=== PATIENT | female | born 1995 | race Caucasian/White ===

== ENCOUNTER 2020-05-21 11:29 | Outpatient (REF) | payer SELFPAY | END 2020-05-21 11:30 | disposition home or self-care (01) | LOC: HO.LNC 11:29 | PROVIDERS: Visit Provider Pathology Anatomic Pathology & Clinical Pathology | DX: Z13.89 Encounter for screening for other disorder (principal) ==

== ENCOUNTER 2020-06-02 07:56 | Outpatient (REF) | payer OTHER, SELFPAY | END 2020-06-02 07:57 | disposition home or self-care (01) | LOC: HO.MDS 07:56 | PROVIDERS: PCP Internal Medicine; Visit Provider Internal Medicine | DX: D50.9 Iron deficiency anemia, unspecified (principal) | CPT/HCPCS: 96365; 96366; J1200; J1750; Q0163 ==

== ENCOUNTER 2020-07-03 12:26 | Outpatient (REF) | payer OTHER, SELFPAY ==
[2020-07-03 12:54] LABS: COVID-19 Test Negative (Negative)
== END 2020-07-03 12:27 | disposition home or self-care (01) ==
LOC: HO.EMPCOV 12:26
PROVIDERS: Visit Provider Internal Medicine
DX: Z20.828 Contact with and (suspected) exposure to other viral communicable diseases (principal)
CPT/HCPCS: 87635; C9803

== ENCOUNTER 2020-07-10 11:41 | Outpatient (REF) | payer OTHER, SELFPAY ==
[2020-07-10 12:01] LABS: COVID-19 Test Negative (Negative)
== END 2020-07-10 11:42 | disposition home or self-care (01) ==
LOC: HO.EMPCOV 11:41
PROVIDERS: Visit Provider Internal Medicine
DX: Z20.828 Contact with and (suspected) exposure to other viral communicable diseases (principal)
CPT/HCPCS: 87635; C9803

== ENCOUNTER → 2020-07-15 10:43 | Outpatient (BNVA) | payer OTHER, SELFPAY | PROVIDERS: Visit Provider Physician Assistant Medical | DX: Z13.89 Encounter for screening for other disorder (principal) | CPT/HCPCS: 99202 ==

== ENCOUNTER → 2020-07-17 12:56 | Outpatient (BNVA) | payer OTHER, SELFPAY | PROVIDERS: Visit Provider Physician Assistant Medical | DX: Z76.89 Persons encountering health services in other specified circumstances (principal) | CPT/HCPCS: 99213 ==

== ENCOUNTER → 2020-07-21 14:03 | Outpatient (BNVA) | payer OTHER, SELFPAY | PROVIDERS: Visit Provider Physician Assistant | DX: M54.5 Low back pain (principal) | CPT/HCPCS: 72110; 99214 ==

== ENCOUNTER → 2020-07-28 13:31 | Outpatient (BNVA) | payer OTHER, SELFPAY | PROVIDERS: PCP Internal Medicine; Visit Provider Physician Assistant Medical | DX: Z13.89 Encounter for screening for other disorder (principal) | CPT/HCPCS: 99213 ==

== ENCOUNTER 2020-07-28 14:46 | Outpatient (RCR) | payer OTHER, SELFPAY ==
--- NOTE | 2020-07-28 16:18 | MHC.PT.EP ---
[facility] [place] Office [place] Office [place] Office [address] Seb Burdick [address] [phone] F: [phone] F: [phone] F: [phone] F: [phone] Physical Therapy Plan of Care Date of Evaluation: 07/28/20 Date of Surgery: NA Diagnosis: LUMBAR AND THORACIC STRAIN Assessment: Pt IS 24 YO F REFERRED TO PT FROM AFTER AN INCIDENT AT WORK ON 07/14/20. 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 FELT PAIN IN MID>LB ABOUT 1 HR LATER. PRESENTS TO PT WITH TIGHT LUMBAR PARASPINALS WITH LIMITED TRUNK ROM. Pt IS HYPERLORDOTIC AND IS TTP LUMBAR PARASPINALS, SHOULD BENEFIT FROM PT TO ADDRESS THESE ISSUES Frequency and Duration: The patient will be seen 3X/WK X 4 WKS Short Term Goals: 1. I HEP 2. INCREASED AWARENESS BACK CARE AND POSTURE 3. Pt TO DEMONSTRATE 2-3 TASKS WITH PROPER BODY MECH Roller Pneumatic Goals: 1. RTW 2. IMPROVED MOD OSWESTRY 3. IMPROVED TRUNK ROM 25% T/O 4. DECREASED BACK PAIN AT LEAST 50% WITH ADLS Treatment Plan: Modalities to reduce pain, spasms and effusion. Manual therapy to restore motion and function. Therapeutic exercise to improve strength and flexibility. Neuromuscular re-education for posture and balance. Therapeutic activities to return to functional activities of daily living. Electronically signed by: MATT ROACH PT Please sign and return to therapist. Thank you for your referral.
--- NOTE | 2020-08-18 14:28 | MHC.PT.DC ---
[facility] [place] Office [place] Office [place] Office [address] Seb Burdick [address] [phone] F: [phone] F: [phone] F: [phone] F: [phone] Physical Therapy Discharge Report Diagnosis: LUMBAR AND THORACIC STRAIN Date of Surgery: NA Date of Evaluation: 07/28/20 Date of Discharge: 08/18/20 Treatments to Date: 1 Cancellations to Date: 0 No Shows to Date: 6 Discharge Status: Visit Non-compliance Discharge Summary: Pt SEEN FOR INIT EVAL ONLY THEN NO SHOWED REMAINING SHEDULED APPTS. AT INIT EVAL PER NOTE: Pt IS 24 YO F REFERRED TO PT FROM AFTER AN INCIDENT AT WORK ON 07/14/20. 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 FELT PAIN IN MID>LB ABOUT 1 HR LATER. PRESENTS TO PT WITH TIGHT LUMBAR PARASPINALS WITH LIMITED TRUNK ROM. Pt IS HYPERLORDOTIC AND IS TTP LUMBAR PARASPINALS, SHOULD BENEFIT FROM PT TO ADDRESS THESE ISSUES Electronically signed by: MATT ROACH PT Please sign and return to therapist. Thank you for your referral.
== END 2020-08-18 14:33 | disposition other institution (70) ==
LOC: HO.PT 14:46
PROVIDERS: PCP Internal Medicine; Visit Provider Physician Assistant
DX: S29.012D Strain of muscle and tendon of back wall of thorax, subsequent encounter (principal); S39.012D Strain of muscle, fascia and tendon of lower back, subsequent encounter
CPT/HCPCS: 97110; 97161

== ENCOUNTER 2021-10-28 12:21 | Outpatient (REF) | payer OTHER, SELFPAY ==
[2021-10-28 13:49] LABS: MANUAL DIFF FLAG NO
[2021-10-28 13:53] LABS: Basophils Percent Auto 0.5 % (0-2); Eosinophils Absolute Auto 0.2 X10*3/uL (0.0-0.4); Hematocrit 43.9 % (37.0-47.0); Hemoglobin 13.7 g/dl (12.0-16.0); Imm Gran Abs Auto 0.03 X10*3/uL (0.00-0.03); Imm Gran Pct Auto 0.4 % (0.0-0.4); Lymphocytes Absolute Auto 1.7 X10*3/uL (1.2-4.9); Lymphocytes Percent Auto 21.8 % (20-40); Mean Corpuscular HGB Conc 31.2 g/dl (31.0-35.0); Mean Corpuscular Hemoglobin 25.8 pg (27.0-33.0); Mean Corpuscular Volume 82.5 fL (80.0-98.0); Mean Platelet Volume 10.9 fL (9.4-12.3); Monocytes Absolute Auto 0.6 X10*3/uL (0.1-1.2); Monocytes Percent Auto 7.5 % (2-11); Neutrophils Absolute Auto 5.4 x10*3/uL (2.0-8.3); Neutrophils Percent Auto 67.8 % (45-73); Platelet Count 342 X10*3/uL (160-400); Red Blood Count 5.32 X10*6/uL (4.20-5.50); Red Cell Distribution Width 14.7 % (11.0-16.0)
[2021-10-28 14:13] LABS: Alanine Aminotransferase 11 U/L (0-31); Albumin Level 4.1 g/dL (3.5-5.0); Alkaline Phosphatase 65 U/L (39-117); Anion Gap 11 (12-20); Aspartate Amino Transferase 16 U/L (5-31); Bilirubin Total 0.2 mg/dL (0.0-1.0); Blood Urea Nitrogen 9 mg/dL (9-16); Calcium 9.3 mg/dL (8.4-10.2); Carbon Dioxide 24 mmol/L (22-29); Chloride 108 mmol/L (96-108); Estimated Glomerular Filt Rate > 60; Glucose Random 97 mg/dL (60-115); Potassium 4.3 mmol/L (3.3-5.1); Sodium 139 mmol/L (135-145); Total Protein 6.6 g/dL (6.5-8.0)
[2021-10-28 14:28] LABS: Ferritin 40 ng/mL (10-122); TSH reflex Free T4 0.84 uIU/mL (0.32-4.0)
[2021-10-28 14:33] LABS: Vitamin B12 188 pg/mL (200-900)
[2021-11-01 14:17] LABS: Vitamin D 25-OH, D2 <4 ng/mL; Vitamin D 25-OH, D3 25 ng/mL; Vitamin D 25-OH, Total 25 ng/mL (30-100)
== END 2021-10-28 12:22 | disposition home or self-care (01) ==
LOC: HO.HMGCLDS 12:21
PROVIDERS: PCP Internal Medicine; Visit Provider Internal Medicine
DX: E61.1 Iron deficiency (principal); R53.83 Other fatigue; E53.8 Deficiency of other specified B group vitamins
CPT/HCPCS: 36415; 80053; 82306; 82607; 82728; 84443; 85025

== ENCOUNTER 2021-11-08 22:21 | Emergency (ER) | payer OTHER, SELFPAY ==
--- NOTE | ~2021-11-08 | US_ITS ---
EXAMINATION: US pelvic ovarian doppler, US pelvic limited CLINICAL INFORMATION: Bilateral pelvic pain. COMPARISON: Abdominal ultrasound 04/26/2019. Pelvic ultrasound 09/07/2018. CT abdomen pelvis 06/05/2018. TECHNIQUE: Transabdominal pelvic ultrasound. FINDINGS: Uterus: The uterus measures 11.7 cm x 4.1 cm x 5.6 cm is present in an anteverted, retroflexed configuration. The endometrial echo complex measures 2 mm in maximum width. No uterine parenchymal lesions identified. The right ovary measures 2.0 cm x 1.1 cm x 1.4 cm for an estimated volume of 1.6 mm. The left ovary measures 2.5 cm x 1.7 cm x 2.0 cm for an estimated volume of 4.5 mm. The ovaries are normal in appearance. Transabdominal spectral interrogation demonstrates grossly normal low resistive vascular waveforms within the left and right ovaries. Of note, the right ovary is suboptimally visualized secondary to a difficult sonographic window to visualize the right adnexal region. No free intraperitoneal fluid is identified. US/US pelvic ovarian doppler IMPRESSION: Normal transabdominal pelvic ultrasound. Normal transabdominal sonographic appearance of the uterus and ovaries.
--- NOTE | ~2021-11-08 | US_ITS ---
EXAMINATION: US pelvic ovarian doppler, US pelvic limited CLINICAL INFORMATION: Bilateral pelvic pain. COMPARISON: Abdominal ultrasound 04/26/2019. Pelvic ultrasound 09/07/2018. CT abdomen pelvis 06/05/2018. TECHNIQUE: Transabdominal pelvic ultrasound. FINDINGS: Uterus: The uterus measures 11.7 cm x 4.1 cm x 5.6 cm is present in an anteverted, retroflexed configuration. The endometrial echo complex measures 2 mm in maximum width. No uterine parenchymal lesions identified. The right ovary measures 2.0 cm x 1.1 cm x 1.4 cm for an estimated volume of 1.6 mm. The left ovary measures 2.5 cm x 1.7 cm x 2.0 cm for an estimated volume of 4.5 mm. The ovaries are normal in appearance. Transabdominal spectral interrogation demonstrates grossly normal low resistive vascular waveforms within the left and right ovaries. Of note, the right ovary is suboptimally visualized secondary to a difficult sonographic window to visualize the right adnexal region. No free intraperitoneal fluid is identified. US/US pelvic limited IMPRESSION: Normal transabdominal pelvic ultrasound. Normal transabdominal sonographic appearance of the uterus and ovaries.
[2021-11-08 23:33] VITALS: BP 136/72; PULSE 99; RESP 18; TEMP 36.9; O2SAT 98; BMI 32.9
--- NOTE | 2021-11-09 00:37 | ED_ITS ---
HPI - Female Genitourinary General Chief complaint: Urogenital-Female Stated complaint: Vaginal pain Time Seen by Provider: 11/09/21 00:10 Source: patient Mode of arrival: ambulatory Limitations: no limitations History of Present Illness HPI Narrative: This is a 26-year-old female presenting to the emergency department with swelling to the labia and vaginal discharge since , 3 days ago. Patient tells me that she has been having a clear / white thin vaginal discharge, she tells me she has been having a lot of discharge and has been using a pad. She also reports burning to the labia with urination She also reports intermittent itching.. Patient tells me that she recently finished a prescription of amoxicillin for strep throat and this started shortly after. Patient tells me she has been with the same partner for a while and she has low suspicion for STDs/ STIs. She reports that her vagina hurts and she is having a hard time describing this pain. She points at her mons pubis and tells me it hurts there. She denies urinary frequency, urgency, chest pain, shortness of breath, fevers, chills, vaginal bleeding, constipation, diarrhea , flank pain. MD elicited complaint: vaginal discharge Onset (ago): day(s) (3) Location of symptoms: external genitalia Severity: moderate Quality of pain: burning Consistency: constant Vaginal discharge: white and creamy Vaginal bleeding: moderate Urinary symptoms: Dysuria Exacerbating factors: none Relieving factors: none Associated symptoms: denies other symptoms Treatment prior to arrival: none Sexual activity: Yes Patient : No Related Data Home Medications Medication Instructions Recorded Confirmed albuterol sulfate 90 mcg/actuation 1 puff PO Q4H PRN 05/13/20 10/28/21 aerosol inhaler Previous Rx's Medication Instructions Recorded amoxicillin 875 mg tablet 875 mg PO Q12H #14 tab 10/30/21 cholecalciferol (vitamin D3) 1,250 1,250 mcg PO QWEEK 90 Days #13 cap 11/03/21 mcg (50,000 unit) capsule cefuroxime axetil 250 mg tablet 250 mg PO BID 7 Days #14 tab 11/09/21 doxycycline hyclate 100 mg capsule 100 mg PO BID 7 Days #14 cap 11/09/21 fluconazole 150 mg tablet 150 mg PO DAILY #1 tab 11/09/21 Allergies Allergy/AdvReac Type Severity Reaction Status Date / Time No Known Allergies Allergy Verified 11/08/21 23:33 [No Known Allergies*] Review of Systems Review of Systems: Constitutional : No Weight loss, No Fever, No Chills, No Fatigue, No Malaise ENT/Mouth : No sore throat, No Rhinorrhea Eyes: No Eye Pain, No Swelling, No Redness Cardiovascular : No Chest Pain, No SOB, No Dyspnea on Exertion, No Orthopnea, No Edema, No Palpitations Respiratory : No Cough, No Sputum, No Wheezing Gastrointestinal : No Nausea, No Vomiting, No Diarrhea, No Constipation, No abdominal Pain, No Hematochezia, No Melena Genitourinary : No Dysuria, No Urinary Frequency, No Hematuria, + vaginal discharge Musculoskeletal : No joint pain, No Myalgias, No Joint Swelling Skin : No Skin Lesions, No rash Neuro : No Weakness, No Numbness, No Dizziness, No Headache Psych : No Anxiety/Panic, No Depression All other systems reviewed and are negative Yes all other systems are reviewed and are negative [facility] Past Medical History Attestation statement: The following information was validated with the patient. Source: old records reviewed and nursing notes reviewed Medical History B12 deficiency Chronic headaches Fatigue Iron deficiency Swelling of lower extremity Surgical History No pertinent past surgical history Family History Family History Father No problems noted. Mother No problems noted. Sister No problems noted. Social History Social History Housing: Apartment Patient Tobacco Use Status: Never used Tobacco Advance Directives: No Patient : No Current occupational status: employed Cognitive needs: No Hearing needs: No Vision needs: No Physical Exam Vital Signs: Vital Signs: Last Vital Signs Temp 98.5 F 11/08/21 23:33 Pulse 99 11/08/21 23:33 Resp 18 11/08/21 23:33 BP 136/72 11/08/21 23:33 Pulse Ox 98 11/08/21 23:33 BMI result Body Mass Index 32.9 vital signs stable Appearance: Alert.? Oriented X3.? No acute distress.? Head: Normocephalic, atraumatic, no step-offs or deformities Eyes: Pupils equal, round and reactive to light.? ENT: Pharynx normal.? Neck: Normal inspection.? Neck supple.? CVS: Normal heart rate and rhythm.? Pulses normal.? Respiratory: No respiratory distress.? Breath sounds normal.? Abdomen: Soft and nontender.? Skin: Skin warm and dry.? Normal skin color.? Normal skin turgor.? Sensitive exam: swelling to bilateral labia, with white cheese like discharge, some thin discharis also noted. No lesions or lumps noted to the external genitalia. Extremities: No lower extremity edema.? No calf ttp. 5/5 strength to bilateral upper and lower extremities Back: No midline tenderness, no C-spine tenderness, full range of motion, no CVA tenderness bilaterally Neuro: Oriented X 3.? No motor deficit.? No sensory deficit. CN 2-12 intact Course Reevaluation(s) Reevaluation #1: Urine positive for UTI.Normal transabdominal pelvic ultrasound w/ Doppler. Normal transabdominal sonographic appearance of the uterus and ovaries. Based off patient history and physical exam I do not suspect torsion No Trichomonas. Positive for yeast. Patient agrees to prophylactic treatment for STDs. She will be discharged home on doxycycline to cover for chlamydia. She will be given ceftriaxone here to cover for gonorrhea. Advised her to have full panel STD testing. I will give her 1st dose of Diflucan here. And I will give her an additional dose for home. Time: 02:26 Reevaluation #2: comfortable with discharge home with PCP and OBGYN follow-up Time: 03:20 MDM - Female Genitourinary MDM Narrative Medical decision making narrative: 1230 26-year-old female presents with vaginal discharge x3 days. Physical exam significant for swelling to bilateral labia, with white cheese like discharge, some thin discharis also noted. No lesions or lumps noted to the external genitalia. plan at this time is for patient to self swab, pelvic ultrasound to rule out intra pelvic etiologies. Unlikely torsion based off story. Medical Records Attestation: I reviewed the patient's medical records. Lab Data Attestation: I reviewed the patient's lab results. Labs: Lab Results 11/08/21 11/08/21 Range/Units 23:50 23:50 Urine Color YELLOW Urine Appearance CLOUDY Urine pH 6.0 (5.0-8.0) Ur Specific [place] >= 1.030 H (1.005-1.025) Urine Protein 1+ H (NEG-TRACE) MG/DL Urine Glucose (UA) NEG (NEG) MG/DL Urine Ketones 5 (NEG) MG/DL Urine Blood 1+ H (NEG) Urine Nitrite NEG (NEG) Ur Leukocyte Esterase 2+ H (NEG) Urine RBC 10-14 H (0) /HPF Urine WBC 76-150 H (0-4) /HPF Ur Squamous Epith Cells 2+ /LPF Urine Bacteria 3+ /LPF Urine Mucus 3+ /LPF Urine Test NEGATIVE (NEGATIVE) Critical Care Time Critical Care Time Critical Care Time: No Discharge Plan Discharge Clinical Impression: Vaginal yeast infection, Vaginal discharge, Urinary tract infection Patient Disposition: Home, Self-Care Instructions: Yeast Infection (ED), Vaginal Discharge (ED) Additional Instructions: Take your medications as prescribed. If you were prescribed antibiotics today, it is important that you take your medication to their entirety, do not skip any doses, do not finish them early. Follow-up with your primary care provider this week. Follow-up with OBGYN this week. Return to the emergency department with new or worsening symptoms. Such as fevers, chills, chest pain, shortness of breath, nausea, vomiting, dizziness, headache, vision changes, lethargy In case of emergency call 911 Take doxycycline as prescribed. You were given fluconazole here in the emergency department repeat the dose if needed in 2 days. Prescriptions: New doxycycline hyclate 100 mg capsule 100 mg PO BID 7 Days Qty: 14 0RF fluconazole 150 mg tablet 150 mg PO DAILY Qty: 1 0RF cefuroxime axetil 250 mg tablet 250 mg PO BID 7 Days Qty: 14 0RF No Action amoxicillin 875 mg tablet 875 mg PO Q12H Qty: 14 0RF cholecalciferol (vitamin D3) 1,250 mcg (50,000 unit) capsule 1,250 mcg PO QWEEK 90 Days Qty: 13 0RF albuterol sulfate 90 mcg/actuation HFA aerosol inhaler 1 puff PO Q4H PRN (Reason: Shortness Of Breath) 0RF Referrals: Rober Osorio MD [Primary Care Provider] - 2 days Godwin Baez MD [Physician] - 2 days Stand Alone Forms: Work/School Release Interventions: ED Discharge Assessment Last Done: 11/09/21 02:50 Discharge Date/Time: 11/09/21 02:53
[2021-11-09 00:46] LABS: Appearance Urine CLOUDY; Color Urine YELLOW; Glucose Urine UA NEG (NEG); Leukocyte Esterase Urine 2+ (NEG); Nitrite Urine NEG (NEG); Specific Gravity - Urine >= 1.030 (1.005-1.025); UACC Culture Trigger YES; Urine Blood 1+ (NEG); Urine Ketones 5 MG/DL (NEG); Urine Protein 1+ MG/DL (NEG-TRACE)
[2021-11-09 00:49] LABS: UPreg QC Valid YES; Urine Pregnancy NEGATIVE (NEGATIVE)
[2021-11-09 01:19] LABS: Bacteria Urine 3+ /LPF; Mucus Urine 3+ /LPF; Squamous Epithelial Cell Urine 2+ /LPF
[2021-11-09] MEDS: cefTRIAXone sodium 500 MG, Lidocaine HCl 1 % MPF 1 ML IM (02:26)
[2021-11-09] MEDS: Fluconazole 150 MG TABLET PO (02:26)
[2021-11-09 03:22] LABS: CT PCR NOT DETECTED (Not Detect.); NG PCR NOT DETECTED (Not Detect.)
[2021-11-09 10:17] LABS: BV Int Neg Control Negative (Negative); BV Int Pos Control Positive (Positive)
== END 2021-11-09 02:53 | disposition home or self-care (01) ==
PROVIDERS: Physician Assistant; Emergency Provider Emergency Medicine; PCP Internal Medicine
DX: B37.3 Candidiasis of vulva and vagina (principal); N39.0 Urinary tract infection, site not specified
CPT/HCPCS: 76857; 81001; 81025; 87086; 87147; 87480; 87491; 87510; 87591; 87660; 93975; 96372; 99283; 99284; J0696

== ENCOUNTER 2022-08-26 11:04 | Emergency (ER) | payer OTHER, SELFPAY ==
[2022-08-26 11:13] VITALS: BP 136/67; PULSE 74; RESP 18; TEMP 36.6; O2SAT 98; BMI 31.8
--- NOTE | 2022-08-26 11:14 | ED_ITS ---
HPI - Medical Clearance General Chief complaint: Body Fluid Exposure Stated complaint: stuck with needle at work Time Seen by Provider: 08/26/22 11:31 Related Information Home Medications Medication Instructions Recorded Confirmed albuterol sulfate 90 mcg/actuation 1 puff PO Q4H PRN Shortness Of 05/13/20 08/24/22 aerosol inhaler Breath acetaminophen 500 mg tablet 1,000 mg PO Q6H PRN 08/24/22 08/24/22 (Tylenol Extra Strength) Previous Rx's Medication Instructions Recorded amitriptyline 10 mg tablet 10 mg PO BEDTIME 30 days #30 tabs 08/24/22 naproxen 500 mg tablet 500 mg PO ONCE 30 days #10 tabs 08/24/22 sumatriptan succinate 50 mg tablet 50 mg PO ONCE PRN migraine 08/24/22 headache 30 days #10 tabs Allergies Allergy/AdvReac Type Severity Reaction Status Date / Time No Known Allergies Allergy Verified 08/24/22 13:34 [No Known Allergies*] PMFSH Past Medical History Medical History B12 deficiency Chronic headaches Fatigue Iron deficiency Swelling of lower extremity Surgical History No pertinent past surgical history Family History Family History Father No problems noted. Mother No problems noted. Sister No problems noted. Social History Social History Housing: Apartment Patient Tobacco Use Status: Never used Tobacco Advance Directives: No Advance Directives Information Provided: No Current occupational status: employed Cognitive needs: No Hearing needs: No Vision needs: No Physical Exam Vital Signs: Vital Signs: Last Vital Signs Temp 98 F 08/26/22 11:13 Pulse 74 08/26/22 11:13 Resp 18 08/26/22 11:13 BP 136/67 08/26/22 11:13 Pulse Ox 98 08/26/22 11:13 O2 Del Method 08/26/22 11:13 BMI result Body Mass Index 31.8 Course Course Course Narrative: RME 11:15am 27-year-old female presenting to the ER with complaints of a needlestick injury to her right thumb that occurred prior to arrival while she was at [facility] obtaining blood 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 She reports she irrigated the wound immediately. She reports she is up-to-date on tetanus. She denies any other symptoms complaints concerns injuries at this time. Plan: Post exposure labs ordered at this time. Patient will be sent back to the waiting room to be evaluated in [facility]. Medical Decision Making Lab Data 08/26/22 11:21 Labs: Lab Results 08/26/22 08/26/22 08/26/22 Range/Units 11:21 11:21 11:21 WBC 7.3 (4.8-10.8) X10*3/uL RBC 5.23 (4.20-5.50) X10*6/uL Hgb 13.3 (12.0-16.0) g/dl Hct 42.4 (37.0-47.0) % MCV 81.1 (80.0-98.0) fL MCH 25.4 L (27.0-33.0) pg MCHC 31.4 (31.0-35.0) g/dl RDW 14.2 (11.0-16.0) % Plt Count 357 (160-400) X10*3/uL MPV 9.7 (9.4-12.3) fL Immature Gran % (Auto) 0.8 H (0.0-0.4) % Neut % (Auto) 57.4 (45-73) % Lymph % (Auto) 28.7 (20-40) % [place] % (Auto) 11.1 H (2-11) % Eos % (Auto) 0.8 (0-4) % Baso % (Auto) 1.2 (0-2) % Lymph # (Auto) 2.1 (1.2-4.9) X10*3/uL [place] # (Auto) 0.8 (0.1-1.2) X10*3/uL Eos # (Auto) 0.1 (0.0-0.4) X10*3/uL Baso # (Auto) 0.1 (0.0-0.2) X10*3/uL Abs Immat Gran (auto) 0.06 H (0.00-0.03) X10*3/uL Absolute Neuts (auto) 4.2 (2.0-8.3) x10*3/uL Absolute Nucleated RBC 0.000 (0.0-0.012) X10*3/uL Nucleated RBC % (auto) 0.0 (0.0-0.2) /100WBC Sodium 141 (135-145) mmol/L Potassium 4.7 (3.3-5.1) mmol/L Chloride 109 H (96-108) mmol/L Carbon Dioxide 23 (22-29) mmol/L Anion Gap 14 (12-20) BUN 10 (9-16) mg/dL Creatinine 0.81 (0.5-1.4) mg/dL Estim Creat Clear Calc 106.4 Estimated GFR > 60 Random Glucose 83 (60-115) mg/dL Calcium 9.2 (8.4-10.2) mg/dL Total Bilirubin 0.4 (0.0-1.0) mg/dL Direct Bilirubin < 0.2 (0.0-0.5) mg/dL AST 18 (5-31) U/L ALT 13 (0-31) U/L Alkaline Phosphatase 70 (39-117) U/L Total Protein 6.7 (6.5-8.0) g/dL Albumin 4.0 (3.5-5.0) g/dL Lipase 15 (8-78) U/L Hep Bs Antigen Negative (Negative) Hep Bs Antibody REACTIVE (Nonreactive) Hep B Core Total Ab Nonreactive (Nonreactive) Hepatitis C Ab (EIA) Nonreactive (Nonreactive) HIV 1&2 Ab/P24 Ag 4thGn Nonreactive (Nonreactive) Discharge Plan Discharge Clinical Impression: Exposure to blood or body fluid, Accidental hypodermic needlestick injury Patient Disposition: Home, Self-Care Instructions: Needle Stick Injuries (ED) Additional Instructions: Your levels were drawn today for hepatitis and HIV. You will be contacted for positive results Please try to find out more information about the patient which you were stuck If you do choose to change her mind and start taking the PEP you need started within 72 hours PEP Must Be Started Within 72 Hours of Possible Exposure to HIV Talk right away (within 72 hours) to your health care provider, an emergency room doctor, or an urgent care provider about PEP if you think you?ve recently been exposed to HIV: * during sex (for example, if the condom broke), * through sharing needles, syringes, or other equipment to inject drugs (for example, cookers), or * if you?ve been sexually assaulted. The sooner you start PEP, the better. Every hour counts. If you?re prescribed PEP, you?ll need to take it daily for 28 days. PEP is for Emergency Situations * PEP is given after a possible exposure to HIV. * PEP is not a substitute for regular use of other?HIV prevention https://www.cdc.gov/hiv/basics/prevention.html . * PEP is not the right choice for people who may be exposed to HIV frequently. * If you are at ongoing risk for HIV, such as through repeated exposures to HIV, talk to your health care provider about?PrEP https://ww w.cdc.gov/hiv/basics/prep.html ?(pre-exposure prophylaxis). Prescriptions: No Action albuterol sulfate 90 mcg/actuation HFA aerosol inhaler 1 puff PO Q4H PRN (Reason: Shortness Of Breath) acetaminophen [Tylenol Extra Strength] 500 mg tablet 1,000 mg PO Q6H PRN amitriptyline 10 mg tablet 10 mg PO BEDTIME 30 Days Qty: 30 0RF sumatriptan succinate 50 mg tablet 50 mg PO ONCE PRN (Reason: migraine headache) 30 Days Qty: 10 0RF Rx Instructions: do not exceed 4 doses per 24 hrs naproxen 500 mg tablet 500 mg PO ONCE 30 Days Qty: 10 0RF Referrals: [facility] [Outside] Interventions: ED Discharge Assessment Last Done: 08/26/22 12:16 Discharge Date/Time: 08/26/22 12:18
[2022-08-26 11:28] LABS: MANUAL DIFF FLAG NO
[2022-08-26 11:36] LABS: Basophils Absolute Auto 0.1 X10*3/uL (0.0-0.2); Basophils Percent Auto 1.2 % (0-2); Eosinophils Absolute Auto 0.1 X10*3/uL (0.0-0.4); Eosinophils Percent Auto 0.8 % (0-4); Hematocrit 42.4 % (37.0-47.0); Hemoglobin 13.3 g/dl (12.0-16.0); Imm Gran Abs Auto 0.06 X10*3/uL (0.00-0.03); Imm Gran Pct Auto 0.8 % (0.0-0.4); Lymphocytes Absolute Auto 2.1 X10*3/uL (1.2-4.9); Lymphocytes Percent Auto 28.7 % (20-40); Mean Corpuscular HGB Conc 31.4 g/dl (31.0-35.0); Mean Corpuscular Hemoglobin 25.4 pg (27.0-33.0); Mean Corpuscular Volume 81.1 fL (80.0-98.0); Mean Platelet Volume 9.7 fL (9.4-12.3); Monocytes Absolute Auto 0.8 X10*3/uL (0.1-1.2); Monocytes Percent Auto 11.1 % (2-11); Neutrophils Absolute Auto 4.2 x10*3/uL (2.0-8.3); Neutrophils Percent Auto 57.4 % (45-73); Platelet Count 357 X10*3/uL (160-400); Red Blood Count 5.23 X10*6/uL (4.20-5.50); Red Cell Distribution Width 14.2 % (11.0-16.0); White Blood Count 7.3 X10*3/uL (4.8-10.8)
--- OUTSIDE RECORDS SUMMARY | 2022-08-26 11:48 | XMS_ITS | Continuity of Care Document ---
:1996 Author Organization [facility] ic Address [address] [place] [address]- Care Team Providers Name Role Phone Devon YOO, Asma Primary Care Physician [place] [facility] [place] 05/05/22 - 06/18/[address] [address] Attending Physician: Not on Staff, Attending MD Allergies, Adverse Reactions, Alerts No Known Allergies Immunizations Given and Recorded Vaccine Date Status Refusal Reason influenza virus vaccine, inactivated 05/06/21 Given influenza virus vaccine, inactivated1 06/16/16 Given tetanus/diphtheria/pertussis, acel(Tdap) 10/20/16 Given 1Early/Late Reason: Med Not Available Medications Acetaminophen 0 Refills, Maintenance, 03/25/22 12:31:00 EDT, Partial fill upon patient request if the prescriptionis for a schedule II opioid drug. Start Date: 03/25/22 Status: OrderedPrenatal Multivitamins with Folic Acid 1 mg oral tablet 1 tablet, By Mouth, Daily, # 90 tablet, 2 Refills, Maintenance, 01/29/22 15:33:00 EDT, Tablet, [id number], Partial fill upon patient request if the prescription is for a schedule II opioid drug., 1 tablet By Mouth Daily, 160, cm, 01/20/22 14:2... Start Date: 01/29/22 Status: OrderedReglan 5 mg oral tablet See Instructions, 1 tablet By Mouth as needed up to 3 times daily, # 30 tablet, 1 Refills, Maintenance, 03/25/22 13:01:00 EDT, [id number], Partial fill upon patient request if the prescription is for a schedule II opioid drug., 160, cm, 03/25/... Start Date: 03/25/22 Status: Ordered Problem List Condition Confirmation Course Effective Dates Status Health Stat us Informant H/O Abnormal Pap Confirmed 11/14/17 Active smear of cervix1 H/O IV Iron Confirmed 2019 Active Infusion2 COVID-19 vaccine Confirmed 02/26/22 Active series completed3 H/O Migraines Confirmed Active Obese class I Confirmed Active [id number]3completed with booster. Social History Social History Type Response Smoking Status Never smoker entered on: 11/11/14 Sex Female Patient Care team information Care Team PersonnelName: Devon YOO, Caraa Position: [facility] Physician (General Medicine) Member Role: PCP Address: Address: [address] [place] [address]- Name: Ramon Hess RN Position: [facility] OB RN Member Role: Primary Care Nurse Care Team Related PersonsName: MIHIR PLASCENCIA Address: home [address] [place] [address] Name: KORIN MORENO Address: home [address] [place] [address]
--- OUTSIDE RECORDS SUMMARY | 2022-08-26 11:48 | XMS_ITS | Continuity of Care Document ---
:1996 Author Organization [facility] ic Address [address] [place] [address]- Care Team Providers Name Role Phone Devon YOO, Asma Primary Care Physician Encounter [facility] [place] Date(s): 04/30/22 - 06/05/[address] [address] Attending Physician: Darrell Richards DO Admitting Physician: Darrell Richards DO Referring Physician: Maggie Glover CNM Allergies, Adverse Reactions, Alerts No Known Allergies [...] 1 Refills, Maintenance, 03/25/22 13:01:00 EDT, [id number], Partial fill upon patient request if the prescription is for a schedule II opioid drug., 160, cm, ... Start Date: 03/25/22 Status: Ordered Problem List Condition Confirmation Course Effective Dates Status Health Stat us Informant H/O Abnormal Pap Confirmed 11/14/17 Active smear of cervix1 H/O IV Iron Confirmed 2019 Active Infusion2 COVID-19 vaccine Confirmed 02/26/22 Active series completed3 H/O Migraines Confirmed Active Obese class I Confirmed Active [id number]3completed with booster. Social History Social History Type Response Smoking Status Never smoker entered on: 11/11/14 Sex Female Patient Care team information Care Team PersonnelName: Devon YOO, Rober Position: [facility] Physician (General Medicine) Member Role: PCP Address: Address: [address] Name: Ramon Hess RN Position: [facility] OB RN Member Role: Primary Care Nurse Care Team Related PersonsName: MIHIR PLASCENCIA Address: home [address] [place] [id number] Name: KORIN MORENO Address: home [address] [place] [address]
--- OUTSIDE RECORDS SUMMARY | 2022-08-26 11:48 | XMS_ITS | Continuity of Care Document ---
:1996 Author Organization [facility] ic Address [address] [place] [address]- Care Team Providers Name Role Phone Devon YOO, Asma Primary Care Physician [place] [facility] [place]23[place] - 12/23/[address] [address] Allergies, Adverse Reactions, Alerts No Known Allergies Immunizations Given and Recorded Vaccine Date Status Refusal Reason influenza virus vaccine, inactivated 05/06/21 Given influenza virus vaccine, inactivated1 06/16/16 Given tetanus/diphtheria/pertussis, acel(Tdap) 10/20/16 Given 1Early/Late Reason: Med Not Available Medications Maricel 30 mg oral tablet 1 tablet = 30 mg, By Mouth, Once, # 1 tablet, 5 Refills, Soft Stop, 07/16/20 11:30:00 EST, [facility] #[id number], Partial fill upon patient request if the prescription is for a schedule II opioiddrug., 160, cm, 07/16/20 11:03:00 EST, Height, 81... Start Date: 07/16/20 Status: OrderedPrenatal Multivitamins with Folic Acid 1 mg oral tablet 1 tablet, By Mouth, Daily, # 90 tablet, 3 Refills, Maintenance, 11/26/21 8:43:00 EDT, Tablet, [facility] #[id number], Partial fill upon patient request if the prescription is for a schedule II opioid drug., 1 tablet By Mouth Daily, 160, cm, 11/26/21 8:08:... Start Date: 11/26/21 Status: Ordered Problem List Condition Effective Dates Status Health Status Informant Breast lump on right side at 2 o'clock Active position(Confirmed) Migraine headache(Confirmed) Active Obese class I(Confirmed) Active Screen for STD (sexually transmitted Active disease)(Confirmed) Social History Social History Type Response Smoking Status Never smoker entered on: 11/11/14 Sex Female
--- OUTSIDE RECORDS SUMMARY | 2022-08-26 11:48 | XMS_ITS | Continuity of Care Document ---
:1996 Author Organization [facility] ic Address [address] [place] [address]- Care Team Providers Name Role Phone Devon YOO, Asma Primary Care Physician Encounter [facility] [place] [place] Date(s): 03/11/22 - 04/10/[address] [address] Allergies, Adverse Reactions, Alerts No [...] 160, cm, ... Start Date: 03/25/22 Status: OrderedUnisom 25 mg oral tablet 1 tablet = 25 mg, By Mouth, Daily at bedtime, for 30 days, 15 to 30 minutes before bed, # 30 tablet,1 Refills, Acute 04/18/22 13:02:00 EDT, 02/17/22 13:02:00 EDT, Tablet, [id number], Partial fill upon patient request if the prescription is fo... Start Date: 02/17/22 Stop Date: 04/18/22 Status: OrderedVitamin B6 25 mg oral tablet 1 tablet = 25 mg, By Mouth, 3 times a day, for 30 days, # 90 tablet, 1 Refills, Acute 04/18/22 13:02:00 EDT, 02/17/22 13:02:00 EDT, [id number], Partial fill upon patient request if the prescription is for a schedule II opioid drug., 160, cm, 0... Start Date: 02/17/22 Stop Date: 04/18/22 Status: Ordered Problem List Condition Confirmation Course Effective Dates Status Health Stat us Informant H/O Abnormal Pap Confirmed 11/14/17 Active smear of cervix1 H/O Anemia Confirmed Active H/O Positive GBS Confirmed 12/22/16 Active test2 H/O Exposure to Confirmed 2020 Active STD3 H/O IV Iron Confirmed 2019 Active Infusion4 COVID-19 vaccine Confirmed 02/26/22 Active series completed5 H/O Migraines Confirmed Active Obese class I Confirmed Active /[id number]5completed with booster. Social History Social History Type Response Smoking Status Never smoker entered on: 11/11/14 Sex Female Patient Care team information PersonnelName: Devon YOO, Asma Address: Address: [facility] [place], [place] [address]
--- OUTSIDE RECORDS SUMMARY | 2022-08-26 11:48 | XMS_ITS | Continuity of Care Document ---
:1996 Author Organization [facility] ic Address [address] [place] [address]- Care Team Providers Name Role Phone Raimundo YOO, Grady Cope Primary Care Physician [place] [facility] [place] - 07/02/[address] [address]- [facility] Attending Physician: Zia Schaffer Admitting Physician: Zia Schaffer Referring Physician: Zia Schaffer Allergies, Adverse Reactions, Alerts Substance Reaction Severity Status NKA Active Immunizations Given and Recorded Vaccine Date Status Refusal Reason tetanus/diphtheria/pertussis, acel(Tdap) 10/20/16 Given influenza virus vaccine, inactivated1 06/16/16 Given 1Early/Late Reason: Med Not Available Medications Apri 0.15 mg-0.03 mg oral tablet 1 tablet, By Mouth, Daily, # 84 tablet, 3 Refills, Maintenance, 11/14/18 12:18:27 EDT, Tablet, 1 tablet By Mouth Daily Start Date: 11/14/18 Status: Orderedibuprofen 800 mg oral tablet 800 mg, 1, tablet, By Mouth, 3 times a day, PRN, # 90 tablet, Refills 0, Tot. Refills 0, Maintenance, for pain, 06/22/19 17:02:30 EST, Route to Pharmacy Electronically, [facility] #[id number], 160, cm, 06/22/19 16:40:40 EST, Height, 81, kg, 03/02... Start Date: 06/22/19 Status: OrderedLiletta 52 mg intrauteral device 1 each = 52 mg, Vaginally, Once, # 1 each, 0 Refills, Soft Stop, 12/22/16 12:25:01 Start Date: 12/22/16 Status: OrderedZofran ODT 4 mg oral tablet, disintegrating 1 tablet = 4 mg, By Mouth, 3 times a day, PRN Nausea, # 15 tablet, 0 Refills, Maintenance, 07/26/18 0:11:29 EST Start Date: 07/26/18 Stop Date: 07/31/18 Status: Ordered Problem List Condition Effective Dates Status Health Status Informant Breast lump on right side at 2 o'clock Active position(Confirmed) Migraine headache(Confirmed) Active Screen for STD (sexually transmitted Active disease)(Confirmed) Social History Social History Type Response Smoking Status Never smoker entered on: 11/11/14 Sex
--- OUTSIDE RECORDS SUMMARY | 2022-08-26 11:48 | XMS_ITS | Continuity of Care Document ---
:1996 Author Organization [facility] ic Address [address] [place] [address]- Care Team Providers Name Role Phone Devon YOO, Asma Primary Care Physician [place] [facility] [place](s): 05/13/22 - 06/20/[address] [address] Attending Physician: Maggie Glover CNM Admitting Physician: Maggie Glover CNM Allergies, Adverse Reactions, [...] Confirmed Active Obese class I Confirmed Active 32181XxkcdhhBr[facility]am [facility]3completed with booster. Social History Social History Type Response Smoking Status Never smoker entered on: 11/11/14 Sex Female Patient Care team information Care Team PersonnelName: Devon YOO, Caraa Position: [facility] Physician (General Medicine) Member Role: PCP Address: Address: [address] [place] [address]- Name: Ramon Hess RN Position: [facility] OB RN Member Role: Primary Care Nurse Care Team Related PersonsName: MIHIR PLASCENCIA Address: home [address] [place] [address] Name: KORIN MORENO Address: home [address] [place] [address]
--- OUTSIDE RECORDS SUMMARY | 2022-08-26 11:48 | XMS_ITS | Continuity of Care Document ---
:1996 Author Organization [facility] ic Address [address] [place] [address]- Care Team Providers Name Role Phone Devon YOO, Asma Primary Care Physician Encounter [facility] [place] Date(s): 01/12/22 - 02/11/[address] [address]- Allergies, Adverse Reactions, Alerts No Known Allergies Immunizations Given and Recorded Vaccine Date Status Refusal Reason influenza virus vaccine, inactivated 05/06/21 Given influenza virus vaccine, inactivated1 06/16/16 Given tetanus/diphtheria/pertussis, acel(Tdap) 10/20/16 Given 1Early/Late Reason: Med Not Available Medications Multivitamins with Folic Acid 1 mg oral tablet 1 tablet, By Mouth, Daily, # 90 tablet, 2 Refills, Maintenance, 01/29/22 15:33:00 EDT, Tablet, [id number], Partial fill upon patient request if the prescription is for a schedule II opioid drug., 1 tablet By Mouth Daily, 160, cm, 01/20/22 14:2... Start Date: 01/29/22 Status: OrderedPrenatal Multivitamins with Folic Acid 1 mg oral tablet 1 tablet, By Mouth, Daily, # 90 tablet, 3 Refills, Maintenance, 11/26/21 8:43:00 EDT, Tablet, [id number], Partial fill upon [...]
--- OUTSIDE RECORDS SUMMARY | 2022-08-26 11:49 | XMS_ITS | Continuity of Care Document ---
:1996 Author Organization [facility] ic Address [address] [place] [address]- Care Team Providers Name Role Phone Devon YOO, Rober Primary Care Physician Encounter [facility] [place] Date(s): 10/22/20 - 11/21/[address] [address]- Attending Physician: Zia Schaffer Admitting Physician: Zia Schaffer Referring Physician: AdmtrZia Allergies, Adverse Reactions, Alerts Substance Reaction Severity Status NKA Active Immunizations Given and Recorded Vaccine Date Status Refusal Reason tetanus/diphtheria/pertussis, acel(Tdap) 10/20/16 Given influenza virus vaccine, inactivated1 06/16/16 Given 1Early/Late Reason: Med Not Available Medications Maricel 30 mg oral tablet 1 tablet = 30 mg, By Mouth, Once, # 1 tablet, 5 Refills, Soft Stop, 07/16/20 11:30:00 EST, [facility] #[id number], Partial fill upon patient request if the prescription is for a schedule II opioiddrug., 160, cm, 07/16/20 11:03:00 EST, Height, 81... Start Date: 07/16/20 Status: Ordered Problem List Condition Effective Dates Status Health Status Informant Breast lump on right side at 2 o'clock Active position(Confirmed) Migraine headache(Confirmed) Active Screen for STD (sexually transmitted Active disease)(Confirmed) Social History Social History Type Response Smoking Status Never smoker entered on: 11/11/14 Sex Female
--- OUTSIDE RECORDS SUMMARY | 2022-08-26 11:49 | XMS_ITS | Continuity of Care Document ---
:1996 Author Organization [facility] Address Unavailable , Care Team Providers Name Role Phone Devon YOO, Rober Primary Care Physician En[place] [facility] [place] Date(s): 09/21/21 - 10/21/21 [facility] Allergies, Adverse Reactions, Alerts No Known Allergies Immunizations Given and Recorded Vaccine Date Status Refusal Reason influenza virus vaccine, inactivated 05/06/21 Given influenza virus vaccine, inactivated1 06/16/16 Given tetanus/diphtheria/pertussis, acel(Tdap) 10/20/16 Given 1Early/Late Reason: Med Not Available Medications Maricel 30 mg oral tablet 1 tablet = 30 mg, By Mouth, Once, # 1 tablet, 5 Refills, Soft Stop, 07/16/20 11:30:00 EST, [facility] #[id number], Partial fill upon patient request if the [...]
--- OUTSIDE RECORDS SUMMARY | 2022-08-26 11:49 | XMS_ITS | Continuity of Care Document ---
:1996 Author Organization [facility] ic Address [address] [place] [address]- Care Team Providers Name Role Phone Devon YOO, Asma Primary Care Physician [place] [facility] [place]13[place] - 06/12/[address] [address] Allergies, Adverse Reactions, Alerts No Known Allergies [...] Confirmed Active Obese class I Confirmed Active 00188[facility]3completed with booster. Social History Social History Type Response Smoking Status Never smoker entered on: 11/11/14 Sex Female Patient Care team information Care Team PersonnelName: Devon YOO, Asma Position: [facility] Physician (General Medicine) Member Role: PCP Address: Address: [address] [place] [address]- Name: Ramon Hess RN Position: [facility] OB RN Member Role: Primary Care Nurse Care Team Related PersonsName: MIHIR PLASCENCIA Address: home [address] [place] [address] Name: KORIN MORENO Address: [address] [address]
--- OUTSIDE RECORDS SUMMARY | 2022-08-26 11:49 | XMS_ITS | Continuity of Care Document ---
:1996 Author Organization [facility] ic Address [address] [place] [address]- Care Team Providers Name Role Phone Devon YOO, Asma Primary Care Physician Encounter [facility] [place] Date(s): 02/12/22 - 03/14/[address] [address] Allergies, Adverse Reactions, Alerts No Known [...] cm, 01/20/22 14:2... Start Date: 01/29/22 Status: OrderedUnisom 25 mg oral tablet 1 [...] Acute 04/18/22 13:02:00 EDT, 02/17/22 13:02:00 EDT, [facility]/pharmacy #[id number], Partial fill upon patient request if the prescription is for a schedule II opioid drug., 160, cm, 0... Start Date: 02/17/22 Stop Date: 04/18/22 Status: Ordered Problem List Condition Effective Dates Status Health Status Informant H/O Abnormal Pap smear of 11/14/17 Active cervix(Confirmed)1 H/O Anemia(Confirmed) Active H/O Positive GBS test(Confirmed)2 12/22/16 Active H/O Exposure to STD(Confirmed)3 2020 Active H/O IV Iron Infusion(Confirmed)4 2019 Active COVID-19 vaccine series 02/26/22 Active completed(Confirmed)5 H/O Migraines(Confirmed) Active Vag/[address]5completed with booster. Social History Social History Type Response Smoking Status Never smoker entered on: 11/11/14 Sex Female Care Team PersonnelName: Devon YOO, Asma Address: [address] [place] [address]
--- OUTSIDE RECORDS SUMMARY | 2022-08-26 11:49 | XMS_ITS | Continuity of Care Document ---
:1996 Author Organization [facility] ic Address [address] [place] [address]- Care Team Providers Name Role Phone Devon YOO, Asmbailey Primary Care Physician [place] [facility] [place] 12/12/19 - 01/11/[address] [address]- [facility] Attending Physician: Zia Schaffer Admitting Physician: Zia Schaffer Referring Physician: Zia Schaffer Allergies, Adverse Reactions, Alerts Substance Reaction Severity Status NKA Active Immunizations Given and Recorded Vaccine Date Status Refusal Reason tetanus/diphtheria/pertussis, acel(Tdap) 10/20/16 Given influenza virus vaccine, inactivated1 06/16/16 Given 1Early/Late Reason: Med Not Available Medications Xulane 150 mcg-35 mcg/24 hr transdermal film, extended release 1 film, Topically, Every week, Maintenance, # 12 patch, 3 Refills, Soft Stop, 12/12/19 18:09:00 EDT,[facility] #[id number], 1 film Topically Every week,Instr:Maintenance, 160, cm, 12/12/19 17:49:00 EDT, Height, 81, kg, 03/02/19 3:26:00 EDT, Dry... Start Date: 12/12/19 Status: Ordered Problem List Condition Effective Dates Status Health Status Informant Breast lump on right side at 2 o'clock Active position(Confirmed) Migraine headache(Confirmed) Active Screen for STD (sexually transmitted Active disease)(Confirmed) Social History Social History Type Response Smoking Status Never smoker entered on: 11/11/14 Sex Female
--- OUTSIDE RECORDS SUMMARY | 2022-08-26 11:49 | XMS_ITS | Continuity of Care Document ---
:1996 Author Organization [facility] ic Address [address] [place] [address]- Care Team Providers Name Role Phone Devon YOO, Asma Primary Care Physician En[place] [facility] [place] Date(s): 07/18/20 - 08/17/[address] [address] Allergies, Adverse Reactions, Alerts Substance Reaction Severity Status NKA Active Immunizations Given and Recorded Vaccine Date Status Refusal Reason tetanus/diphtheria/pertussis, acel(Tdap) 10/20/16 Given influenza virus vaccine, inactivated1 06/16/16 Given 1Early/Late Reason: Med Not Available Medications Maricel 30 mg oral tablet 1 tablet = 30 mg, By Mouth, Once, # 1 tablet, 5 Refills, Soft Stop, 07/16/20 11:30:00 EST, [facility] #[id number], Partial fill upon patient request if the [...]
--- OUTSIDE RECORDS SUMMARY | 2022-08-26 11:49 | XMS_ITS | Continuity of Care Document ---
:1996 Author Organization [facility] ic Address [address] [place] [address]- Care Team Providers Name Role Phone Devon YOO, Asma Primary Care Physician En[place] [facility] [place] Date(s): 11/06/21 - 12/06/[address] [address]- Allergies, Adverse Reactions, Alerts No Known Allergies Immunizations Given and Recorded Vaccine Date Status Refusal Reason influenza virus vaccine, inactivated 05/06/21 Given influenza virus vaccine, inactivated1 06/16/16 Given tetanus/diphtheria/pertussis, acel(Tdap) 10/20/16 Given 1Early/Late Reason: Med Not Available Medications Maricel 30 mg oral tablet 1 tablet = 30 mg, By Mouth, Once, # 1 tablet, 5 Refills, Soft Stop, 07/16/20 11:30:00 EST, [facility] #[id number], Partial fill upon patient request if the prescription is for a schedule II opioiddrug., 160, cm, 07/16/20 11:03:00 EST, Height, 81... Start Date: 07/16/20 Status: OrderedPrenatal Multivitamins with Folic Acid 1 mg oral tablet 1 tablet, By Mouth, Daily, # 90 tablet, 3 Refills, Maintenance, 11/26/21 8:43:00 EDT, Tablet, [facility]/pharmacy #[id number], Partial fill upon patient request if the [...]
--- OUTSIDE RECORDS SUMMARY | 2022-08-26 11:49 | XMS_ITS | Continuity of Care Document ---
:1996 Author Organization [facility] ic Address [address] [place] [address]- Care Team Providers Name Role Phone Devon YOO, Caraa Primary Care Physician [place] [facility] [place](s): 09/18/19 - 12/16/[address] [address]- [facility] Attending Physician: Maggie Glover CNM Admitting Physician: Maggie Glover CNM Referring Physician: Devon YOO, Rober Allergies, Adverse Reactions, Alerts Substance Reaction Severity Status NKA Active Immunizations Given and Recorded Vaccine Date Status Refusal Reason tetanus/diphtheria/pertussis, acel(Tdap) 10/20/16 Given influenza virus vaccine, inactivated1 06/16/16 Given 1Early/Late Reason: Med Not Available Medications Xulane 150 mcg-35 mcg/24 hr transdermal film, extended release 1 film, Topically, Every week, Maintenance, # 12 patch, 3 Refills, Soft Stop, 12/12/19 18:09:00 EDT,[facility] #[id number], 1 film Topically Every week,Instr:Maintenance, 160, cm, [...]
--- OUTSIDE RECORDS SUMMARY | 2022-08-26 11:49 | XMS_ITS | Continuity of Care Document ---
:1996 Author Organization [facility] ic Address [address] [place] [address]- Care Team Providers Name Role Phone Devon YOO, Asma Primary Care Physician [place] [facility] [place] 05/07/21 - 06/06/[address] [address] Allergies, Adverse Reactions, Alerts Substance Reaction Severity [...] 5 Refills, Soft Stop, 07/16/20 11:30:00 EST, [facility] #[id number], Partial fill upon patient request if the [...]
--- OUTSIDE RECORDS SUMMARY | 2022-08-26 11:49 | XMS_ITS | Continuity of Care Document ---
:1996 Author Organization [facility] ic Address [address] [place] [address]- Care Team Providers Name Role Phone Devon YOO, Asma Primary Care Physician [place] [facility] [place] - 05/21/[address] [address] Attending Physician: Not on Staff, Attending [...] Confirmed Active Obese class I Confirmed Active [id number] with booster. Social History Social History Type Response Smoking Status Never smoker entered on: 11/11/14 Sex Female Patient Care team information Care Team PersonnelName: Devon YOO, Caraa Position: [facility] Physician (General Medicine) Member Role: PCP Address: Address: [address] [place] [address]- Name: Ramon Hess RN Position: [facility] OB RN Member Role: Primary Care Nurse Care Team Related PersonsName: MIHIR PLASCENCIA Address: home [address] [place] [address] Name: KORIN MORENO Address: home [address] [place] [address]
--- OUTSIDE RECORDS SUMMARY | 2022-08-26 11:49 | XMS_ITS | Continuity of Care Document ---
:1996 Author Organization [facility] ic Address [address] [place] [address]- Care Team Providers Name Role Phone Devon YOO, Rober Primary Care Physician Encounter [facility] [place] Date(s): 05/06/21 - 06/05/[address] [address]- Attending Physician: Zia Schaffer Admitting Physician: Zia [...] 5 Refills, Soft Stop, 07/16/20 11:30:00 EST, [facility] #[id number], Partial fill upon patient request if the [...]
--- OUTSIDE RECORDS SUMMARY | 2022-08-26 11:49 | XMS_ITS | Continuity of Care Document ---
:1996 Author Organization [facility] ic Address [address] [place] [address]- Care Team Providers Name Role Phone Devon YOO, Asmbailey Primary Care Physician Encounter [facility] [place] Date(s): 07/24/20 - 11/21/[address] [address] Attending Physician: Maggie Glover CNM Admitting Physician: Maggie Glover CNM Allergies, Adverse Reactions, Alerts Substance Reaction Severity Status NKA Active Immunizations Given and Recorded Vaccine Date Status Refusal Reason tetanus/diphtheria/pertussis, acel(Tdap) 10/20/16 Given influenza virus vaccine, inactivated1 06/16/16 Given 1Early/Late Reason: Med Not Available Medications Maricel 30 mg oral tablet 1 tablet = 30 mg, By Mouth, Once, # 1 tablet, 5 Refills, Soft Stop, 07/16/20 11:30:00 EST, [facility] #[id number], Partial fill upon patient request if the [...]
--- OUTSIDE RECORDS SUMMARY | 2022-08-26 11:49 | XMS_ITS | Continuity of Care Document ---
:1996 Author Organization [facility] ic Address [address] [place] [address]- Care Team Providers Name Role Phone Devon YOO, Asma Primary Care Physician Encounter [facility] [place] Date(s): 02/26/22 - 03/28/[address] [address] Allergies, Adverse Reactions, Alerts No Known [...] 04/18/22 13:02:00 EDT, 02/17/22 13:02:00 EDT, Tablet, [facility]/pharmacy #[id number], Partial fill upon patient request if [...] to STD(Confirmed)3 2020 Active H/O IV Iron Infusion(Confirmed)2019 Active COVID-19 vaccine series 02/26/22 Active completed(Confirmed)5 H/O Migraines(Confirmed) Active Obese class I(Confirmed) Active Vag/[id number]5completed with booster. Social History Social History Type Response Smoking Status Never smoker entered on: 11/11/14 Sex Female Care Team PersonnelName: Devon YOO, Asma Address: [address] [place] [address]
--- OUTSIDE RECORDS SUMMARY | 2022-08-26 11:49 | XMS_ITS | Continuity of Care Document ---
:1996 Author Organization [facility] Address [address] [place] [address]- Care Team Providers Name Role Phone Raimundo YOO, Grady Cope Primary Care Physician [place] [facility] [place] 06/23/19 - 06/23/[address] [address]- [facility] Attending Physician: Brooke Brandt DO Allergies, Adverse Reactions, Alerts Substance Reaction Severity [...] 06/22/19 17:02:30 EST, Route to Pharmacy Electronically, [facility] #[id number], 160, cm, 06/22/19 16:40:40 EST, Height, 81, [...]
--- OUTSIDE RECORDS SUMMARY | 2022-08-26 11:49 | XMS_ITS | Continuity of Care Document ---
:1996 Author Organization [facility] ic Address [address] [place] [address]- Care Team Providers Name Role Phone Devon YOO, Asma Primary Care Physician Encounter [facility] [place] Date(s): 04/01/22 - 07/30/[address] [address] Attending Physician: Maggie Glover CNM Admitting Physician: [...] Confirmed Active Obese class I Confirmed Active 69655[facility]3completed with booster. Social History Social History Type Response Smoking Status Never smoker entered on: 11/11/14 Sex Female Patient Care team information Care Team PersonnelName: Devon YOO, Caraa Position: [facility] Physician (General Medicine) Member Role: PCP Address: Address: [address] [place] [address]- Name: Ramon Hess RN Position: [facility] OB RN Member Role: Primary Care Nurse Care Team Related PersonsName: MIHIR PLASCENCIA Address: home [address] [place] [address] Name: KORIN MORENO Address: home [address] [place] [address]
--- OUTSIDE RECORDS SUMMARY | 2022-08-26 11:49 | XMS_ITS | Continuity of Care Document ---
:1996 Author Organization [facility] ic Address [address] [place] [address]- Care Team Providers Name Role Phone Devon YOO, Asma Primary Care Physician Encounter [facility] [place] Date(s): 07/15/20 - 08/14/[address] [address] Allergies, Adverse Reactions, Alerts Substance Reaction Severity Status NKA Active Immunizations Given and Recorded Vaccine Date Status Refusal Reason tetanus/diphtheria/pertussis, acel(Tdap) 10/20/16 Given influenza virus vaccine, inactivated1 06/16/16 Given 1Early/Late Reason: Med Not Available Medications Maricel 30 mg oral tablet 1 tablet = 30 mg, By Mouth, Once, # 1 tablet, 5 Refills, Soft Stop, 07/16/20 11:30:00 EST, [facility] #[id number], Partial fill upon patient request if the [...]
--- OUTSIDE RECORDS SUMMARY | 2022-08-26 11:49 | XMS_ITS | Continuity of Care Document ---
:1996 Author Organization [facility] ic Address [address] [place] [address]- Care Team Providers Name Role Phone Devon YOO, Asma Primary Care Physician Encounter [facility] [place] Date(s): 02/17/22 - 03/19/[address] [address]- Allergies, Adverse Reactions, Alerts No Known Allergies [...] Acute 04/18/22 13:02:00 EDT, 02/17/22 13:02:00 EDT, [facility]/pharmacy #[id number], Partial fill upon patient request if the [...] series 02/26/22 Active completed(Confirmed)5 H/O Migraines(Confirmed) Active Vag/Pec9Dgcxmekdnji7Vwxnq[address] [place], [place] [address]completed with booster. Social History Social History Type Response Smoking Status Never smoker entered on: 11/11/14 Sex Female Care Team PersonnelName: Devon YOO, Asma Address: [address] [place] [address]
--- OUTSIDE RECORDS SUMMARY | 2022-08-26 11:49 | XMS_ITS | Continuity of Care Document ---
:1996 Author Organization [facility] ic Address [address] [place] [address]- Care Team Providers Name Role Phone Devon YOO, Asma Primary Care Physician Encounter [facility] [place] Date(s): 04/02/22 - 06/02/[address] [address] Attending Physician: Not on Staff, Attending MD [...] Confirmed Active Obese class I Confirmed Active 82133[facility]3completed with booster. Social History Social History Type Response Smoking Status Never smoker entered on: 11/11/14 Sex Female Patient Care team information Care Team PersonnelName: Devon YOO, Caraa Position: [facility] Physician (General Medicine) Member Role: PCP Address: Address: [address] [place] [address]- Name: Ramon Hess RN Position: [facility] OB RN Member Role: Primary Care Nurse Care Team Related PersonsName: MIHIR PLASCENCIA Address: home [address] [place] [address] Name: KORIN MORENO Address: home [address] [place] [address]
--- OUTSIDE RECORDS SUMMARY | 2022-08-26 11:49 | XMS_ITS | Continuity of Care Document ---
:1996 Author Organization [facility] ic Address [address] [place] [address]- Care Team Providers Name Role Phone Devon YOO, Asma Primary Care Physician Encounter [facility] [place] Date(s): 03/25/22 - 07/02/[address] [address] Attending Physician: Maggie Glover CNM Admitting [...] Confirmed Active Obese class I Confirmed Active 87266[facility]dftcte[facility]3completed with booster. Social History Social History Type Response Smoking Status Never smoker entered on: 11/11/14 Sex Female Patient Care team information Care Team PersonnelName: Devon YOO, Caraa Position: [facility] Physician (General Medicine) Member Role: PCP Address: Address: [address] [place] [address]- Name: Ramon Hess RN Position: [facility] OB RN Member Role: Primary Care Nurse Care Team Related PersonsName: MIHIR PLASCENCIA Address: home [address] [place] [address] Name: KORIN MORENO Address: home [address] [place] [address]
--- OUTSIDE RECORDS SUMMARY | 2022-08-26 11:49 | XMS_ITS | Continuity of Care Document ---
:1996 Author Organization [facility] Address [address] [place] [address]- Care Team Providers Name Role Phone Devon YOO, Asma Primary Care Physician [place] [facility] [place](s): 02/03/22 - 02/03/[address] [address] Discharge Disposition: A-D/C Home Attending Physician: Renetta Cadet MD Admitting Physician: Renetta Cadet MD Referring Physician: Renetta Cadet MD Allergies, Adverse Reactions, Alerts No Known [...] Screen for STD (sexually transmitted Active disease)(Confirmed) Vital Signs Most recent to oldest [Reference Range]: 1 Height 160 cm (02/03/22 3:40 PM) Weight 83.6 kg (02/03/22 1:59 PM) Oxygen Saturation [94-100 %] 100 % (02/03/22 1:59 PM) Pulse Rate [55-90 bpm] 76 bpm (02/03/22 1:59 PM) Blood Pressure [90-138/55-84 mm Hg] 129/68 mm Hg (02/03/22 1:59 PM) Respiratory Rate [16-30 br/min] 18 br/min (02/03/22 1:59 PM) Temperature [96.8-100.4 DegF] 98.1 DegF (02/03/22 1:59 PM) Blood pressure sites Arm, right (02/03/22 1:59 PM) Temperature Route Oral (02/03/22 1:59 PM) Weight Obtained Via Standing scale (02/03/22 1:59 PM) Social History Social History Type Response Smoking Status Never smoker entered on: 11/11/14 Sex Female
--- OUTSIDE RECORDS SUMMARY | 2022-08-26 11:49 | XMS_ITS | Continuity of Care Document ---
:1996 Author Organization [facility] ic Address [address] [place] [address]- Care Team Providers Name Role Phone Devon YOO, Asma Primary Care Physician Encounter [facility] [place] Date(s): 04/16/22 - 08/14/[address] [address] Attending Physician: Maggie Glover CNM [...] 2 Refills, Maintenance, 01/29/22 15:33:00 EDT, Tablet, [facility]/pharmacy #[id number], Partial fill upon patient request if the [...] Confirmed Active Obese class I Confirmed Active 23993[facility]pcF[facility]3completed with booster. Social History Social History Type Response Smoking Status Never smoker entered on: 11/11/14 Sex Female Patient Care team information Care Team PersonnelName: Devon YOO, Caraa Position: [facility] Physician (General Medicine) Member Role: PCP Address: Address: [address] [place] [address]- Name: Ramon Hess RN Position: [facility] OB RN Member Role: Primary Care Nurse Care Team Related PersonsName: MIHIR PLASCENCIA Address: home [address] [place] [address] Name: KORIN MORENO Address: [address] [address]
--- OUTSIDE RECORDS SUMMARY | 2022-08-26 11:49 | XMS_ITS | Continuity of Care Document ---
:1996 Author Organization [facility] ic Address [address] [place] [address]- Care Team Providers Name Role Phone Devon YOO, Asma Primary Care Physician [place] [facility] [place] Date(s): 03/25/22 - 06/05/[address] [address] Attending Physician: Maggie Glover [...] Confirmed Active Obese class I Confirmed Active 33645[facility]xukSaints [facility]3completed with booster. Social History Social History Type Response Smoking Status Never smoker entered on: 11/11/14 Sex Female Patient Care team information Care Team PersonnelName: Devon YOO, Caraa Position: [facility] Physician (General Medicine) Member Role: PCP Address: Address: [address] [place] [address]- Name: Ramon Hess RN Position: [facility] OB RN Member Role: Primary Care Nurse Care Team Related PersonsName: MIHIR PLASCENCIA Address: home [address] [place] [address] Name: KORIN MORENO Address: home [address] [place] [address]
--- OUTSIDE RECORDS SUMMARY | 2022-08-26 11:49 | XMS_ITS | Continuity of Care Document ---
:1996 Author Organization [facility] Address [address] [place] [address]- Care Team Providers Name Role Phone Devon YOO, Asma Primary Care Physician Encounter [facility] Date(s): 02/12/22 - 02/12/[address] [address] Discharge Disposition: A-D/C Walkout Attending Physician: Garett Canales MD Admitting Physician: Garett Canales MD Referring Physician: Garett Canales MD Allergies, Adverse Reactions, Alerts No Known [...] Most recent to oldest [Reference Range]: 1 Weight 83.3 kg (02/12/22 5:59 PM) Oxygen Saturation [94-100 %] 100 % (02/12/22 5:59 PM) Pulse Rate [55-90 bpm] 74 bpm (02/12/22 5:59 PM) Blood Pressure [90-138/55-84 mm Hg] 126/65 mm Hg (02/12/22 5:59 PM) Respiratory Rate [16-30 br/min] 17 br/min (02/12/22 5:59 PM) Temperature [96.8-100.4 DegF] 98.1 DegF (02/12/22 5:59 PM) Blood pressure sites Arm, right (02/12/22 5:59 PM) Temperature Route Oral (02/12/22 5:59 PM) Weight Obtained Via Standing scale (02/12/22 5:59 PM) Social History Social History Type Response Smoking Status Never smoker entered on: 11/11/14 Sex Female
--- OUTSIDE RECORDS SUMMARY | 2022-08-26 11:49 | XMS_ITS | Continuity of Care Document ---
:1996 Author Organization [facility] Address Unavailable , Care Team Providers Name Role Phone Devon YOO, Asma Primary Care Physician Encounter [facility] Date(s): 11/12/21 - 12/12/21 [facility] Allergies, Adverse Reactions, Alerts No Known Allergies Immunizations Given and Recorded Vaccine Date Status Refusal Reason influenza virus vaccine, inactivated 05/06/21 Given influenza virus vaccine, inactivated1 06/16/16 Given tetanus/diphtheria/pertussis, acel(Tdap) 10/20/16 Given 1Early/Late Reason: Med Not Available Medications Maricel 30 mg oral tablet 1 tablet = 30 mg, By Mouth, Once, # 1 tablet, 5 Refills, Soft Stop, 07/16/20 11:30:00 EST, [facility] #[id number], Partial fill upon patient request if the prescription is for a schedule II opioiddrug., 160, cm, 07/16/20 11:03:00 EST, Height, 81... Start Date: 07/16/20 Status: OrderedPrenatal Multivitamins with Folic Acid 1 mg oral tablet 1 tablet, By Mouth, Daily, # 90 tablet, 3 Refills, Maintenance, 11/26/21 8:43:00 EDT, Tablet, [facility][id number], Partial fill upon patient request if the [...]
--- OUTSIDE RECORDS SUMMARY | 2022-08-26 11:49 | XMS_ITS | Continuity of Care Document ---
:1996 Author Organization [facility] ic Address [address] [place] [address]- Care Team Providers Name Role Phone Devon YOO, Asma Primary Care Physician Encounter [facility] Date(s): 07/15/22 - 08/14/[address] [address]- Allergies, Adverse Reactions, Alerts No Known Allergies [...] Confirmed Active Obese class I Confirmed Active 33802[facility]3completed with booster. Social History Social History Type Response Smoking Status Never smoker entered on: 11/11/14 Sex Female Patient Care team information Care Team PersonnelName: Devon YOO, Caraa Position: [facility] Physician (General Medicine) Member Role: PCP Address: Address: [address] [place] [address]- Name: Ramon Hess RN Position: [facility] OB RN Member Role: Primary Care Nurse Care Team Related PersonsName: MIHIR PLASCENCIA Address: home [address] [place] [address] Name: KORIN MORENO Address: home [address] [place] [address]
--- OUTSIDE RECORDS SUMMARY | 2022-08-26 11:49 | XMS_ITS | Continuity of Care Document ---
:1996 Author Organization [facility] ic Address [address] [place] [address]- Care Team Providers Name Role Phone Devon YOO, Asma Primary Care Physician Encounter [facility] [place] Date(s): 07/15/20 - 08/14/[address] [address] Allergies, Adverse Reactions, Alerts Substance Reaction Severity Status NKA Active Immunizations Given and Recorded Vaccine Date Status Refusal Reason tetanus/diphtheria/pertussis, acel(Tdap) 10/20/16 Given influenza virus vaccine, inactivated1 06/16/16 Given 1Early/Late Reason: Med Not Available Medications Maricel 30 mg oral tablet 1 tablet = 30 mg, By Mouth, Once, # 1 tablet, 5 Refills, Soft Stop, 07/16/20 11:30:00 EST, [facility] #[id number], Partial fill upon patient request if the [...]
--- OUTSIDE RECORDS SUMMARY | 2022-08-26 11:49 | XMS_ITS | Continuity of Care Document ---
:1996 Author Organization [facility] Address Unavailable , Care Team Providers Name Role Phone Devon YOO, Asma Primary Care Physician Encounter [facility] Date(s): 01/21/22 - 02/20/22 [facility] Allergies, Adverse Reactions, Alerts No Known Allergies Immunizations Given and Recorded Vaccine Date Status Refusal Reason influenza virus vaccine, inactivated 05/06/21 Given influenza virus vaccine, inactivated1 06/16/16 Given tetanus/diphtheria/pertussis, acel(Tdap) 10/20/16 Given 1Early/Late Reason: Med Not Available Medications Multivitamins with Folic Acid 1 mg oral tablet 1 tablet, By Mouth, Daily, # 90 tablet, 2 Refills, Maintenance, 01/29/22 15:33:00 EDT, Tablet, [facility]/pharmacy #[id number], Partial fill upon patient request if [...] cm, 11/26/21 8:08:... Start Date: 11/26/21 Status: OrderedUnisom 25 mg oral tablet 1 tablet = 25 mg, By Mouth, Daily at bedtime, for 30 days, 15 to 30 minutes before bed, # 30 tablet,1 Refills, Acute 04/18/22 13:02:00 EDT, 08/10/22 13:02:00 EDT, Tablet, [facility]/pharmacy #[id number], Partial fill upon patient request if the prescription is fo... Start Date: 02/17/22 Stop Date: 04/18/22 Status: OrderedVitamin B6 25 mg oral tablet 1 tablet = 25 mg, By Mouth, 3 times a day, for 30 days, # 90 tablet, 1 Refills, Acute 04/18/22 13:02:00 EDT, 02/17/22 13:02:00 EDT, [facility]/pharmacy #[id number], Partial fill upon patient request if [...]
--- OUTSIDE RECORDS SUMMARY | 2022-08-26 11:50 | XMS_ITS | Continuity of Care Document ---
:1996 Author Organization [facility] ic Address [address] [place] [address]- Care Team Providers Name Role Phone Devon YOO, Asma Primary Care Physician [place] [facility] [place](s): 11/26/21 - 12/26/[address] [address]- Attending Physician: Zia Schaffer Admitting Physician: Zia Schaffer Referring Physician: AdmtrZia Allergies, Adverse Reactions, Alerts No Known Allergies Immunizations Given and Recorded Vaccine Date Status Refusal Reason influenza virus vaccine, inactivated 05/06/21 Given influenza virus vaccine, inactivated1 06/16/16 Given tetanus/diphtheria/pertussis, acel(Tdap) 10/20/16 Given 1Early/Late Reason: Med Not Available Medications Mariecl 30 mg oral tablet 1 tablet = 30 mg, By Mouth, Once, # 1 tablet, 5 Refills, Soft Stop, 07/16/20 11:30:00 EST, [facility] #[id number], Partial fill upon patient request if the prescription is for a schedule II opioiddrug., 160, cm, 07/16/20 11:03:00 EST, Height, 81... Start Date: 07/16/20 Status: OrderedPrenatal Multivitamins with Folic Acid 1 mg oral tablet 1 tablet, By Mouth, Daily, # 90 tablet, 3 Refills, Maintenance, 11/26/21 8:43:00 EDT, Tablet, [id number], Partial fill upon patient request if the [...]
[2022-08-26 11:55] LABS: Alanine Aminotransferase 13 U/L (0-31); Alkaline Phosphatase 70 U/L (39-117); Anion Gap 14 (12-20); Aspartate Amino Transferase 18 U/L (5-31); Bilirubin Direct < 0.2 mg/dL (0.0-0.5); Bilirubin Total 0.4 mg/dL (0.0-1.0); Blood Urea Nitrogen 10 mg/dL (9-16); Calcium 9.2 mg/dL (8.4-10.2); Carbon Dioxide 23 mmol/L (22-29); Chloride 109 mmol/L (96-108); Creatinine Clr Calc Pharmacy 106.4; Estimated Glomerular Filt Rate > 60; Glucose Random 83 mg/dL (60-115); Lipase 15 U/L (8-78); Potassium 4.7 mmol/L (3.3-5.1); Sodium 141 mmol/L (135-145); Total Protein 6.7 g/dL (6.5-8.0)
--- NOTE | 2022-08-26 12:00 | ED_ITS ---
HPI - Medical Clearance General Chief complaint: Body Fluid Exposure <NUVIA Hillman - Last Filed: 08/26/22 12:10> Stated complaint: stuck with needle at work <NUVIA Hillman - Last Filed: 08/26/22 12:10> Time Seen by Provider: 08/26/22 11:31 <NUVIA Hillman - Last Filed: 08/26/22 12:10> Source: patient <NUVIA Hillman - Last Filed: 08/26/22 12:10> Mode of arrival: ambulatory <NUVIA Hillman - Last Filed: 08/26/22 12:10> History of Present Illness HPI Narrative: 27-year-old female with a past medical history B12 deficiency, chronic headaches, iron deficiency anemia, presenting to ED s/p accidental needlestick to right thumb 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 Admits she stuck patient and then patient moved and she accidentally stuck herself. Admits did draw blood, expressed blood from area and washed area immediately after incident. Patient reports she is up-to-date on her vaccinations. Unknown medical history of patient she was working on. Denies injury to other area. <NUVIA Hillman - Last Filed: 08/26/22 12:10> MD complaint: medical clearance requested <NUVIA Hillman - Last Filed: 08/26/22 12:10> Onset (ago): minute(s) <NUVIA Hillman - Last Filed: 08/26/22 12:10> Related Information Home medications: Home Medications Medication Instructions Recorded Confirmed albuterol sulfate 90 mcg/actuation 1 puff PO Q4H PRN Shortness Of 05/13/20 08/24/22 aerosol inhaler Breath acetaminophen 500 mg tablet 1,000 mg PO Q6H PRN 08/24/22 08/24/22 (Tylenol Extra Strength) Previous Rx's Medication Instructions Recorded amitriptyline 10 mg tablet 10 mg PO BEDTIME 30 days #30 tabs 08/24/22 naproxen 500 mg tablet 500 mg PO ONCE 30 days #10 tabs 08/24/22 sumatriptan succinate 50 mg tablet 50 mg PO ONCE PRN migraine 08/24/22 headache 30 days #10 tabs <NUVIA Hillman - Last Filed: 08/26/22 12:10> Allergies/Adverse reactions: Allergies Allergy/AdvReac Type Severity Reaction Status Date / Time No Known Allergies Allergy Verified 08/24/22 13:34 [No Known Allergies*] <NUVIA Hillman - Last Filed: 08/26/22 12:10> Review of Systems Review of Systems: Constitutional: No Fever, No Chills ENT/Mouth: No Ear Pain, No Nasal Congestion, No sore throat, No Rhinorrhea, No Swallowing Difficulty Cardiovascular: No Chest Pain, No SOB Respiratory: No Cough, No Sputum Gastrointestinal: No Nausea, No Vomiting, No Abdominal pain Musculoskeletal: No joint pain, No Myalgias, No Joint Swelling Skin: +Skin Lesions, No rash Neuro: No Weakness, No Numbness, No Paresthesias <NUVIA Hillman Last Filed: 08/26/22 12:10> Yes all other systems are reviewed and are negative <NUVIA Hillman Last Filed: 08/26/22 12:10> Constitutional: Constitutional: Reports as per HPI <NUVIA Hillman Last Filed: 08/26/22 12:10> [facility] Past Medical History Attestation statement: The following information was validated with the patient. <NUVIA Hillman Last Filed: 08/26/22 12:10> Medical History: Medical History B12 deficiency Chronic headaches Fatigue Iron deficiency Swelling of lower extremity <NUVIA Hillman Last Filed: 08/26/22 12:10> Surgical History: Surgical History No pertinent past surgical history <NUVIA Hillman Last Filed: 08/26/22 12:10> Family History Family History: Family History Father No problems noted. Mother No problems noted. Sister No problems noted. <NUVIA Hillman Last Filed: 08/26/22 12:10> Social History Social History: Social History Housing: Apartment Patient Tobacco Use Status: Never used Tobacco Advance Directives: No Advance Directives Information Provided: No Current occupational status: employed Cognitive needs: No Hearing needs: No Vision needs: No <NUVIA Hillman - Last Filed: 08/26/22 12:10> Physical Exam Vital Signs: Vital Signs: Last Vital Signs Temp 98 F 08/26/22 11:13 Pulse 74 08/26/22 11:13 Resp 18 08/26/22 11:13 BP 136/67 08/26/22 11:13 Pulse Ox 98 08/26/22 11:13 O2 Del Method 08/26/22 11:13 BMI result Body Mass Index 31.8 <NUVIA Hillman - Last Filed: 08/26/22 12:10> Vital Signs: Last Vital Signs Temp 98 F 08/26/22 11:13 Pulse 74 08/26/22 11:13 Resp 18 08/26/22 11:13 BP 136/67 08/26/22 11:13 Pulse Ox 98 08/26/22 11:13 O2 Del Method 08/26/22 11:13 BMI result Body Mass Index 31.8 <Dave Liang MD - Last Filed: 09/02/22 16:23> Const: General: cooperative, healthy appearing and no acute distress <NUVIA Hillman - Last Filed: 08/26/22 12:10> Orientation/consciousness: patient oriented x3 <NUVIA Hillman - Last Filed: 08/26/22 12:10> Limitations: no limitations <NUVIA Hillman - Last Filed: 08/26/22 12:10> HEENT: Head: Yes normal to inspection and Yes atraumatic <NUVIA Hillman - Last Filed: 08/26/22 12:10> Ears: hearing grossly normal bilaterally <NUVIA Hillman - Last Filed: 08/26/22 12:10> General nose exam: Normal external nose present <NUVIA Hillman - Last Filed: 08/26/22 12:10> Face and sinus: Yes normal facial exam <NUVIA Hillman - Last Filed: 08/26/22 12:10> Eyes: General: appearance normal, both eyes and all related structures <NUVIA Hillman - Last Filed: 08/26/22 12:10> EOM: EOMs intact bilaterally <NUVIA Hillman - Last Filed: 08/26/22 12:10> Neck: Neck: Yes normal visual inspection and Yes no meningeal signs <NUVIA Hillman - Last Filed: 08/26/22 12:10> Resp: Effort & Inspection: normal respiratory effort and no respiratory distress <NUVIA Hillman - Last Filed: 08/26/22 12:10> Cardio: Rate: regular rate <NUVIA Hillman - Last Filed: 08/26/22 12:10> Skin: Other: + small needlestick to right thumb. No active bleeding. No expressible blood. No cellulitis/erythema or pus <NUVIA Hillman - Last Filed: 08/26/22 12:10> Rashes: no rashes <NUVIA Hillman - Last Filed: 08/26/22 12:10> Neuro: General: patient oriented x3, tone normal and no meningeal signs <NUVIA Hillman - Last Filed: 08/26/22 12:10> Gait exam (Neuro): Normal gait present <NUVIA Hillman - Last Filed: 08/26/22 12:10> Extrem: General: Yes normal to inspection <NUVIA Hillman - Last Filed: 08/26/22 12:10> Course Course Course Narrative: -labs unremarkable. HIV/hepatitis panel pending Results discussed with patient including worrisome signs and symptoms and strict return precautions, and when to return to the emergency department. They verbalized understanding and feel safe for discharge at this time. 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 On exam vital signs stable, NAD, nontoxic appearing, physical exam as above. Patient is up-to-date on vaccinations. Discussed with patient initiating PEP, discussed indications and potential side effects, patient would like to refrain starting medication at this time, all questions were answered. Plan: Post exposure labs, Work connection follow-up Please refer to course for remaining clinical decision making, interpretation of labs/imaging results, and discussions with consultants and/or family members. <NUVIA Hillman - Last Filed: 08/26/22 12:10> Differential Diagnosis Differential Diagnoses: The differential diagnosis associated with the presentation includes <NUVIA Hillman - Last Filed: 08/26/22 12:10> as above <NUVIA Hillman - Last Filed: 08/26/22 12:10> Lab Data MDM Lab Attestation statement: I reviewed the patient's lab results. <NUVIA Hillman - Last Filed: 08/26/22 12:10> Result Diagrams: 08/26/22 11:21 08/26/22 11:21 <NUVIA Hillman - Last Filed: 08/26/22 12:10> Labs: Lab Results 08/26/22 08/26/22 08/26/22 Range/Units 11:21 11:21 11:21 WBC 7.3 (4.8-10.8) X10*3/uL RBC 5.23 (4.20-5.50) X10*6/uL Hgb 13.3 (12.0-16.0) g/dl Hct 42.4 (37.0-47.0) % MCV 81.1 (80.0-98.0) fL MCH 25.4 L (27.0-33.0) pg MCHC 31.4 (31.0-35.0) g/dl RDW 14.2 (11.0-16.0) % Plt Count 357 (160-400) X10*3/uL MPV 9.7 (9.4-12.3) fL Immature Gran % (Auto) 0.8 H (0.0-0.4) % Neut % (Auto) 57.4 (45-73) % Lymph % (Auto) 28.7 (20-40) % [place] % (Auto) 11.1 H (2-11) % Eos % (Auto) 0.8 (0-4) % Baso % (Auto) 1.2 (0-2) % Lymph # (Auto) 2.1 (1.2-4.9) X10*3/uL [place] # (Auto) 0.8 (0.1-1.2) X10*3/uL Eos # (Auto) 0.1 (0.0-0.4) X10*3/uL Baso # (Auto) 0.1 (0.0-0.2) X10*3/uL Abs Immat Gran (auto) 0.06 H (0.00-0.03) X10*3/uL Absolute Neuts (auto) 4.2 (2.0-8.3) x10*3/uL Absolute Nucleated RBC 0.000 (0.0-0.012) X10*3/uL Nucleated RBC % (auto) 0.0 (0.0-0.2) /100WBC Sodium 141 (135-145) mmol/L Potassium 4.7 (3.3-5.1) mmol/L Chloride 109 H (96-108) mmol/L Carbon Dioxide 23 (22-29) mmol/L Anion Gap 14 (12-20) BUN 10 (9-16) mg/dL Creatinine 0.81 (0.5-1.4) mg/dL Estim Creat Clear Calc 106.4 Estimated GFR > 60 Random Glucose 83 (60-115) mg/dL Calcium 9.2 (8.4-10.2) mg/dL Total Bilirubin 0.4 (0.0-1.0) mg/dL Direct Bilirubin < 0.2 (0.0-0.5) mg/dL AST 18 (5-31) U/L ALT 13 (0-31) U/L Alkaline Phosphatase 70 (39-117) U/L Total Protein 6.7 (6.5-8.0) g/dL Albumin 4.0 (3.5-5.0) g/dL Lipase 15 (8-78) U/L Hep Bs Antigen Negative (Negative) Hep Bs Antibody REACTIVE (Nonreactive) Hep B Core Total Ab Nonreactive (Nonreactive) Hepatitis C Ab (EIA) Nonreactive (Nonreactive) HIV 1&2 Ab/P24 Ag 4thGn Nonreactive (Nonreactive) <NUVIA Hillman - Last Filed: 08/26/22 12:10> Lab Results 08/26/22 08/26/22 08/26/22 Range/Units 11:21 11:21 11:21 WBC 7.3 (4.8-10.8) X10*3/uL RBC 5.23 (4.20-5.50) X10*6/uL Hgb 13.3 (12.0-16.0) g/dl Hct 42.4 (37.0-47.0) % MCV 81.1 (80.0-98.0) fL MCH 25.4 L (27.0-33.0) pg MCHC 31.4 (31.0-35.0) g/dl RDW 14.2 (11.0-16.0) % Plt Count 357 (160-400) X10*3/uL MPV 9.7 (9.4-12.3) fL Immature Gran % (Auto) 0.8 H (0.0-0.4) % Neut % (Auto) 57.4 (45-73) % Lymph % (Auto) 28.7 (20-40) % [place] % (Auto) 11.1 H (2-11) % Eos % (Auto) 0.8 (0-4) % Baso % (Auto) 1.2 (0-2) % Lymph # (Auto) 2.1 (1.2-4.9) X10*3/uL [place] # (Auto) 0.8 (0.1-1.2) X10*3/uL Eos # (Auto) 0.1 (0.0-0.4) X10*3/uL Baso # (Auto) 0.1 (0.0-0.2) X10*3/uL Abs Immat Gran (auto) 0.06 H (0.00-0.03) X10*3/uL Absolute Neuts (auto) 4.2 (2.0-8.3) x10*3/uL Absolute Nucleated RBC 0.000 (0.0-0.012) X10*3/uL Nucleated RBC % (auto) 0.0 (0.0-0.2) /100WBC Sodium 141 (135-145) mmol/L Potassium 4.7 (3.3-5.1) mmol/L Chloride 109 H (96-108) mmol/L Carbon Dioxide 23 (22-29) mmol/L Anion Gap 14 (12-20) BUN 10 (9-16) mg/dL Creatinine 0.81 (0.5-1.4) mg/dL Estim Creat Clear Calc 106.4 Estimated GFR > 60 Random Glucose 83 (60-115) mg/dL Calcium 9.2 (8.4-10.2) mg/dL Total Bilirubin 0.4 (0.0-1.0) mg/dL Direct Bilirubin < 0.2 (0.0-0.5) mg/dL AST 18 (5-31) U/L ALT 13 (0-31) U/L Alkaline Phosphatase 70 (39-117) U/L Total Protein 6.7 (6.5-8.0) g/dL Albumin 4.0 (3.5-5.0) g/dL Lipase 15 (8-78) U/L Hep Bs Antigen Negative (Negative) Hep Bs Antibody REACTIVE (Nonreactive) Hep B Core Total Ab Nonreactive (Nonreactive) Hepatitis C Ab (EIA) Nonreactive (Nonreactive) HIV 1&2 Ab/P24 Ag 4thGn Nonreactive (Nonreactive) <Dave Liang MD - Last Filed: 09/02/22 16:23> Prescription Management I considered prescription management with: Antiviral <NUVIA Hillman - Last Filed: 08/26/22 12:10> Attestation Attending Attestation: I reviewed DOCKING PILOT/PA/Resident note, assessment and plan. I agree with the documentation, assessment and plan unless otherwise stated. <Dave Liang MD - Last Filed: 09/02/22 16:23> Discharge Plan Discharge Clinical Impression: Exposure to blood or body fluid, Accidental hypodermic needlestick injury <NUVIA Hillman - Last Filed: 08/26/22 12:10> Patient Disposition: Home, Self-Care <NUVIA Hillman - Last Filed: 08/26/22 12:10> Instructions: Needle Stick Injuries (ED) <NUVIA Hillman - Last Filed: 08/26/22 12:10> Additional Instructions: Your levels were drawn today for hepatitis and HIV. You will be contacted for positive results Please try to find out more information about the patient which you were stuck If you do choose to change her mind and start taking the PEP you need started within 72 hours PEP Must Be Started Within 72 Hours of Possible Exposure to HIV Talk right away (within 72 hours) to your health care provider, an emergency room doctor, or an urgent care provider about PEP if you think you?ve recently been exposed to HIV: * during sex (for example, if the condom broke), * through sharing needles, syringes, or other equipment to inject drugs (for example, cookers), or * if you?ve been sexually assaulted. The sooner you start PEP, the better. Every hour counts. If you?re prescribed PEP, you?ll need to take it daily for 28 days. PEP is for Emergency Situations * PEP is given after a possible exposure to HIV. * PEP is not a substitute for regular use of other?HIV prevention https://www.cdc.gov/hiv/basics/prevention.html . * PEP is not the right choice for people who may be exposed to HIV frequently. * If you are at ongoing risk for HIV, such as through repeated exposures to HIV, talk to your health care provider about?PrEP https:/ /www.cdc.gov/hiv/basics/prep.html ?(pre-exposure prophylaxis). <NUVIA Hillman - Last Filed: 08/26/22 12:10> Prescriptions: No Action albuterol sulfate 90 mcg/actuation HFA aerosol inhaler 1 puff PO Q4H PRN (Reason: Shortness Of Breath) acetaminophen [Tylenol Extra Strength] 500 mg tablet 1,000 mg PO Q6H PRN amitriptyline 10 mg tablet 10 mg PO BEDTIME 30 Days Qty: 30 0RF sumatriptan succinate 50 mg tablet 50 mg PO ONCE PRN (Reason: migraine headache) 30 Days Qty: 10 0RF Rx Instructions: do not exceed 4 doses per 24 hrs naproxen 500 mg tablet 500 mg PO ONCE 30 Days Qty: 10 0RF <NUVIA Hillman - Last Filed: 08/26/22 12:10> Referrals: [facility] [Outside] <NUVIA Hillman Last Filed: 08/26/22 12:10> Interventions: ED Discharge Assessment Last Done: 08/26/22 12:16 <NUVIA Hillman Last Filed: 08/26/22 12:10> Discharge Date/Time: 08/26/22 12:18 <NUVIA Hillman - Last Filed: 08/26/22 12:10>
[2022-08-27 08:57] LABS: HBc Num1 0.11 S/CO (0.00-0.79); HBsAGNum1 0.26 S/CO (0.00-0.99); HIV AB/AG Nonreactive (Nonreactive); HIV Num 1 0.08 S/CO (0.00-0.99); Hepatitis B Core Antibody Nonreactive (Nonreactive); Hepatitis B Surface Antigen Negative (Negative); ~HepC Num1 0.08 S/CO (0.00-0.79); ~Hepatitis B Surface Antibody REACTIVE (Nonreactive); ~Hepatitis C Antibody Nonreactive (Nonreactive)
== END 2022-08-26 12:18 | disposition home or self-care (01) ==
PROVIDERS: Physician Assistant; Physician Assistant Medical; Emergency Provider Emergency Medicine; PCP Internal Medicine
DX: Z20.828 Contact with and (suspected) exposure to other viral communicable diseases (principal); Z77.21 Contact with and (suspected) exposure to potentially hazardous body fluids; Z79.899 Other long term (current) drug therapy
CPT/HCPCS: 36415; 80048; 80076; 83690; 85025; 86704; 86706; 86803; 87340; 87389; 99282; 99283

== ENCOUNTER 2022-12-24 13:10 | Outpatient (REF) | payer OTHER, SELFPAY ==
[2022-12-24 14:05] LABS: MANUAL DIFF FLAG NO
[2022-12-24 14:09] LABS: Basophils Absolute Auto 0.1 X10*3/uL (0.0-0.2); Basophils Percent Auto 0.5 % (0-2); Eosinophils Absolute Auto 0.1 X10*3/uL (0.0-0.4); Eosinophils Percent Auto 1.3 % (0-4); Hematocrit 43.3 % (37.0-47.0); Hemoglobin 13.7 g/dl (12.0-16.0); Imm Gran Abs Auto 0.04 X10*3/uL (0.00-0.03); Imm Gran Pct Auto 0.4 % (0.0-0.4); Lymphocytes Absolute Auto 1.5 X10*3/uL (1.2-4.9); Lymphocytes Percent Auto 13.9 % (20-40); Mean Corpuscular HGB Conc 31.6 g/dl (31.0-35.0); Mean Corpuscular Hemoglobin 26.2 pg (27.0-33.0); Mean Corpuscular Volume 82.8 fL (80.0-98.0); Mean Platelet Volume 10.5 fL (9.4-12.3); Monocytes Absolute Auto 0.8 X10*3/uL (0.1-1.2); Monocytes Percent Auto 7.4 % (2-11); Neutrophils Absolute Auto 8.1 x10*3/uL (2.0-8.3); Neutrophils Percent Auto 76.5 % (45-73); Platelet Count 415 X10*3/uL (160-400); Red Blood Count 5.23 X10*6/uL (4.20-5.50); Red Cell Distribution Width 14.4 % (11.0-16.0); White Blood Count 10.6 X10*3/uL (4.8-10.8)
[2022-12-24 19:04] LABS: Alanine Aminotransferase 10 U/L (0-31); Albumin Level 4.4 g/dL (3.5-5.0); Alkaline Phosphatase 59 U/L (39-117); Anion Gap 16 (12-20); Aspartate Amino Transferase 14 U/L (5-31); Bilirubin Total 0.4 mg/dL (0.0-1.0); Blood Urea Nitrogen 13 mg/dL (9-16); Calcium 9.8 mg/dL (8.4-10.2); Carbon Dioxide 22 mmol/L (22-29); Chloride 107 mmol/L (96-108); Estimated Glomerular Filt Rate > 60; Glucose Random 90 mg/dL (60-115); Sodium 141 mmol/L (135-145); Total Protein 7.5 g/dL (6.5-8.0)
[2022-12-24 19:12] LABS: Ferritin 34 ng/mL (10-122); TSH reflex Free T4 0.81 uIU/mL (0.32-4.0)
[2022-12-24 19:18] LABS: Vitamin B12 238 pg/mL (200-900)
[2022-12-30 12:52] LABS: Vitamin D 25-OH, D2 <4 ng/mL; Vitamin D 25-OH, D3 54 ng/mL; Vitamin D 25-OH, Total 54 ng/mL (30-100)
== END 2022-12-24 13:11 | disposition home or self-care (01) ==
LOC: HO.HMGCLDS 13:10
PROVIDERS: PCP Internal Medicine; Visit Provider Internal Medicine
DX: E53.8 Deficiency of other specified B group vitamins (principal); E55.9 Vitamin D deficiency, unspecified; R42 Dizziness and giddiness; E61.1 Iron deficiency
CPT/HCPCS: 36415; 80053; 82306; 82607; 82728; 84443; 85025

== ENCOUNTER 2023-02-28 09:37 | Outpatient (AMB) | payer OTHER, SELFPAY ==
--- NOTE | 2023-02-28 10:36 | MHC.OFFWIV ---
Intake Vital Signs 02/28/23 10:37 Weight 189 lb BP 122/78 Blood Pressure Location Rt brachial Position Sitting Pulse 121 H Pulse Source Pulse Oximeter Temp 97.9 F Temp Source Temporal Artery Scan Pulse Oximetry (%) 97 Oxygen Delivery Method Room Air Intake Visit Reasons: EP Cough/chest tightness due to (masked) Intake Note: Patient here for cough that has been present for about 2 weeks, cough is not getting any better, sob if over exerts herself she also mentioned that she is having chest tightness mainly on left side. she was prescribed amox on which she feels is not helping. Patient Tobacco Use Status: Never used Tobacco Allergies No Known Allergies [No Known Allergies*] Allergy (Verified 02/28/23 10:39) Do you need a note to return to daycare/school/sports/work: No HPI HPI Comments History of Present Illness Details 27-year-old female presents to the office for a sick visit. Patient is complaining of cough and wheezing for the past 2 weeks. She has been taking amoxicillin and the inhalers with minimal relief. [facility] Medical History B12 deficiency Chronic headaches Fatigue Iron deficiency Swelling of lower extremity Surgical History No pertinent past surgical history Family History Father No problems noted. Mother No problems noted. Sister No problems noted. Social History Housing: Apartment Patient Tobacco Use Status: Never used Tobacco e-Cigarette/Vaping Use: Never Used Current occupational status: employed Cognitive needs: No Hearing needs: No Vision needs: No Physical Exam Vital Signs: Last Vital Signs Temp 97.9 F 02/28/23 10:37 Pulse 121 H 02/28/23 10:37 BP 122/78 02/28/23 10:37 Pulse Ox 97 02/28/23 10:37 Oxygen Delivery Method Room Air 02/28/23 10:37 Const General: cooperative and healthy appearing Nutritional Appearance: well nourished Orientation/consciousness: patient oriented x3 Limitations: no limitations HEENT Head: Yes normal to inspection Eyes General: appearance normal, both eyes and all related structures Neck Neck: Yes normal visual inspection Chest Chest palpation & inspection: normal palpation of entire chest wall Resp Effort & Inspection: normal respiratory effort Neuro General: patient oriented x3 Office Procedures Nebulizer Treatment Nebulizer Treatment 08709-[id number]/[id number] RX initial, or Nebulizer Subsequent Treatment Office Meds albuterol sulfate Performing Provider: Riccardo Morales MD Administered by: Luann Uribe RN on 02/28/23 11:15 Dose Route Admin Location Lot Number Expiration Date NDC Recordings Librarian 2.5 mg inhalation 10 [id number] 08/09/23 2727-2560-59 [place] [facility] Comments: Instructed pt on proper use of nebulizer device. Assessment & Plan Assessment & Plan (1) Bronchitis: Code(s): J40 - Bronchitis, not specified as acute or chronic Plan: X-ray was reviewed by me personally. Azithromycin, prednisone was called in. Patient was encouraged to continue on the inhalers. Orders: Orders XR chest 2V Today J40 - Bronchitis, not specified as acute or chronic AMB Nebulizer Treatment Today J40 - Bronchitis, not specified as acute or chronic Coding Level of Care Code Est Pt Level 4 (80749) Diagnoses Bronchitis J40 CPT Codes Nebulizer Treatment - Nebulizer Treatment, initial or subsequent: 27605-[id number]/[id number] RX initial, or Nebulizer Subsequent Treatment ([id number])
[2023-02-28 10:37] VITALS: BP 122/78; PULSE 121; TEMP 36.6; O2SAT 97
== END 2023-02-28 12:46 | disposition home or self-care (01) ==
PROVIDERS: PCP Internal Medicine; Visit Provider Internal Medicine
DX: J40 Bronchitis, not specified as acute or chronic (principal)
CPT/HCPCS: 94640; 99214; J7613

== ENCOUNTER 2023-02-28 11:24 | Outpatient (REF) | payer OTHER, SELFPAY ==
--- NOTE | ~2023-02-28 | XR_ITS ---
EXAMINATION: XR CHEST CLINICAL INFORMATION: Bronchitis. COMPARISON: 09/28/2019 chest radiographs. TECHNIQUE: 2 views of the chest were obtained. FINDINGS: No significant abnormality is noted involving the heart, lungs, mediastinum, bony thorax or soft tissues. XR/XR chest 2V IMPRESSION: No acute cardiopulmonary process.
== END 2023-02-28 11:25 | disposition home or self-care (01) ==
LOC: HO.HMGCLDS 11:24
PROVIDERS: PCP Internal Medicine; Visit Provider Internal Medicine
DX: J40 Bronchitis, not specified as acute or chronic (principal)
CPT/HCPCS: 71046

== ENCOUNTER 2023-04-27 15:31 | Outpatient (AMB) | payer OTHER, SELFPAY ==
--- NOTE | 2023-04-27 15:33 | MHC.PC.OV ---
Vital Signs 04/27/23 15:34 Height 5 ft 3 in Weight 189 lb 6 oz BMI 33.5 BP 126/84 Blood Pressure Location Lt brachial Position Sitting Pulse 72 Pulse Source Pulse Oximeter Pulse Oximetry (%) 100 Oxygen Delivery Method Room Air Intake Visit Reasons: Sand Fleas Allergies No Known Allergies [No Known Allergies*] Allergy (Verified 04/27/23 15:33) Medication List - Last Reconciled 04/27/23 by Rober Osorio MD acetaminophen (Tylenol Extra Strength) 1,000 mg PO Q6H PRN albuterol sulfate 90 mcg/actuation 1 puff PO Q4H PRN albuterol sulfate 90 mcg/actuation 1 inh inhalation QID PRN 30 days cyanocobalamin (vitamin B-12) 1,000 mcg PO DAILY 90 days escitalopram oxalate (Lexapro) 10 mg PO DAILY meclizine 25 mg PO TID PRN 30 days ondansetron HCl 4 mg PO Q8H PRN 7 days prednisone 60 mg (3 x 20 mg) PO DAILY Tobacco use date assessed: 04/27/23 Dental Screening Dental Screen Date: 04/27/23 Did you have a dental visit in the last 12 months?: Yes Did you have a dental problem in the last 6 months where you did not have access to dental care?: No Was dental information given to patient?: Patient has dentist HPI [place] Fleas HPI Details Patient is 27-year-old female who came back from [place] couple of days ago , she says that she was in the beach [place] times laying on a sent She started noticing a little bumps appearing on her feet and then spreading all over her body. There is no fever chills no respiratory symptoms Patient says that the bumps are very pruritic. On examination she has papular rash more so lower extremity but also on upper extremity and back. I am prescribing her prednisone 50 mg once a day for 5 days and hydroxyzine 25 mg up to 3 times a day Patient is to return in 10 days for follow-up [facility] Medical History Swelling of lower extremity Chronic headaches B12 deficiency Iron deficiency Fatigue Surgical History No pertinent past surgical history Family History Father No problems noted. Mother No problems noted. Sister No problems noted. Social History Housing: Apartment Patient Tobacco Use Status: Never used Tobacco e-Cigarette/Vaping Use: Never Used Current occupational status: employed Cognitive needs: No Hearing needs: No Vision needs: No Questionnaire Thrive Questionnaire Date Thrive assessed: 08/24/22 AUDIT C Alcohol Use Questionnaire (AUDIT-C) 1. How often do you have a drink containing alcohol?: Never 3. How often do you have six or more drinks on one occasion?: Never Total Score: 0 Score Reviewed/Action Taken: Yes THEE-7 AMB Questionnaire THEE-7 Date THEE - 7 assessed: 08/24/22 Source: Developed by Drs. Tobias Nova, Mary Muhammad, Ti Hunter and colleagues, with an educational delonte from [employer]. Review of Systems Const Denies chills and Denies fever(s) ENT Denies epistaxis and Denies nasal discharge Card Denies chest pain Resp Denies chest congestion, Denies cough and Denies hemoptysis GI Denies diarrhea and Denies nausea Neuro Reports no additional complaints Psych Reports no additional complaints Endo Reports no additional complaints Physical exam (Primary Care) Vital Signs: Last Vital Signs Pulse 72 04/27/23 15:34 BP 126/84 04/27/23 15:34 Pulse Ox 100 04/27/23 15:34 Oxygen Delivery Method Room Air 04/27/23 15:34 BMI result Body Mass Index 33.5 Tobacco/Smoking Status: Tobacco use Status Tobacco use date assessed 04/27/23 04/27/23 15:34 Patient Tobacco Use Status Never used Tobacco 04/27/23 15:34 e-Cigarette/Vaping Use Never Used 04/27/23 15:34 Thrive Assessment: Date of Thrive Assessment Date Thrive assessed 08/24/22 04/27/23 15:34 Const General: cooperative, comfortable and no acute distress Orientation/consciousness: patient oriented x3 HENMT Head: Yes normocephalic Eyes General: appearance normal, both eyes and all related structures Neck Neck: Yes supple Resp Effort & Inspection: normal respiratory effort, no cough and no stridor Cardio Rhythm: regular rhythm Heart sounds: S1 normal heart sound present and S2 normal heart sound present Skin Other: Papular rash more so lower extremity but also back and arms General skin exam: turgor normal Neuro General: patient oriented x3, tone normal and moves all extremities Extrem Right lower extremity: no edema Left lower extremity: no edema Assessment and Plan Assessment & Plan (1) Papular rash, generalized: Code(s): R21 - Rash and other nonspecific skin eruption Plan Patient is 27-year-old female who came back from [place] couple of days ago , she says that she was in the beach multiple times laying on a sent She started noticing a little bumps appearing on her feet and then spreading all over her body. There is no fever chills no respiratory symptoms Patient says that the bumps are very pruritic. On examination she has papular rash more so lower extremity but also on upper extremity and back. I am prescribing her prednisone 50 mg once a day for 5 days and hydroxyzine 25 mg up to 3 times a day Patient is to return in 10 days for follow-up Medications: New hydroxyzine HCl 25 mg PO TID 10 days PRN 30 tabs 0RF itching Changed From prednisone 60 mg (3 x 20 mg) PO DAILY 9 tabs 0RF To prednisone 50 mg PO DAILY 5 days 5 tabs 0RF Coding Level of Care Code Est Pt Level 3 (50157) Diagnoses Papular rash, generalized R21
[2023-04-27 15:34] VITALS: BP 126/84; PULSE 72; O2SAT 100; BMI 33.5
== END 2023-04-27 16:08 | disposition home or self-care (01) ==
PROVIDERS: PCP Internal Medicine; Visit Provider Internal Medicine
DX: R21 Rash and other nonspecific skin eruption (principal)
CPT/HCPCS: 99213

== ENCOUNTER 2023-09-13 11:14 | Outpatient (AMB) | payer OTHER, SELFPAY ==
[2023-09-13 12:20] VITALS: BP 120/78; PULSE 83; TEMP 36.6; O2SAT 99; BMI 35.1
--- NOTE | 2023-09-13 12:20 | MHC.OFFWIV ---
Intake Vital Signs 09/13/23 12:20 Height 5 ft 3 in Weight 198 lb BMI 35.1 BP 120/78 Blood Pressure Location Lt brachial Position Sitting Pulse 83 Pulse Source Pulse Oximeter Temp 97.8 F Temp Source Temporal Artery Scan Pulse Oximetry (%) 99 Oxygen Delivery Method Room Air Intake Visit Reasons: EP cough fever sore throat [phone] Intake Note: pt is here today for cough fever sore throat started june Patient Tobacco Use Status: Never used Tobacco Allergies No Known Allergies [No Known Allergies*] Allergy (Verified 09/13/23 12:21) Do you need a note to return to daycare/school/sports/work: No HPI EP cough fever sore throat [phone] HPI Details Patient presents for a sick visit. Reporting symptoms of sinus congestion, sore throat and difficulty swallowing. Low-grade fever. No family member is sick. No recent travel. Patient reports symptoms of malaise and fatigue. [facility] Medical History Swelling of lower extremity Chronic headaches B12 deficiency Iron deficiency Fatigue Surgical History No pertinent past surgical history Family History Father No problems noted. Mother No problems noted. Sister No problems noted. Social History Housing: Apartment Patient Tobacco Use Status: Never used Tobacco e-Cigarette/Vaping Use: Never Used Current occupational status: employed Cognitive needs: No Hearing needs: No Vision needs: No Physical Exam Vital Signs: Last Vital Signs Temp 97.8 F 09/13/23 12:20 Pulse 83 09/13/23 12:20 BP 120/78 09/13/23 12:20 Pulse Ox 99 09/13/23 12:20 Oxygen Delivery Method Room Air 09/13/23 12:20 BMI result Body Mass Index 35.1 Const General: cooperative and healthy appearing Nutritional Appearance: well nourished Orientation/consciousness: patient oriented x3 Limitations: no limitations HEENT Head: Yes normal to inspection Eyes General: appearance normal, both eyes and all related structures Neck Neck: Yes normal visual inspection Chest Chest palpation & inspection: normal palpation of entire chest wall Resp Effort & Inspection: normal respiratory effort Neuro General: patient oriented x3 Results AMB Rapid Strep AMB Rapid Strep Negative Last Edit by Anne Parks MA on 09/13/23 12:42 Results Reviewed Results Reviewed: Laboratory Last Values Strep Scn [facility] Negative 09/13/23 12:41 Assessment & Plan Assessment & Plan (1) Upper respiratory tract infection: Code(s): J06.9 - Acute upper respiratory infection, unspecified Plan: Antibiotics ordered. Increase fluid intake. Tylenol for aches and pains. If symptoms worsen, follow-up here for a recheck. Medications: New azithromycin (Zithromax) take 500 mg today (day 1), then 250 mg for 4 days (days 2-5) PO 6 tabs 0RF Coding Level of Care Code Est Pt Level 3 (14715) Diagnoses Upper respiratory tract infection J06.9
== END 2023-09-13 13:46 | disposition home or self-care (01) ==
PROVIDERS: PCP Internal Medicine; Visit Provider Internal Medicine
DX: J06.9 Acute upper respiratory infection, unspecified (principal)
CPT/HCPCS: 99213

== ENCOUNTER 2023-12-08 07:35 | Outpatient (AMB) | payer OTHER, SELFPAY ==
--- NOTE | 2023-12-08 09:19 | A.OFFPC_ITS ---
Intake Visit Reasons: Discuss POTS~ [phone] Allergies No Known Allergies [No Known Allergies*] Allergy (Verified 12/08/23 09:20) Medication List - Last Reconciled 12/08/23 by Rober Osorio MD acetaminophen (Tylenol Extra Strength) 1,000 mg PO Q6H PRN Tobacco use date assessed: 12/08/23 Dental Screening Dental Screen Date: 12/08/23 Did you have a dental visit in the last 12 months?: Yes Did you have a dental problem in the last 6 months where you did not have access to dental care?: No Was dental information given to patient?: Patient has dentist HPI Discuss POTS~ [phone] HPI Details This is a telemedicine visit Patient is 28-year-old female who is having vague symptoms of headache, blurring of vision, chest pain, shortness for breath, feeling weak at times Symptoms are coming randomly at different times She has discussed her symptoms with 1 of the family member who is in medical field and was told that she might have POTS Explained to patient that postural hypotension does not cause headaches and blurring of vision I doubt that she has that illness but I will put in a referral for her to be evaluated by Cardiology as she is also having chest pain off and on She also tells me that there is a family history of asthma and she feels short of breath when she goes out in hot and humid weather She has tried albuterol inhaler moderate from family member and she felt better after I have sent an albuterol inhaler of her own I have told patient that she may use it every 6 hour if needed We will re-evaluate how often she is using it and will go from there. We will book another visit in 3 weeks [facility] Medical History Swelling of lower extremity Chronic headaches B12 deficiency Iron deficiency Fatigue Surgical History No pertinent past surgical history Family History Father No problems noted. Mother No problems noted. Sister No problems noted. Social History Housing: Apartment Patient Tobacco Use Status: Never used Tobacco e-Cigarette/Vaping Use: Never Used Current occupational status: employed Cognitive needs: No Hearing needs: No Vision needs: No Questionnaire Thrive Questionnaire Date Thrive assessed: 08/24/22 AUDIT C Alcohol Use Questionnaire (AUDIT-C) 1. How often do you have a drink containing alcohol?: Never 3. How often do you have six or more drinks on one occasion?: Never Total Score: 0 Score Reviewed/Action Taken: Yes THEE-7 AMB Questionnaire THEE-7 Date THEE - 7 assessed: 08/24/22 Source: Developed by Drs. Tobias Nova, Mary Muhammad, Ti Hunter and colleagues, with an educational delonte from [employer]. Review of Systems Const Denies chills and Denies fever(s) ENT Denies epistaxis and Denies nasal discharge Resp Denies chest congestion, Denies cough and Denies hemoptysis GI Denies diarrhea and Denies nausea Skin/Breast Denies rash Neuro Reports no additional complaints Psych Reports no additional complaints Endo Reports no additional complaints Physical exam (Primary Care) Tobacco/Smoking Status: Tobacco use Status Tobacco use date assessed 12/08/23 12/08/23 09:20 Patient Tobacco Use Status Never used Tobacco 12/08/23 09:20 e-Cigarette/Vaping Use Never Used 12/08/23 09:20 Thrive Assessment: Date of Thrive Assessment Date Thrive assessed 08/24/22 12/08/23 09:20 Telehealth Telehealth Telehealth Platform: [facility] Location of provider rendering services: practice address Location of patient: address on file Patient Identification confirmed using: Name, : Yes Telehealth method: voice only Patient verbally consented to treatment: Yes Patient verbally consented to billing insurance company: Yes Patient informed of any privacy concerns related to visit: Yes Minutes spent on Phone/Video with Pt.: 13 Assessment and Plan Assessment & Plan (1) Chest pain: Code(s): R07.9 - Chest pain, unspecified Qualifiers: Chest pain type: unspecified Qualified Code(s): R07.9 - Chest pain, unspecified (2) Shortness of breath: Code(s): R06.02 - Shortness of breath Plan This is a telemedicine visit Patient is 28-year-old female who is having vague symptoms of headache, blurring of vision, chest pain, shortness for breath, feeling weak at times Symptoms are coming randomly at different times She has discussed her symptoms with 1 of the family member who is in medical field and was told that she might have POTS Explained to patient that postural hypotension does not cause headaches and blurring of vision I doubt that she has that illness but I will put in a referral for her to be evaluated by Cardiology as she is also having chest pain off and on She also tells me that there is a family history of asthma and she feels short of breath when she goes out in hot and humid weather She has tried albuterol inhaler moderate from family member and she felt better after I have sent an albuterol inhaler of her own I have told patient that she may use it every 6 hour if needed We will re-evaluate how often she is using it and will go from there. We will book another visit in 3 weeks Orders: Referrals Cardiology Referral R06.02 - Shortness of breath, R07.9 - Chest pain, unspecified Medications: New albuterol sulfate 90 mcg/actuation 1 inh inhalation Q4-6H PRN 1 ea 2RF shortness of breath or wheezing Coding Level of Care Code Tele Est Pt Level 3 (33590) Diagnoses Chest pain, unspecified type R07.9 Chest pain type: unspecified Shortness of breath R06.02
== END 2023-12-08 10:40 | disposition home or self-care (01) ==
PROVIDERS: PCP Internal Medicine; Visit Provider Internal Medicine
DX: R07.9 Chest pain, unspecified (principal); R06.02 Shortness of breath
CPT/HCPCS: 99213

== ENCOUNTER 2023-12-29 08:28 | Outpatient (AMB) | payer OTHER, SELFPAY ==
--- NOTE | 2023-12-29 08:50 | A.OFFPC_ITS ---
Intake Visit Reasons: 3Wk F/u~[phone] Allergies No Known Allergies [No Known Allergies*] Allergy (Verified 12/29/23 08:50) Medication List - Last Reconciled 12/29/23 by Rober Osorio MD acetaminophen (Tylenol Extra Strength) 1,000 mg PO Q6H PRN albuterol sulfate 90 mcg/actuation 1 inh inhalation Q4-6H PRN Tobacco use date assessed: 12/29/23 Dental Screening Dental Screen Date: 12/29/23 Did you have a dental visit in the last 12 months?: Yes Did you have a dental problem in the last 6 months where you did not have access to dental care?: No Was dental information given to patient?: Patient has dentist HPI 3Wk F/u~[phone] HPI Details Patient continue to feel SOB, she was Rx albuterol inhaler she says she feels little better when she feel SOB, but when she is active even the inhaler dont work I have ordered PFT for the patient and we will also have her see consumer loan specialist [facility] Medical History Swelling of lower extremity Chronic headaches B12 deficiency Iron deficiency Fatigue Surgical History No pertinent past surgical history Family History Father No problems noted. Mother No problems noted. Sister No problems noted. Social History Housing: Apartment Patient Tobacco Use Status: Never used Tobacco e-Cigarette/Vaping Use: Never Used Current occupational status: employed Cognitive needs: No Hearing needs: No Vision needs: No Questionnaire Thrive Questionnaire Date Thrive assessed: 08/24/22 AUDIT C Alcohol Use Questionnaire (AUDIT-C) 1. How often do you have a drink containing alcohol?: Never 3. How often do you have six or more drinks on one occasion?: Never Total Score: 0 Score Reviewed/Action Taken: Yes THEE-7 AMB Questionnaire THEE-7 Date THEE - 7 assessed: 08/24/22 Source: Developed by Drs. Tobias Nova, Mary MuhammadTi and colleagues, with an educational delonte from [employer]. Review of Systems Const Denies chills and Denies fever(s) ENT Denies epistaxis and Denies nasal discharge Card Denies chest pain Resp Denies hemoptysis GI Denies diarrhea and Denies nausea Skin/Breast Denies rash Neuro Reports no additional complaints Psych Reports no additional complaints Endo Reports no additional complaints Physical exam (Primary Care) Tobacco/Smoking Status: Tobacco use Status Tobacco use date assessed 12/29/23 12/29/23 08:51 Patient Tobacco Use Status Never used Tobacco 12/29/23 08:51 e-Cigarette/Vaping Use Never Used 12/29/23 08:51 Thrive Assessment: Date of Thrive Assessment Date Thrive assessed 08/24/22 12/29/23 08:51 Telehealth Telehealth Telehealth Platform: [employer] Location of provider rendering services: practice address Location of patient: address on file Patient Identification confirmed using: Name, : Yes Telehealth method: voice only Patient verbally consented to treatment: Yes Patient verbally consented to billing insurance company: Yes Patient informed of any privacy concerns related to visit: Yes Minutes spent on Phone/Video with Pt.: 13 Assessment and Plan Assessment & Plan (1) Shortness of breath: Code(s): R06.02 - Shortness of breath Plan Patient continue to feel SOB, she was Rx albuterol inhaler she says she feels little better when she feel SOB, but when she is active even the inhaler dont work I have ordered PFT for the patient and we will also have her see consumer loan specialist Orders: Orders PFT pulmonary function test Today R06.02 - Shortness of breath Referrals Pulmonology Referral R06.02 - Shortness of breath Coding Level of Care Code Tele Est Pt Level 3 (16207) Diagnoses Shortness of breath R06.02
== END 2023-12-29 16:49 | disposition home or self-care (01) ==
LOC: HO.HMGC 08:28
PROVIDERS: PCP Internal Medicine; Visit Provider Internal Medicine
DX: R06.02 Shortness of breath (principal)
CPT/HCPCS: 99213

== ENCOUNTER 2024-01-03 09:42 | Outpatient (AMB) | payer OTHER, SELFPAY ==
--- NOTE | 2024-01-03 08:55 | A.OFFVIS_ITS ---
Vital Signs 01/03/24 09:46 Height 5 ft 3 in Weight 195 lb BMI 34.5 BP 110/76 Blood Pressure Location Rt brachial Position Sitting Pulse 77 Pulse Source Pulse Oximeter Pulse Oximetry (%) 99 Oxygen Delivery Method Room Air Intake Visit Reasons: Shortness of breath Allergies No Known Allergies [No Known Allergies*] Allergy (Verified 01/03/24 09:49) HPI HPI Shortness of breath: Details: Halle is a pleasant 28 year old female, never smoker, with underlying asthma. She was referred by PCP for pulmonary evaluation. She has had worsening control of respiratory symptoms since having COVID in 2021. She reports dyspnea on exertion, chest tightness, dry cough and wheezing. She denies prior diagnosis of asthma. She was prescribed an albuterol inhaler which she uses BID with good effect. She reports multiple seasonal allergies, not using daily antihistamine. She reports multiple first degree family members with asthma. 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 CXR 02/2023, unremarkable. [facility] Medical History Swelling of lower extremity Chronic headaches B12 deficiency Iron deficiency Fatigue Surgical History No pertinent past surgical history Family History Father No problems noted. Mother No problems noted. Sister No problems noted. Social History Housing: Apartment Patient Tobacco Use Status: Never used Tobacco e-Cigarette/Vaping Use: Never Used Current occupational status: employed Cognitive needs: No Hearing needs: No Vision needs: No Review of Systems Const Denies chills, Denies excessive sweating, Denies fever(s), Denies headache(s) and Denies night sweats Eyes Denies dry eyes, Denies irritation and Denies itchy eyes ENT Reports Normal hearing present, Denies headache(s), Denies nasal congestion, Denies nasal discharge, Denies post nasal drip and Denies sore throat Card Denies chest pain, Denies chest pain at rest, Denies chest pain with activity, Denies claudication, Denies leg edema, Denies orthopnea and Denies paroxysmal nocturnal dyspnea Resp Denies chest congestion, Denies excessive phlegm production, Denies pain on inspiration, Denies pain with cough and Denies stridor Musc Denies myalgias Neuro Reports Normal hearing present and Denies headache(s) Endo Denies excessive sweating Mitch/Lymph Denies lymphadenopathy Aller/Immun Denies itchy eyes and Denies seasonal rhinorrhea Physical Exam Vital Signs: Last Vital Signs Pulse 77 01/03/24 09:46 BP 110/76 01/03/24 09:46 Pulse Ox 99 01/03/24 09:46 Oxygen Delivery Method Room Air 01/03/24 09:46 BMI result Body Mass Index 34.5 Const General: cooperative, healthy appearing, comfortable, no acute distress, well developed and alert Nutritional Appearance: obese Orientation/consciousness: patient oriented x3 Limitations: no limitations HEENT Head: Yes normal to inspection, Yes normocephalic and Yes atraumatic Ears: hearing grossly normal bilaterally and external ears normal Eyes General: appearance normal, both eyes and all related structures Eyelids: Yes eyelids normal Sclerae: sclerae normal EOM: EOMs intact bilaterally Neck Neck: Yes normal visual inspection and Yes no lymphadenopathy Lymphatic: no lymphadenopathy noted Chest Chest palpation & inspection: normal inspection of the chest Resp Effort & Inspection: normal respiratory effort, able to speak in complete sentences, no audible wheezes, no cough, no stridor, not tachypneic, no tripod positioning and no use of accessory muscles Auscultation: clear to auscultation bilaterally Cardio Jugular venous distension: no JVD Rate: regular rate Rhythm: regular rhythm Skin Other: warm, dry General skin exam: no rashes or lesions noted Neuro General: patient oriented x3 Cranial nerves: Yes Normal hearing present Cognition (Neuro): normal cognition Gait exam (Neuro): Normal gait present Extrem General: Yes normal to inspection, Yes capillary refill normal, Yes no clubbing, cyanosis or edema and Yes no pedal edema Psych Appearance: grossly normal and well kempt Speech and movement: Normal speech and movement present and Clear speech present Affect: normal affect Attitude: cooperative Thought process: Normal thought process present Thought content: Normal thought content present Insight: Good insight present (Psych) Judgement: Good judgement present (Psych) Assessment & Plan Assessment & Plan (1) Asthma: Code(s): J45.909 - Unspecified asthma, uncomplicated Category: Medical Plan Halle's symptoms are likely related to underlying asthma. Will send for PFT to evaluate. Patient using albuterol frequently with good effect, will trial on ICS. Discussed importance of good oral hygiene. All questions were answered and patient is in agreement of plan. Will follow up to review response to inhaler and PFT results, or sooner if needed. Orders: Orders PFT pulmonary function test Today J45.909 - Unspecified asthma, uncomplicated Medications: New fluticasone propionate 44 mcg/actuation 2 puffs inhalation BID 10.6 grams 2RF Coding Level of Care Code New Pt Level 3 (12988) Diagnoses Asthma J45.909
[2024-01-03 09:46] VITALS: BP 110/76; PULSE 77; O2SAT 99; BMI 34.5
== END 2024-01-03 10:06 | disposition home or self-care (01) ==
PROVIDERS: PCP Internal Medicine; Visit Provider Nurse Practitioner Family
DX: J45.909 Unspecified asthma, uncomplicated (principal)
CPT/HCPCS: 99203

== ENCOUNTER → 2024-01-03 09:42 | Outpatient (BNVA) | payer OTHER, SELFPAY | PROVIDERS: PCP Internal Medicine; Visit Provider Nurse Practitioner Family | DX: J45.909 Unspecified asthma, uncomplicated (principal) | CPT/HCPCS: 99202 ==

== ENCOUNTER 2024-01-13 11:29 | Outpatient (AMB) | payer OTHER, SELFPAY ==
--- NOTE | 2024-01-13 11:32 | A.OFFPC_ITS ---
Vital Signs 01/13/24 11:34 Height 5 ft 3 in Weight 194 lb BMI 34.4 BP 112/78 Blood Pressure Location Lt brachial Position Sitting Pulse 78 Pulse Source Pulse Oximeter Pulse Oximetry (%) 98 Oxygen Delivery Method Room Air Intake Visit Reasons: Annual PE Allergies No Known Allergies [No Known Allergies*] Allergy (Verified 01/13/24 11:34) Medication List - Last Reconciled 01/13/24 by Rober Osorio MD acetaminophen (Tylenol Extra Strength) 1,000 mg PO Q6H PRN albuterol sulfate 90 mcg/actuation 1 inh inhalation Q4-6H PRN budesonide 90 mcg/actuation (Pulmicort Flexhaler) 2 inhalations inhalation BID prednisone 40 mg (2 x 20 mg) PO DAILY Tobacco use date assessed: 12/29/23 Dental Screening Dental Screen Date: 12/29/23 HPI Annual PE HPI Details Patient is 28-year-old female came in today for physical exam Patient is currently seeing parking enforcement specialist for shortness a breath She says that her symptoms are worse when it is humid outside and it interfere with her work, 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 Patient also is complaining of swelling of her ankles at the end of the day off and on I have ordered ultrasound to further evaluate that [facility] Breast exam was done today Lab order placed to be done fasting She is also complaining of feeling nauseous at night I have sent pantoprazole 40 mg to start once a day on empty stomach We will book appointment for her FMLA paperwork and to go over ultrasound report and to see if pantoprazole his helping with the nausea. [facility] Medical History Swelling of lower extremity Chronic headaches B12 deficiency Iron deficiency Fatigue Surgical History No pertinent past surgical history Family History Father No problems noted. Mother No problems noted. Sister No problems noted. Social History Housing: Apartment Patient Tobacco Use Status: Never used Tobacco e-Cigarette/Vaping Use: Never Used Current occupational status: employed Cognitive needs: No Hearing needs: No Vision needs: No Questionnaire PHQ-9 Over the last 2 weeks, how often have you been bothered by any of the following problems? 1. Little interest or pleasure in doing things: not at all 2. Feeling down, depressed, or hopeless: not at all 3. Trouble falling or staying asleep, or sleeping too much: more than half the days 4. Feeling tired or having little energy: more than half the days 5. Poor appetite or overeating: not at all 6. Feeling bad about yourself - or that you are a failure or have let yourself or your family down: not at all 7. Trouble concentrating on things, such as reading the newspaper or watching television: not at all 8. Moving or speaking so slowly that other people could have noticed. Or the opposite - being so fidgety or restless that you have been moving around a lot more than usual: not at all 9. Thoughts that you would be better off or of hurting yourself in some way: not at all Total score: 4 Depression Screening Interpretation: Negative Depression Screening Done: Yes 53669 - PHQ-9 Billing: Yes Source: Developed by Drs. Tobias Nova, Mary Muhammad, Ti Hunter and colleagues, with an educational delonte from [employer]. Thrive Questionnaire Date Thrive assessed: 01/13/24 I am a: Patient What is your living situation today?: I have a steady place to live Within the past 12 months, did the food you bought not last and you didn't have the money to get more?: Never true Within the past 12 months, did you worry whether your food would run out before you got money to buy more?: Never true Do you have trouble paying for medicines?: No Do you have trouble getting transportation to medical appointments?: No Do you have trouble paying your heating and electricity bill?: No Do you have trouble taking care of your child, family member or friend?: No Do you have trouble with day-to-day activities such as bathing, preparing meals, shopping, managing finances, etc.?: No Are you currently unemployed and looking for a job?: No Are you interested in more education?: No Please select the resources that you would like help with: None Currently or been in a relationship where the following occur: No concerns reported and I choose not to answer THRIVE Score: 0 AUDIT C Alcohol Use Questionnaire (AUDIT-C) 1. How often do you have a drink containing alcohol?: Never 3. How often do you have six or more drinks on one occasion?: Never Total Score: 0 Score Reviewed/Action Taken: No THEE-7 AMB Questionnaire THEE-7 Date THEE - 7 assessed: 01/13/24 Feeling nervous, anxious, or on edge: 2 = More than half the days Not being able to stop or control worryin = Not at all Worrying too much about different things: 0 = Not at all Trouble relaxin = Not at all Being so restless that it is hard to sit still: 0 = Not at all Becoming easily annoyed or irritable: 0 = Not at all Feeling afraid as if something awful might happen: 0 = Not at all Total THEE-7 score (0-4 normal; 5-9 mild; 10-14 moderate; 15-21 severe): 2 Source: Developed by Drs. Tobias Nova, Mary Muhammad, Ti Hunter and colleagues, with an educational delonte from [employer]. THEE-7 Assessment Billing THEE-7 Assessment Tool: THEE-7 Assessment 69907 Review of Systems Const Denies chills, Denies fever(s) and Denies headache(s) Eyes Denies blurry vision ENT Denies headache(s), Denies nasal discharge, Denies nasal obstruction, Denies odynophagia and Denies sinus pain Card Denies chest pain at rest and Denies chest pain with activity Resp Denies cough and Denies hemoptysis GI Denies diarrhea, Denies odynophagia and Denies hematemesis Reports as per HPI Musc Denies abnormal gait Skin/Breast Reports as per HPI Neuro Denies Neuro-related abnormal movements, Denies Abnormal speech present, Denies abnormal gait, Denies headache(s) and Denies Sensory deficit (Neuro) Psych Denies mood swings and Denies paranoia Endo Reports as per HPI Mitch/Lymph Reports as per HPI Aller/Immun Reports as per HPI Physical exam (Primary Care) Vital Signs: Last Vital Signs Pulse 78 01/13/24 11:34 BP 112/78 01/13/24 11:34 Pulse Ox 98 01/13/24 11:34 Oxygen Delivery Method Room Air 01/13/24 11:34 BMI result Body Mass Index 34.4 Tobacco/Smoking Status: Tobacco use Status Tobacco use date assessed 12/29/23 01/13/24 11:33 Patient Tobacco Use Status Never used Tobacco 01/13/24 11:33 e-Cigarette/Vaping Use Never Used 01/13/24 11:33 PHQ-9: PHQ-9 Score PHQ-9: Total score 4 01/13/24 12:05 Depression Screening Interpretation: Negative Thrive Assessment: Date of Thrive Assessment Date Thrive assessed 01/13/24 01/13/24 12:01 Currently or been in a relationship where the following occur: No concerns reported and I choose not to answer Const General: cooperative, comfortable and no acute distress Orientation/consciousness: patient oriented x3 HENMT Head: Yes normocephalic and Yes atraumatic Eyes General: appearance normal, both eyes and all related structures Pupils: Equal, round and reactive pupils present EOM: EOMs intact bilaterally Neck Neck: Yes supple and No lymphadenopathy Thyroid: Thyroid normal Lymphatic: no lymphadenopathy noted Chest Breast/axilla palpation: normal palpation of the breasts Resp Effort & Inspection: normal respiratory effort and able to speak in complete sentences Auscultation: clear to auscultation bilaterally Cardio Heart sounds: S1 normal heart sound present and S2 normal heart sound present GI Palpation (GI): Soft to palpation and nontender Auscultation: normal bowel sounds General: Yes no CVA tenderness Back/Spine/Pelvis Back: no CVA tenderness Skin General skin exam: elasticity normal and turgor normal Neuro General: patient oriented x3 and gait normal Cranial nerves: Yes Equal, round and reactive pupils present Speech: No Abnormal speech present Sensory Exam: No Sensory deficit (Neuro) Coordination: tandem gait normal and Romberg test negative Extrem General: Yes normal exam except as noted and No edema Assessment and Plan Assessment & Plan (1) Encounter for general adult medical examination with abnormal findings: Code(s): Z00.01 - Encounter for general adult medical examination with abnormal findings (2) Venous insufficiency (chronic) (peripheral): Code(s): I87.2 - Venous insufficiency (chronic) (peripheral) (3) Shortness of breath: Code(s): R06.02 - Shortness of breath (4) Iron deficiency: Code(s): E61.1 - Iron deficiency (5) B12 deficiency: Code(s): E53.8 - Deficiency of other specified B group vitamins (6) Migraine headache without aura: Code(s): G43.009 - Migraine without aura, not intractable, without status migrainosus Qualifiers: Status migrainosus presence: without status migrainosus Intractability: not intractable Qualified Code(s): G43.009 - Migraine without aura, not intractable, without status migrainosus (7) Vitamin D deficiency: Code(s): E55.9 - Vitamin D deficiency, unspecified Plan Patient is 28-year-old female came in today for physical exam Patient is currently seeing parking enforcement specialist for shortness a breath She says that her symptoms are worse when it is humid outside and it interfere with her work, 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 Patient also is complaining of swelling of her ankles at the end of the day off and on I have ordered ultrasound to further evaluate that [facility] Breast exam was done today Lab order placed to be done fasting She is also complaining of feeling nauseous at night I have sent pantoprazole 40 mg to start once a day on empty stomach We will book appointment for her FMLA paperwork and to go over ultrasound report and to see if pantoprazole his helping with the nausea. Orders: Orders US duplex arterial venous comp Today I87.2 - Venous insufficiency (chronic) (peripheral) Complete Blood Count Auto Diff Today E53.8 - Deficiency of other specified B group vitamins, E55.9 - Vitamin D deficiency, unspecified, E61.1 - Iron deficiency, G43.009 - Migraine without aura, not intractable, without status migrainosus, I87.2 - Venous insufficiency (chronic) (peripheral), R06.02 - Shortness of breath, Z00.01 - Encounter for general adult medical examination with abnormal findings Comprehensive [place]. Panel Fast Today E53.8 - Deficiency of other specified B group vitamins, E55.9 - Vitamin D deficiency, unspecified, E61.1 - Iron deficiency, G43.009 - Migraine without aura, not intractable, without status migrainosus, I87.2 - Venous insufficiency (chronic) (peripheral), R06.02 - Shortness of breath, Z00.01 - Encounter for general adult medical examination with abnormal findings TSH reflex Free T4 Today E53.8 - Deficiency of other specified B group vitamins, E55.9 - Vitamin D deficiency, unspecified, E61.1 - Iron deficiency, G43.009 - Migraine without aura, not intractable, without status migrainosus, I87.2 - Venous insufficiency (chronic) (peripheral), R06.02 - Shortness of breath, Z00.01 - Encounter for general adult medical examination with abnormal findings Lipid Panel Today E53.8 - Deficiency of other specified B group vitamins, E55.9 - Vitamin D deficiency, unspecified, E61.1 - Iron deficiency, G43.009 - Migraine without aura, not intractable, without status migrainosus, I87.2 - Venous insufficiency (chronic) (peripheral), R06.02 - Shortness of breath, Z00.01 - Encounter for general adult medical examination with abnormal findings Vitamin D 25-OH (D2 and D3) Today E53.8 - Deficiency of other specified B group vitamins, E55.9 - Vitamin D deficiency, unspecified, E61.1 - Iron deficiency, G43.009 - Migraine without aura, not intractable, without status migrainosus, I87.2 - Venous insufficiency (chronic) (peripheral), R06.02 - Shortness of breath, Z00.01 - Encounter for general adult medical examination with abnormal findings Vitamin B12 Today E53.8 - Deficiency of other specified B group vitamins, E55.9 - Vitamin D deficiency, unspecified, E61.1 - Iron deficiency, G43.009 - Migraine without aura, not intractable, without status migrainosus, I87.2 - Venous insufficiency (chronic) (peripheral), R06.02 - Shortness of breath, Z00.01 - Encounter for general adult medical examination with abnormal findings Medications: New omeprazole 20 mg PO DAILY 30 caps 0RF Coding Level of Care Code Est Pt Level 4 (32018) Est Pt Prev Care 18-39y(51385) Diagnoses Encounter for general adult medical examination with abnormal findings Z00.01 Venous insufficiency (chronic) (peripheral) I87.2 Shortness of breath R06.02 Iron deficiency E61.1 B12 deficiency E53.8 Migraine without aura and without status migrainosus, not intractable G43.009 Status migrainosus presence: without status migrainosus Intractability: not intractable Vitamin D deficiency E55.9 Additional Codes THEE-7 Assessment Billing - THEE-7 Assessment Tool: THEE-7 Assessment 96409 ([id number])
[2024-01-13 11:34] VITALS: BP 112/78; PULSE 78; O2SAT 98; BMI 34.4
== END 2024-01-13 11:59 | disposition home or self-care (01) ==
PROVIDERS: PCP Internal Medicine; Visit Provider Internal Medicine
DX: Z00.01 Encounter for general adult medical examination with abnormal findings (principal); R06.02 Shortness of breath; G43.009 Migraine without aura, not intractable, without status migrainosus; I87.2 Venous insufficiency (chronic) (peripheral); E61.1 Iron deficiency; E53.8 Deficiency of other specified B group vitamins; E55.9 Vitamin D deficiency, unspecified
CPT/HCPCS: 99214; 99395

== ENCOUNTER 2024-01-16 08:41 | Outpatient (REF) | payer OTHER, SELFPAY ==
[2024-01-16 10:09] LABS: MANUAL DIFF FLAG NO
[2024-01-16 10:25] LABS: Basophils Absolute Auto 0.1 X10*3/uL (0.0-0.2); Basophils Percent Auto 0.9 % (0-2); Eosinophils Absolute Auto 0.2 X10*3/uL (0.0-0.4); Eosinophils Percent Auto 2.1 % (0-4); Hematocrit 40.8 % (37.0-47.0); Hemoglobin 12.9 g/dl (12.0-16.0); Imm Gran Abs Auto 0.04 X10*3/uL (0.00-0.03); Imm Gran Pct Auto 0.5 % (0.0-0.4); Lymphocytes Absolute Auto 2.1 X10*3/uL (1.2-4.9); Lymphocytes Percent Auto 27.2 % (20-40); Mean Corpuscular HGB Conc 31.6 g/dl (31.0-35.0); Mean Corpuscular Hemoglobin 25.9 pg (27.0-33.0); Mean Corpuscular Volume 81.9 fL (80.0-98.0); Mean Platelet Volume 10.3 fL (9.4-12.3); Monocytes Absolute Auto 0.6 X10*3/uL (0.1-1.2); Monocytes Percent Auto 8.2 % (2-11); Neutrophils Absolute Auto 4.7 x10*3/uL (2.0-8.3); Neutrophils Percent Auto 61.1 % (45-73); Platelet Count 339 X10*3/uL (160-400); Red Blood Count 4.98 X10*6/uL (4.20-5.50); White Blood Count 7.6 X10*3/uL (4.8-10.8)
[2024-01-16 10:54] LABS: Alanine Aminotransferase 11 U/L (0-31); Albumin Level 4.1 g/dL (3.5-5.0); Alkaline Phosphatase 77 U/L (39-117); Anion Gap 12 (12-20); Aspartate Amino Transferase 14 U/L (5-31); Bilirubin Total 0.3 mg/dL (0.0-1.0); Blood Urea Nitrogen 12 mg/dL (9-16); Carbon Dioxide 24 mmol/L (22-29); Chloride 110 mmol/L (96-108); Cholesterol 135 mg/dL (<200); Estimated Glomerular Filt Rate > 60; Glucose Fasting 90 mg/dL (60-99); HDL Cholesterol 53 mg/dL (>40); LDL Cholesterol Calculated 64 mg/dL (<100); Potassium 3.9 mmol/L (3.3-5.1); Sodium 142 mmol/L (135-145); TSH reflex Free T4 1.14 uIU/mL (0.32-4.0); Total Protein 6.9 g/dL (6.5-8.0); Triglycerides 90 mg/dL (<150)
[2024-01-16 11:09] LABS: Vitamin B12 225 pg/mL (200-900)
[2024-01-20 13:30] LABS: Vitamin D 25-OH, D2 <4 ng/mL; Vitamin D 25-OH, D3 30 ng/mL; Vitamin D 25-OH, Total 30 ng/mL (30-100)
== END 2024-01-16 08:42 | disposition home or self-care (01) ==
LOC: HO.HMGCLDS 08:41
PROVIDERS: PCP Internal Medicine; Visit Provider Internal Medicine
DX: Z00.01 Encounter for general adult medical examination with abnormal findings (principal); E53.8 Deficiency of other specified B group vitamins; E61.1 Iron deficiency; G43.009 Migraine without aura, not intractable, without status migrainosus; E55.9 Vitamin D deficiency, unspecified; R06.02 Shortness of breath; I87.2 Venous insufficiency (chronic) (peripheral)
CPT/HCPCS: 36415; 80053; 80061; 82306; 82607; 84443; 85025

== ENCOUNTER 2024-01-26 08:04 | Outpatient (AMB) | payer OTHER, SELFPAY ==
--- NOTE | 2024-01-26 08:10 | MHC.PC.OV ---
Intake Visit Reasons: FMLA Allergies No Known Allergies [No Known Allergies*] Allergy (Verified 01/26/24 08:11) Medication List - Last Reconciled 01/26/24 by Rober Osorio MD acetaminophen (Tylenol Extra Strength) 1,000 mg PO Q6H PRN albuterol sulfate 90 mcg/actuation 1 inh inhalation Q4-6H PRN budesonide 90 mcg/actuation (Pulmicort Flexhaler) 2 inhalations inhalation BID omeprazole 20 mg PO DAILY Tobacco use date assessed: 01/26/24 Dental Screening Dental Screen Date: 01/26/24 Did you have a dental visit in the last 12 months?: Yes Did you have a dental problem in the last 6 months where you did not have access to dental care?: No Was dental information given to patient?: Patient has dentist HPI FMLA HPI Details Patient is 28-year-old female who has been having recurrent coughing flare-up She is under care of public health specialist 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 [facility] Medical History Swelling of lower extremity Chronic headaches B12 deficiency Iron deficiency Fatigue Surgical History No pertinent past surgical history Family History Father No problems noted. Mother No problems noted. Sister No problems noted. Social History Housing: Apartment Patient Tobacco Use Status: Never used Tobacco e-Cigarette/Vaping Use: Never Used Current occupational status: employed Cognitive needs: No Hearing needs: No Vision needs: No Questionnaire Thrive Questionnaire Date Thrive assessed: 01/13/24 AUDIT C Alcohol Use Questionnaire (AUDIT-C) 1. How often do you have a drink containing alcohol?: Never 3. How often do you have six or more drinks on one occasion?: Never Total Score: 0 Score Reviewed/Action Taken: Yes THEE-7 AMB Questionnaire THEE-7 Date THEE - 7 assessed: 01/13/24 Source: Developed by Drs. Tobias Nova, Mary Muhammad, Ti Hunter and colleagues, with an educational delonte from [employer]. Review of Systems Const Denies chills and Denies fever(s) ENT Denies epistaxis and Denies nasal discharge Card Denies chest pain Resp Denies chest congestion and Denies hemoptysis GI Denies diarrhea and Denies nausea Skin/Breast Denies rash Neuro Reports no additional complaints Psych Reports no additional complaints Endo Reports no additional complaints Physical exam (Primary Care) Tobacco/Smoking Status: Tobacco use Status Tobacco use date assessed 01/26/24 01/26/24 08:11 Patient Tobacco Use Status Never used Tobacco 01/26/24 08:11 e-Cigarette/Vaping Use Never Used 01/26/24 08:11 Thrive Assessment: Date of Thrive Assessment Date Thrive assessed 01/13/24 01/26/24 08:11 Telehealth Telehealth Telehealth Platform: Shopping [employer] Location of provider rendering services: practice address Location of patient: address on file Patient Identification confirmed using: Name, : Yes Telehealth method: video Patient verbally consented to treatment: Yes Patient verbally consented to billing insurance company: Yes Patient informed of any privacy concerns related to visit: Yes Minutes spent on Phone/Video with Pt.: 13 Assessment and Plan Assessment & Plan (1) Shortness of breath: Code(s): R06.02 - Shortness of breath (2) Cough: Code(s): R05.9 - Cough, unspecified Qualifiers: Cough type: chronic Qualified Code(s): R05.3 - Chronic cough Plan Patient is 28-year-old female who has been having recurrent coughing flare-up She is under care of public health specialist 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 Coding Level of Care Code Tele Est Pt Level 3 (56024) Diagnoses Shortness of breath R06.02 Chronic cough R05.3 Cough type: chronic
== END 2024-01-26 11:04 | disposition home or self-care (01) ==
LOC: HO.HMGC 08:04
PROVIDERS: PCP Internal Medicine; Visit Provider Internal Medicine
DX: R06.02 Shortness of breath (principal); R05.3 Chronic cough
CPT/HCPCS: 99213

== ENCOUNTER → 2024-03-07 10:49 | Outpatient (RCR) | payer OTHER, SELFPAY ==
[2020-05-28 15:49] VITALS: BP 119/70; PULSE 87; RESP 16; TEMP 36.7; O2SAT 97; BMI 33.1
--- NOTE | 2020-05-28 15:58 | PM.HEMONCPN ---
Medical Summary - Medical Summary Chief complaint: Fatigue Medical Summary: Diagnosis: Iron deficiency and mild vitamin B12 deficiency Reports of easy skin bruising. No history of excess menstrual bleeding, no prolonged bleeding after surgical procedures. No family history of bleeding disorder. Normal coagulation tests, platelet count and Von Willebrand's test. Serum iron of 38, iron saturation of 10%, ferritin of 5% in . Vitamin B12 242pg/mL. Normal TSH and folic acid levels. Interval History Interval history: Patient is here in follow-up. She is doing okay but reports excess fatigue and daytime sleepiness. She sleeps 8 hours at night time and still feels tired after work. She has to take a nap in the evenings before bedtime. Her appetite is good, she has gained some weight. She states there is family history of thyroid problems in all her female family members, she has been checked and was found to be normal. Her menstrual cycles are not very heavy. She just started oral iron and B12 supplements. Review of Systems - Constitutional Reports no additional constitutional complaints, Denies anorexia, Reports fatigue, Denies night sweats, Denies poor appetite, Reports weight gain - Cardiovascular Denies no additional cardiovascular complaints - Respiratory Denies no additional respiratory complaints [facility] Medical History: Medical History (Last Updated 05/28/20 @ 15:52 by Jaye Morrison RN) B12 deficiency Chronic headaches Fatigue Iron deficiency Swelling of lower extremity Family History: Family History (Last Reviewed 05/13/20 @ 20:32 by Rober Osorio MD) Father No problems noted. Mother No problems noted. Sister No problems noted. Surgical History: Surgical History (Last Reviewed 05/13/20 @ 20:32 by Rober Osorio MD) No pertinent past surgical history Oncology Screenings - ECOG Performance Status ECOG Performance Status: 1 Home Medications and Allergies Home Medications Medication Instructions Recorded Confirmed Type albuterol sulfate 90 mcg/actuation 1 puff PO Q4H PRN 05/13/20 05/28/20 History aerosol inhaler Allergies Allergy/AdvReac Type Severity Reaction Status Date / Time No Known Allergies Allergy Verified 05/13/20 11:43 [No Known Allergies*] Exam Vital signs: Vital Signs Temp 98.0 F 05/28/20 15:49 Pulse 87 05/28/20 15:49 Resp 16 05/28/20 15:49 BP 119/70 05/28/20 15:49 Pulse Ox 97 05/28/20 15:49 Intake & Output 05/27/20 05/28/20 05/28/20 18:59 06:59 18:59 Other: Weight 84.9 kg Weight 84.9 kg Body Mass Index 33.1 - Constitutional Present: average body habitus - Routine HEENT Exam Head: Present: normal inspection Eye: Present: EOMI - Routine Neck Exam Present: full ROM - Routine Respiratory Exam Present: CTAB - Routine Cardiovascular Exam Cardiovascular: Present: S1, S2 Data - Labs CBC & Chem 7: 05/28/20 16:12 Progress Note: A/P (1) Iron deficiency Status: Acute Assessment and plan: 1. This is a 23-year-old woman with Mild iron and vitamin B12 deficiency. She is on oral iron supplementation. She has evidence of worsening iron deficiency, she is now anemic as well. She appears to be symptomatic from this. She is interested in parenteral iron therapy. We discussed possible side effects such as infusion reactions, she is willing to proceed. Schedule iron dextran therapy in the following days. Follow-up in 3-6 months. - Time Spent With Patient Total time spent is greater than 50% in coordination of care (as documented) at patient's floor/unit and/or counseling patient: 15 - 24 minutes
[2020-05-28 16:15] LABS: MANUAL DIFF FLAG NO
[2020-05-28 16:20] LABS: Basophils Percent Auto 0.6 % (0-2); Eosinophils Absolute Auto 0.2 X10*3/uL (0.0-0.4); Eosinophils Percent Auto 2.4 % (0-4); Hematocrit 35.3 % (37-47); Hemoglobin 10.8 g/dl (12.0-16.0); Imm Gran Abs Auto 0.02 X10*3/uL (0.00-0.03); Imm Gran Pct Auto 0.3 % (0.0-0.4); Lymphocytes Absolute Auto 1.7 X10*3/uL (1.2-4.9); Mean Corpuscular HGB Conc 30.6 g/dl (31.0-35.0); Mean Corpuscular Hemoglobin 23.1 pg (27.0-33.0); Mean Corpuscular Volume 75.4 fL (80-98); Mean Platelet Volume 9.9 fL (9.4-12.3); Monocytes Absolute Auto 0.6 X10*3/uL (0.1-1.2); Monocytes Percent Auto 9.2 % (2-11); Neutrophils Absolute Auto 3.8 X10*3/uL (2.0-8.3); Neutrophils Percent Auto 60.5 % (45-73); Platelet Count 398 X10*3/uL (160-400); Red Blood Count 4.68 X10*6/uL (4.20-5.50); Red Cell Distribution Width 16.2 % (11.0-16.0); White Blood Count 6.3 X10*3/uL (4.8-10.8)
--- NOTE | 2020-05-28 16:49 | PC.NURSE ---
Patient saw Dr Camacho today for follow up, according to her blood work she is a little anemic and agrees to have IV Dextran. I will call pharmacy and set up schedule for this tomorrow with Yecenia. Dr Camacho has signed the order.
[2020-05-28 17:03] LABS: Iron 20 mcg/dL (30-160); Percent Iron Saturation 4 % (15-50); Total Iron Binding Capacity 504 mcg/dL (228-428); Unsaturated Iron Binding 484 ug/dL
[2020-05-28 17:45] LABS: Vitamin B12 299 pg/mL (200-900)
== END | disposition home or self-care (01) ==
LOC: HO.ONC 05-28 15:41
PROVIDERS: PCP Internal Medicine; Visit Provider Internal Medicine
DX: E61.1 Iron deficiency (principal); E53.8 Deficiency of other specified B group vitamins; Z79.899 Other long term (current) drug therapy
CPT/HCPCS: 36415; 82607; 83540; 85025; 99214

== ENCOUNTER 2024-03-20 15:15 | Outpatient (AMB) | payer OTHER, SELFPAY ==
--- NOTE | 2024-03-20 15:42 | AM.OFFWIN_ITS ---
Intake Vital Signs 03/20/24 15:43 Height 5 ft 3 in Weight 189 lb BMI 33.5 BP 118/70 Blood Pressure Location Lt brachial Position Sitting Pulse 67 Pulse Source Pulse Oximeter Temp 98.7 F Temp Source Oral Pulse Oximetry (%) 99 Oxygen Delivery Method Room Air Intake Visit Reasons: EP cramping/other concerns Intake Note: pt c/o cramping, white vaginal discharge, nausea and dizziness. Requesting HCG testing Patient Tobacco Use Status: Never used Tobacco Allergies No Known Allergies [No Known Allergies*] Allergy (Verified 03/20/24 15:43) Do you need a note to return to daycare/school/sports/work: No HPI HPI Comments History of Present Illness Details 28 y/o female patient who presents to [facility] with c/o lower abdominal cramping associated with vaginal discharge x 2 weeks. Describes the discharge as white to clear with foul smell. She is sexually active with 1 male partner - no protection. LMP: 1 month ago, asking for testing. She is trying to conceive another child. [facility] Medical History Swelling of lower extremity Chronic headaches B12 deficiency Iron deficiency Fatigue Surgical History No pertinent past surgical history Family History Father No problems noted. Mother No problems noted. Sister No problems noted. Social History Housing: Apartment Patient Tobacco Use Status: Never used Tobacco e-Cigarette/Vaping Use: Never Used Current occupational status: employed Cognitive needs: No Hearing needs: No Vision needs: No Review of Systems Const All systems reviewed & are unremarkable except as noted in HPI and below Physical Exam Vital Signs: Last Vital Signs Temp 98.7 F 03/20/24 15:43 Pulse 67 03/20/24 15:43 BP 118/70 03/20/24 15:43 Pulse Ox 99 03/20/24 15:43 Oxygen Delivery Method Room Air 03/20/24 15:43 BMI result Body Mass Index 33.5 Const General: cooperative, comfortable and no acute distress Nutritional Appearance: obese Orientation/consciousness: patient oriented x3 GI Inspection: Yes obesity Palpation (GI): Soft to palpation, not firm, nontender, no guarding, not rigid and No hepatosplenomegaly present Auscultation: normal bowel sounds General: Yes no CVA tenderness Speculum Exam - Vagina: normal palpation, abnormal vaginal discharge white and erythematous Speculum Exam - Cervix: normal appearance of the cervix, Cervical os open and nontender Bimanual exam- vagina & uterus: normal bimanual exam, normal palpation, No Cervical tenderness present and non-tender OB/external & speculum: Cervical os open Back/Spine/Pelvis Back: no CVA tenderness Skin General skin exam: no rashes or lesions noted Neuro General: patient oriented x3, gait normal and moves all extremities Psych Speech and movement: Normal speech and movement present Results AMB Test Urine AMB Test Urine Negative Last Edit by Julio César Butler CMA on 4 16:06 AMB Urinalysis, Automated UA Leukoctes 0 Leila/uL Last Edit by Julio César Butler CMA on 03/20/24 16:08 UA Nitrite Negative Last Edit by Julio César Butler CMA on 03/20/24 16:08 UA Urobilinogen 0.2 mg/dL Last Edit by Julio César Butler CMA on 03/20/24 16:08 UA Protein 15 mg/dL Last Edit by Julio César Butler CMA on 03/20/24 16:08 UA pH 6.0 Last Edit by Julio César Butler CMA on 03/20/24 16:08 UA Blood 0 Ismael/uL Last Edit by Julio César Butler CMA on 03/20/24 16:08 UA Specific [place] 1.020 Last Edit by Julio César Butler CMA on 03/20/24 16:08 UA Ketone Negative Last Edit by Julio César Butler CMA on 03/20/24 16:08 UA Bilirubin 1 mg/dL Last Edit by Julio César Butler CMA on 03/20/24 16:08 UA Glucose 0 mg/dL Last Edit by Julio César Butler CMA on 03/20/24 16:08 Results Reviewed Results Reviewed: Laboratory Last Values Urine pH (Auto) 6.0 03/20/24 16:05 Specific [place] (Auto) 1.020 03/20/24 16:05 Urine Protein (Auto) 15 mg/dL 03/20/24 16:05 Glucose (UA)(Auto) 0 mg/dL 03/20/24 16:05 Urine Ketones (Auto) Negative 03/20/24 16:05 Urine Blood (Auto) 0 Ismael/uL 03/20/24 16:05 Urine Nitrite (Auto) Negative 03/20/24 16:05 Urine Bilirubin (Auto) 1 mg/dL 03/20/24 16:05 Urine Urobilinogen (Auto) 0.2 mg/dL 03/20/24 16:05 Leukocyte Esterase (Auto) 0 Leila/uL 03/20/24 16:05 Tst Clinic Negative 03/20/24 16:05 Assessment & Plan Assessment & Plan (1) Vaginitis and vulvovaginitis: Code(s): N76.0 - Acute vaginitis Plan: Ordered Vaginal panel Ordered Metronidazole x 7 days. Avoid alcohol while taking Metronidazole. HCG negative U/A normal Orders: Orders AMB HCG Urine Test Today Z13.9 - Encounter for screening, unspecified AMB Urinalysis Automated Today Z13.9 - Encounter for screening, unspecified Bacterial Vaginosis Panel Today N76.0 - Acute vaginitis Medications: New metronidazole 500 mg PO BID 7 days 14 tabs 0RF N76.0 - Acute vaginitis Coding Level of Care Code Est Pt Level 4 (76210) Diagnoses Vaginitis and vulvovaginitis N76.0 Time Spent (min) 20
[2024-03-20 15:43] VITALS: BP 118/70; PULSE 67; TEMP 37.1; O2SAT 99; BMI 33.5
== END 2024-03-20 16:31 | disposition home or self-care (01) ==
PROVIDERS: PCP Internal Medicine; Visit Provider Nurse Practitioner Family
DX: N76.0 Acute vaginitis (principal); Z32.02 Encounter for pregnancy test, result negative
CPT/HCPCS: 81003; 81025; 99214

== ENCOUNTER 2024-03-20 16:07 | Outpatient (REF) | payer OTHER, SELFPAY ==
[2024-03-21 11:24] LABS: Bacterial Vaginosis PCR POSITIVE (Negative); Candida Group PCR NOT DETECTED (Not Detect); Candida glab krusei PCR NOT DETECTED (Not Detect); Trichomonas vaginalis PCR NOT DETECTED (Not Detect)
== END 2024-03-20 16:08 | disposition home or self-care (01) ==
LOC: HO.LAB 16:07
PROVIDERS: Visit Provider Nurse Practitioner Family
DX: N76.0 Acute vaginitis (principal)
CPT/HCPCS: 0352U

== ENCOUNTER 2024-07-17 13:47 | Outpatient (AMB) | payer OTHER, SELFPAY ==
[2024-07-17 14:03] VITALS: BP 100/60; PULSE 78; TEMP 36.7; O2SAT 99; BMI 27.6
--- NOTE | 2024-07-17 14:03 | MHC.OFFWIV ---
Intake Vital Signs 07/17/24 14:03 Height 5 ft 3 in Weight 156 lb BMI 27.6 BP 100/60 Blood Pressure Location Lt brachial Position Sitting Pulse 78 Pulse Source Pulse Oximeter Temp 98.0 F Temp Source Oral Pulse Oximetry (%) 99 Oxygen Delivery Method Room Air Intake Visit Reasons: EP migraines Intake Note: Pt is here today c/o migraines since last tuesday Patient Tobacco Use Status: Never used Tobacco Allergies No Known Allergies [No Known Allergies*] Allergy (Verified 07/17/24 14:14) HPI HPI Comments History of Present Illness Details Patient is a 28yo F who presents to office with migraine Ongoing since Tuesday She has been taking tylenol without relief She also tried excedrin She said constant Pain is constant; light makes worse She said located in back of head No HT or LOC She states she has not had a headache this long before No URI symptoms; congestion, ear pain or ST No fever or chills Pain level is 8/10 Hx of headaches, usually lasts less time No increased stress or on menstrual cycle She said intermittent dizziness, has not affected daily activitty No nausea or vomiting Patient was able to work today and intends on working tomorrow [facility] Medical History Swelling of lower extremity Chronic headaches B12 deficiency Iron deficiency Fatigue Surgical History No pertinent past surgical history Family History Father No problems noted. Mother No problems noted. Sister No problems noted. Social History Housing: Apartment Patient Tobacco Use Status: Never used Tobacco e-Cigarette/Vaping Use: Never Used Current occupational status: employed Cognitive needs: No Hearing needs: No Vision needs: No Review of Systems Const Denies chills, Denies fever(s), Denies frequent falls, Reports headache(s) and Denies weakness Eyes Denies blurry vision and Denies change in vision ENT Reports dizziness (he said minimal but does not effect ADLs), Denies otalgia, Reports headache(s), Reports sinus pressure and Denies sore throat Card Denies chest pain, Denies syncope and Denies dyspnea Resp Denies cough and Denies dyspnea GI Denies abdominal pain Musc Denies myalgias Neuro Reports dizziness (he said minimal but does not effect ADLs), Denies syncope, Denies frequent falls, Reports headache(s) and Denies weakness Physical Exam Vital Signs: Last Vital Signs Temp 98.0 F 07/17/24 14:03 Pulse 78 07/17/24 14:03 BP 100/60 07/17/24 14:03 Pulse Ox 99 07/17/24 14:03 Oxygen Delivery Method Room Air 07/17/24 14:03 BMI result Body Mass Index 27.6 General: Non-toxic, NAD. Speaking full sentences. Skin: Warm dry throughout Eye: EOMI, PERRL Neck: No c-spine tenderness. + tenderness to palpation of bilareral trapezius muscles. HENT: Airway patent. Uvula midline. No pharyngeal erythema or edema. 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 Bilateral canals clear. TM non-erythematous, non-bulging. No TM perforation or hemotympanum noted. Respiratory: No respiratory distress MSK: Full ROM extremities. Neurology: A/O x 3. CN 2-12 grossly intact. Finger to nose point testing intact. Able to maintain balance with rhomberg. 5/5 quality engineer strength and strength of upper extremities. No aphasia or facial droop. Gait without abnormality Psych: Good mood and affect Assessment & Plan Assessment & Plan (1) Tension headache: Code(s): G44.209 - Tension-type headache, unspecified, not intractable Plan: Patient seen and evaluated. SYmptoms appear consistent with tension headache. No neurological deficit on examination Will trial warm compress to neck and Robaxin (lethargy, no alcohol or driving) Tylenol dueing day prn pain If any worse pain, pre-syncope, weakness vision changes etc, go to ER Patient gave verbal understanding and had no additional questions or concerns at time of discharge All questions answered Medications: New methocarbamol no alcohol or driving or working under influence 500 mg PO BID PRN 8 tabs 0RF pain Coding Level of Care Code Est Pt Level 3 (14003) Diagnoses Tension headache G44.209
== END 2024-07-17 14:53 | disposition home or self-care (01) ==
PROVIDERS: PCP Internal Medicine; Visit Provider Physician Assistant
DX: G44.209 Tension-type headache, unspecified, not intractable (principal)

== ENCOUNTER → 2024-07-17 13:47 | Outpatient (BNVA) | payer OTHER, SELFPAY | PROVIDERS: PCP Internal Medicine; Visit Provider Physician Assistant | DX: G44.209 Tension-type headache, unspecified, not intractable (principal) | CPT/HCPCS: 99212 ==

== ENCOUNTER 2024-07-19 08:23 | Outpatient (AMB) | payer OTHER, SELFPAY ==
--- NOTE | 2024-07-19 09:04 | A.OFFPC_ITS ---
Intake Visit Reasons: migraines Allergies No Known Allergies [No Known Allergies*] Allergy (Verified 07/19/24 09:05) Medication List - Last Reconciled 07/19/24 by Rober Osorio MD acetaminophen (Tylenol Extra Strength) 1,000 mg PO Q6H PRN albuterol sulfate 90 mcg/actuation 1 inh inhalation Q4-6H PRN budesonide 90 mcg/actuation (Pulmicort Flexhaler) 2 inhalations inhalation BID methocarbamol 500 mg PO BID PRN omeprazole 20 mg PO DAILY Tobacco use date assessed: 07/19/24 Dental Screening Dental Screen Date: 07/19/24 Did you have a dental visit in the last 12 months?: Yes Did you have a dental problem in the last 6 months where you did not have access to dental care?: No Was dental information given to patient?: Patient has dentist HPI migraines HPI Details Patient is 28-year-old female this is a telemedicine visit Complaining of headache which are located occipital She was evaluated in walk-in clinic and was started on methocarbamol thinking it is a stress headache Patient says that medication did help her however headaches continue and they feel like throbbing and associated with a blurring of vision Headache is continues to a point that it is bothering her at work as well Patient does have a history of migraine but has never seen neurologist I have sent sumatriptan 50 mg to be taken at the onset of headache Amitriptyline 10 mg every night, she may continue methocarbamol as well Patient need to see neurologist for further management, referral placed [facility] Medical History Swelling of lower extremity Chronic headaches B12 deficiency Iron deficiency Fatigue Surgical History No pertinent past surgical history Family History Father No problems noted. Mother No problems noted. Sister No problems noted. Social History Housing: Apartment Patient Tobacco Use Status: Never used Tobacco e-Cigarette/Vaping Use: Never Used Current occupational status: employed Cognitive needs: No Hearing needs: No Vision needs: No Questionnaire PHQ-9 Over the last 2 weeks, how often have you been bothered by any of the following problems? 1. Little interest or pleasure in doing things: not at all 2. Feeling down, depressed, or hopeless: not at all 3. Trouble falling or staying asleep, or sleeping too much: more than half the days 4. Feeling tired or having little energy: more than half the days 5. Poor appetite or overeating: not at all 6. Feeling bad about yourself - or that you are a failure or have let yourself or your family down: not at all 7. Trouble concentrating on things, such as reading the newspaper or watching television: not at all 8. Moving or speaking so slowly that other people could have noticed. Or the opposite - being so fidgety or restless that you have been moving around a lot more than usual: not at all 9. Thoughts that you would be better off or of hurting yourself in some way: not at all Total score: 4 Depression Screening Interpretation: Negative Depression Screening Done: Yes 50772 - PHQ-9 Billing: Yes Source: Developed by Drs. Tobias Nova, Mary Muhammad, Ti Hunter and colleagues, with an educational delonte from [employer]. Thrive Questionnaire Date Thrive assessed: 07/19/24 I am a: Patient What is your living situation today?: I have a steady place to live Within the past 12 months, did the food you bought not last and you didn't have the money to get more?: Never true Within the past 12 months, did you worry whether your food would run out before you got money to buy more?: Never true Do you have trouble paying for medicines?: No Do you have trouble getting transportation to medical appointments?: No Do you have trouble paying your heating and electricity bill?: No Do you have trouble taking care of your child, family member or friend?: No Do you have trouble with day-to-day activities such as bathing, preparing meals, shopping, managing finances, etc.?: No Are you currently unemployed and looking for a job?: No Are you interested in more education?: No Please select the resources that you would like help with: None Currently or been in a relationship where the following occur: No concerns reported THRIVE Score: 0 AUDIT C Alcohol Use Questionnaire (AUDIT-C) 1. How often do you have a drink containing alcohol?: Never 3. How often do you have six or more drinks on one occasion?: Never Total Score: 0 Score Reviewed/Action Taken: Yes THEE-7 AMB Questionnaire THEE-7 Date THEE - 7 assessed: 07/19/24 Feeling nervous, anxious, or on edge: 0 = Not at all Not being able to stop or control worryin = Not at all Worrying too much about different things: 0 = Not at all Trouble relaxin = Not at all Being so restless that it is hard to sit still: 0 = Not at all Becoming easily annoyed or irritable: 0 = Not at all Feeling afraid as if something awful might happen: 0 = Not at all Total THEE-7 score (0-4 normal; 5-9 mild; 10-14 moderate; 15-21 severe): 0 Source: Developed by Drs. Tobias Nova, Mary Muhammad, Ti Hunter and colleagues, with an educational delonte from [employer]. THEE-7 Assessment Billing THEE-7 Assessment Tool: THEE-7 Assessment 48682 Review of Systems Const Denies chills and Denies fever(s) ENT Denies epistaxis and Denies nasal discharge Card Denies chest pain Resp Denies chest congestion, Denies cough and Denies hemoptysis GI Denies diarrhea and Denies nausea Skin/Breast Denies rash Neuro Reports no additional complaints Psych Reports no additional complaints Endo Reports no additional complaints Physical exam (Primary Care) Tobacco/Smoking Status: Tobacco use Status Tobacco use date assessed 07/19/24 07/19/24 09:06 Patient Tobacco Use Status Never used Tobacco 07/19/24 09:06 e-Cigarette/Vaping Use Never Used 07/19/24 09:06 PHQ-9: PHQ-9 Score PHQ-9: Total score 4 07/19/24 09:52 Depression Screening Interpretation: Negative Thrive Assessment: Date of Thrive Assessment Date Thrive assessed 07/19/24 07/19/24 09:06 Currently or been in a relationship where the following occur: No concerns reported Telehealth Telehealth Telehealth Platform: [facility] Location of provider rendering services: practice address Location of patient: address on file Patient Identification confirmed using: Name, : Yes Telehealth method: voice only Patient verbally consented to treatment: Yes Patient verbally consented to billing insurance company: Yes Patient informed of any privacy concerns related to visit: Yes Minutes spent on Phone/Video with Pt.: 14 Coding Level of Care Code Tele Est Pt Level 3 (26148) Diagnoses Headache syndrome G44.89 Additional Codes THEE-7 Assessment Billing - THEE-7 Assessment Tool: THEE-7 Assessment 67337 ([id number]) PHQ-9 - 49268 - PHQ-9 Billing: Yes ([id number]) Assessment & Plan Assessment & Plan (1) Headache syndrome: Code(s): G44.89 - Other headache syndrome Category: Medical Plan Patient is 28-year-old female this is a telemedicine visit Complaining of headache which are located occipital She was evaluated in walk-in clinic and was started on methocarbamol thinking it is a stress headache Patient says that medication did help her however headaches continue and they feel like throbbing and associated with a blurring of vision Headache is continues to a point that it is bothering her at work as well Patient does have a history of migraine but has never seen neurologist I have sent sumatriptan 50 mg to be taken at the onset of headache Amitriptyline 10 mg every night, she may continue methocarbamol as well Patient need to see neurologist for further management, referral placed Orders: Referrals Neurology Referral G44.89 - Other headache syndrome Medications: New sumatriptan succinate 50 mg PO .qhs 10 days PRN 10 tabs 0RF migraine headache amitriptyline 10 mg PO BEDTIME 30 tabs 0RF Changed From methocarbamol no alcohol or driving or working under influence 500 mg PO BID PRN 8 tabs 0RF pain To methocarbamol no alcohol or driving or working under influence 500 mg PO .qhs 30 days PRN 30 tabs 0RF pain
== END 2024-07-19 11:33 | disposition home or self-care (01) ==
LOC: HO.HMCC 08:23
PROVIDERS: PCP Internal Medicine; Visit Provider Internal Medicine
DX: G44.89 Other headache syndrome (principal)

== ENCOUNTER → 2024-07-19 08:23 | Outpatient (BNVA) | payer OTHER, SELFPAY | PROVIDERS: PCP Internal Medicine; Visit Provider Internal Medicine | DX: G44.89 Other headache syndrome (principal) | CPT/HCPCS: 96127 ==

== ENCOUNTER 2024-12-20 08:36 | Outpatient (AMB) | payer OTHER, SELFPAY ==
--- NOTE | 2024-12-20 09:25 | A.OFFPC_ITS ---
Intake Visit Reasons: fmla forms - iphone Allergies No Known Allergies [No Known Allergies*] Allergy (Verified 07/19/24 09:05) Medication List - Last Reconciled 12/20/24 by Rober Osorio MD acetaminophen (Tylenol Extra Strength) 1,000 mg PO Q6H PRN albuterol sulfate 90 mcg/actuation 1 inh inhalation Q4-6H PRN amitriptyline 10 mg PO BEDTIME budesonide 90 mcg/actuation (Pulmicort Flexhaler) 2 inhalations inhalation BID methocarbamol 500 mg PO .qhs PRN 30 days omeprazole 20 mg PO DAILY sumatriptan succinate 50 mg PO .qhs PRN 10 days Tobacco use date assessed: 07/19/24 Dental Screening Dental Screen Date: 07/19/24 HPI fmla forms - iphone HPI Details History - The patient is a 29-year-old female pr esenting with asthma management concerns for recertification paperwork. - The patient has a history of chronic a sthma and experiences shortness of breath. - The patient reports absences from work due to asthma symptoms occurring between 1 and 2 times per week. - She last completed recertification for her asthma condition last year. - The patient is currently under the car e of a correctional casework specialist, with an upcoming appointment scheduled in January. Social History: - Employment: Patient works a schedule o f 8 hours per day. Problem List - Chronic persistent asthma with flare u p twice a week requiring absence from work Patient Instructions - paperwork filled will be ready for pi ckup tomorrow. f/u with correctional casework specialist , continue inhalers Review of Systems - General: No fever no chills - Neurological: No headaches no dizziness - Ear nose throat: No sore throat no hearing difficulty no ear pain - Cardiovascular: No syncope, no chest pain, no palpitations - Gastrointestinal: No nausea vomiting or diarrhea PFSH Medical History Swelling of lower extremity Chronic headaches B12 deficiency Iron deficiency Fatigue Surgical History No pertinent past surgical history Family History Father No problems noted. Mother No problems noted. Sister No problems noted. Social History Housing: Apartment Patient Tobacco Use Status: Never used Tobacco e-Cigarette/Vaping Use: Never Used Current occupational status: employed Cognitive needs: No Hearing needs: No Vision needs: No Questionnaire Thrive Questionnaire Date Thrive assessed: 07/19/24 AUDIT C Alcohol Use Questionnaire (AUDIT-C) 2. How many drinks containing alcohol do you have on a typical day when you are drinking?: 1 or 2 3. How often do you have six or more drinks on one occasion?: Never Total Score: 0 THEE-7 AMB Questionnaire THEE-7 Date THEE - 7 assessed: 07/19/24 Source: Developed by Drs. Tobias Nova, Mary Muhammad, Ti Hunter and colleagues, with an educational delonte from [employer]. Physical exam (Primary Care) Tobacco/Smoking Status: Tobacco use Status Tobacco use date assessed 07/19/24 12/20/24 09:26 Patient Tobacco Use Status Never used Tobacco 12/20/24 09:26 e-Cigarette/Vaping Use Never Used 12/20/24 09:26 Thrive Assessment: Date of Thrive Assessment Date Thrive assessed 07/19/24 12/20/24 09:26 Telehealth Telehealth Telehealth Platform: [facility] Location of provider rendering services: practice address Location of patient: address on file Patient Identification confirmed using: Name, : Yes Telehealth method: video Patient verbally consented to treatment: Yes Patient verbally consented to billing insurance company: Yes Patient informed of any privacy concerns related to visit: Yes Minutes spent on Phone/Video with Pt.: 13 Coding Level of Care Code Tele Est Pt Level 3 (50286) Diagnoses Severe persistent asthma without complication J45.50 Asthma complication type: uncomplicated Shortness of breath R06.02 Assessment & Plan Assessment & Plan (1) Asthma, severe persistent: Code(s): J45.50 - Severe persistent asthma, uncomplicated Category: Medical Qualifiers: Asthma complication type: uncomplicated Qualified Code(s): J45.50 - Severe persistent asthma, uncomplicated (2) Shortness of breath: Code(s): R06.02 - Shortness of breath Category: Medical Plan History - The patient is a 29-year-old female presenting with asthma management concerns for recertification paperwork. - The patient has a history of chronic asthma and experiences shortness of breath. - The patient reports absences from work due to asthma symptoms occurring between 1 and 2 times per week. - She last completed recertification for her asthma condition last year. - The patient is currently under the care of a correctional casework specialist, with an upcoming appointment scheduled in January. Social History: - Employment: Patient works a schedule of 8 hours per day. Problem List - Chronic persistent asthma with flare up twice a week requiring absence from work Patient Instructions - paperwork filled will be ready for pickup tomorrow. f/u with correctional casework specialist , continue inhalers
== END 2024-12-20 09:25 | disposition home or self-care (01) ==
LOC: HO.HMCC 08:36
PROVIDERS: PCP Internal Medicine; Visit Provider Internal Medicine
DX: J45.50 Severe persistent asthma, uncomplicated (principal); R06.02 Shortness of breath

== ENCOUNTER → 2024-12-20 08:36 | Outpatient (BNVA) | payer OTHER, SELFPAY | PROVIDERS: PCP Internal Medicine; Visit Provider Internal Medicine | DX: Z13.89 Encounter for screening for other disorder (principal) ==

== ENCOUNTER 2025-01-16 14:30 | Outpatient (AMB) | payer OTHER, SELFPAY ==
[2025-01-16 14:35] VITALS: BP 128/70; PULSE 88; TEMP 36.3; O2SAT 97; BMI 28.4
--- NOTE | 2025-01-16 14:35 | MHC.PC.OV ---
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: No Is last menstrual period known: Yes Last menstrual period: 12/13/24 Post menopausal: No Patient : No Allergies No Known Allergies (No Known Allergies*) Allergy (Verified 01/16/25 14:39) Medication List - Last Reconciled 01/16/25 by Rober Osorio MD acetaminophen (Tylenol Extra Strength) 1,000 mg PO Q6H PRN albuterol sulfate 90 mcg/actuation 1 inh inhalation Q4-6H PRN Tobacco use date assessed: 01/16/25 Dental Screening Dental Screen Date: 07/19/24 Did you have a dental visit in the last 12 months?: Yes Did you have a dental problem in the last 6 months where you did not have access to dental care?: No Was dental information given to patient?: Patient has dentist HPI Annual PE HPI Details PE apt - The patient is a 29 year old female presenting with chronic asthma management concerns. - Diagnosed with chronic asthma, her symptoms have recently worsened, partly due to high temperatures and humidity which exacerbate her condition. She reports that her current inhaler, Pulmicort, is pending refill due to a need for a follow-up with the lead manufacturing technician. - Anxiety disorder has been noted, though the patient describes her anxiety as currently stable. - Reports intermittent headaches that are less intense than previous migraine episodes. - Vitamin D, B12, and iron deficiencies have been previous diagnoses with no current supplementation reported . - Recently developed eczema localized to the left cubital area, which is tender and itchy. 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 Family History: - Paternal side: Recent jaundice observed in father. - Grandmother (paternal): from liver-related complications, possibly an autoimmune disease. Health Maintenance - Fasting labs ordered for cholesterol, vitamin D, B12, metabolic profile, complete blood count, and thyroid function. - Emphasis on maintaining hydration and skin care for eczema. [place] of Care - Upcoming appointment with a lead manufacturing technician on the 15 of the month. Patient Instructions - Use Symbicort inhaler as prescribed: two puffs twice a day, rinse mouth afterward. - Use prescribed steroid cream for eczema nightly for several weeks. - Get fasting labs done before next follow-up. - Schedule and attend an CASTING HOUSE WORKER visit. - f.u 2 wks TV for rash and labs, staring symbicort - 1 yr PE Review of Systems - General: No fever no chills - Neurological: No headaches no dizziness - Ear nose throat: No sore throat no hearing difficulty no ear pain - Cardiovascular: No syncope, no chest pain, no palpitations - Gastrointestinal: No nausea vomiting or diarrhea - Endocrine: No polyuria polydipsia no heat intolerance - Genitourinary: No dysuria - Skin: No new complaints Physical Exam General: Cooperative, healthy appearing, comfortable, no acute distress Orientation: Patient oriented x3 Head: Normal to inspection Ears: Within normal limit visually Nose: Normal external nose present Face and sinus: Normal facial exam Eyes: Appearance normal, extraocular movement intact pupils reactive Neck: Normal visual inspection and supple Respiratory: Normal respiratory effort and able to speak in complete sentences. Clear to auscultation, no stridor Cardiovascular: S1 and S2 RRR breast exam declined GI: Normal to inspection. Soft to palpation and nontender Skin: Turgor normal, no acute findings, eczema noted in the left cubital area, tender from scratching Neuro: Patient oriented x3, motor sensory intact, balance intact, tandem pass Extremities: Normal to inspection [facility] Medical History Swelling of lower extremity Chronic headaches B12 deficiency Iron deficiency Fatigue Surgical History No pertinent past surgical history Family History Father No problems noted. Mother No problems noted. Sister No problems noted. Social History Housing: Apartment Patient Tobacco Use Status: Never used Tobacco e-Cigarette/Vaping Use: Never Used Current occupational status: employed Cognitive needs: No Hearing needs: No Vision needs: No Female Reproductive History Menstrual Date of last menstrual period: 12/13/24 Questionnaire PHQ-9 Over the last 2 weeks, how often have you been bothered by any of the following problems? 1. Little interest or pleasure in doing things: not at all 2. Feeling down, depressed, or hopeless: not at all 3. Trouble falling or staying asleep, or sleeping too much: not at all 4. Feeling tired or having little energy: not at all 5. Poor appetite or overeating: not at all 6. Feeling bad about yourself - or that you are a failure or have let yourself or your family down: not at all 7. Trouble concentrating on things, such as reading the newspaper or watching television: not at all 8. Moving or speaking so slowly that other people could have noticed. Or the opposite - being so fidgety or restless that you have been moving around a lot more than usual: not at all 9. Thoughts that you would be better off or of hurting yourself in some way: not at all Total score: 0 Depression Screening Interpretation: Negative Depression Screening Done: Yes [id number] - PHQ-9 Billing: Yes Source: Developed by Drs. Tobias Nova, Mary Muhammad, Ti Hunter and colleagues, with an educational delonte from [employer]. Thrive Questionnaire Date Thrive assessed: 07/19/24 I am a: Patient What is your living situation today?: I have a steady place to live Within the past 12 months, did the food you bought not last and you didn't have the money to get more?: Never true Within the past 12 months, did you worry whether your food would run out before you got money to buy more?: Never true Do you have trouble paying for medicines?: No Do you have trouble getting transportation to medical appointments?: No Do you have trouble paying your heating and electricity bill?: No Do you have trouble taking care of your child, family member or friend?: No Do you have trouble with day-to-day activities such as bathing, preparing meals, shopping, managing finances, etc.?: No Are you currently unemployed and looking for a job?: No Are you interested in more education?: No Please select the resources that you would like help with: None Currently or been in a relationship where the following occur: No concerns reported THRIVE Score: 0 AUDIT C Alcohol Use Questionnaire (AUDIT-C) 1. How often do you have a drink containing alcohol?: Monthly or less 2. How many drinks containing alcohol do you have on a typical day when you are drinking?: 1 or 2 3. How often do you have six or more drinks on one occasion?: Never Total Score: 1 THEE-7 AMB Questionnaire THEE-7 Date THEE - 7 assessed: 07/19/24 Feeling nervous, anxious, or on edge: 0 = Not at all Not being able to stop or control worryin = Not at all Worrying too much about different things: 0 = Not at all Trouble relaxin = Not at all Being so restless that it is hard to sit still: 0 = Not at all Becoming easily annoyed or irritable: 0 = Not at all Feeling afraid as if something awful might happen: 0 = Not at all Total THEE-7 score (0-4 normal; 5-9 mild; 10-14 moderate; 15-21 severe): 0 Source: Developed by Drs. Tobias Nova, Mary Muhammad, Ti Hunter and colleagues, with an educational delonte from [employer]. Physical exam (Primary Care) Vital Signs: Last Vital Signs Temp 97.3 F 01/16/25 14:35 Pulse 88 01/16/25 14:35 BP 128/70 01/16/25 14:35 Pulse Ox 97 01/16/25 14:35 Oxygen Delivery Method Room Air 01/16/25 14:35 BMI result Body Mass Index 28.4 Tobacco/Smoking Status: Tobacco use Status Tobacco use date assessed 01/16/25 01/16/25 14:41 Patient Tobacco Use Status Never used Tobacco 01/16/25 14:41 e-Cigarette/Vaping Use Never Used 01/16/25 14:41 PHQ-9: PHQ-9 Score PHQ-9: Total score 0 01/16/25 14:41 Depression Screening Interpretation: Negative Thrive Assessment: Date of Thrive Assessment Date Thrive assessed 07/19/24 01/16/25 14:41 Currently or been in a relationship where the following occur: No concerns reported Coding Level of Care Code Est Pt Level 3 (04822) Est Pt Prev Care 18-39y(69794) Diagnoses Encounter for general adult medical examination with abnormal findings Z00.01 Other eczema L30.8 Eczema type: other Severe persistent asthma without complication J45.50 Asthma complication type: uncomplicated Migraine without aura and without status migrainosus, not intractable G43.009 Intractability: not intractable Status migrainosus presence: without status migrainosus Vitamin D deficiency E55.9 B12 deficiency E53.8 Additional Codes PHQ-9 - 62605 - PHQ-9 Billing: Yes ([id number]) Assessment & Plan Assessment & Plan (1) Encounter for general adult medical examination with abnormal findings: Code(s): Z00.01 - Encounter for general adult medical examination with abnormal findings Category: Medical (2) Eczema: Code(s): L30.9 - Dermatitis, unspecified Category: Medical Qualifiers: Eczema type: other Qualified Code(s): L30.8 - Other specified dermatitis (3) Asthma, severe persistent: Code(s): J45.50 - Severe persistent asthma, uncomplicated Category: Medical Qualifiers: Asthma complication type: uncomplicated Qualified Code(s): J45.50 - Severe persistent asthma, uncomplicated (4) Migraine headache without aura: Code(s): G43.009 - Migraine without aura, not intractable, without status migrainosus Category: Medical Qualifiers: Intractability: not intractable Status migrainosus presence: without status migrainosus Qualified Code(s): G43.009 - Migraine without aura, not intractable, without status migrainosus (5) Vitamin D deficiency: Code(s): E55.9 - Vitamin D deficiency, unspecified Category: Medical (6) B12 deficiency: Code(s): E53.8 - Deficiency of other specified B group vitamins Category: Medical Plan PE apt - The patient is a 29 year old female presenting with chronic asthma management concerns. - Diagnosed with chronic asthma, her symptoms have recently worsened, partly due to high temperatures and humidity which exacerbate her condition. She reports that her current inhaler, Pulmicort, is pending refill due to a need for a follow-up with the lead manufacturing technician. - Anxiety disorder has been noted, though the patient describes her anxiety as currently stable. - Reports intermittent headaches that are less intense than previous migraine episodes. - Vitamin D, B12, and iron deficiencies have been previous diagnoses with no current supplementation reported . - Recently developed eczema localized to the left cubital area, which is tender and itchy. 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 Family History: - Paternal side: Recent jaundice observed in father. - Grandmother (paternal): from liver-related complications, possibly an autoimmune disease. Health Maintenance - Fasting labs ordered for cholesterol, vitamin D, B12, metabolic profile, complete blood count, and thyroid function. - Emphasis on maintaining hydration and skin care for eczema. [place] [facility] Care - Upcoming appointment with a lead manufacturing technician on the of the month. Patient Instructions - Use Symbicort inhaler as prescribed: two puffs twice a day, rinse mouth afterward. - Use prescribed steroid cream for eczema nightly for several weeks. - Get fasting labs done before next follow-up. - Schedule and attend an CASTING HOUSE WORKER visit. - f.u 2 wks TV for rash and labs, staring symbicort - 1 yr PE Orders: Orders Complete Blood Count Auto Diff Today E53.8 - Deficiency of other specified B group vitamins, E55.9 - Vitamin D deficiency, unspecified, G43.009 - Migraine without aura, not intractable, without status migrainosus, J45.50 - Severe persistent asthma, uncomplicated, L30.9 - Dermatitis, unspecified, Z00.01 - Encounter for general adult medical examination with abnormal findings Comprehensive [place]. Panel Fast Today E53.8 - Deficiency of other specified B group vitamins, E55.9 - Vitamin D deficiency, unspecified, G43.009 - Migraine without aura, not intractable, without status migrainosus, J45.50 - Severe persistent asthma, uncomplicated, L30.9 - Dermatitis, unspecified, Z00.01 - Encounter for general adult medical examination with abnormal findings Vitamin D 25-OH (D2 and D3) Today E53.8 - Deficiency of other specified B group vitamins, E55.9 - Vitamin D deficiency, unspecified, G43.009 - Migraine without aura, not intractable, without status migrainosus, J45.50 - Severe persistent asthma, uncomplicated, L30.9 - Dermatitis, unspecified, Z00.01 - Encounter for general adult medical examination with abnormal findings TSH reflex Free T4 Today E53.8 - Deficiency of other specified B group vitamins, E55.9 - Vitamin D deficiency, unspecified, G43.009 - Migraine without aura, not intractable, without status migrainosus, J45.50 - Severe persistent asthma, uncomplicated, L30.9 - Dermatitis, unspecified, Z00.01 - Encounter for general adult medical examination with abnormal findings Lipid Panel Today E53.8 - Deficiency of other specified B group vitamins, E55.9 - Vitamin D deficiency, unspecified, G43.009 - Migraine without aura, not intractable, without status migrainosus, J45.50 - Severe persistent asthma, uncomplicated, L30.9 - Dermatitis, unspecified, Z00.01 - Encounter for general adult medical examination with abnormal findings Vitamin B12 Today E53.8 - Deficiency of other specified B group vitamins, E55.9 - Vitamin D deficiency, unspecified, G43.009 - Migraine without aura, not intractable, without status migrainosus, J45.50 - Severe persistent asthma, uncomplicated, L30.9 - Dermatitis, unspecified, Z00.01 - Encounter for general adult medical examination with abnormal findings Medications: New budesonide-formoterol 160-4.5 mcg/actuation (Symbicort) 2 puffs inhalation BID 10.2 grams 0RF 30 days clobetasol 0.05% 1 appl topical BID 60 grams 1RF eczema 2 weeks
== END 2025-01-16 14:58 | disposition home or self-care (01) ==
LOC: HO.HMCC 14:30
PROVIDERS: PCP Internal Medicine; Visit Provider Internal Medicine
DX: Z00.01 Encounter for general adult medical examination with abnormal findings (principal); L30.8 Other specified dermatitis; J45.50 Severe persistent asthma, uncomplicated; G43.009 Migraine without aura, not intractable, without status migrainosus; E55.9 Vitamin D deficiency, unspecified; E53.8 Deficiency of other specified B group vitamins

== ENCOUNTER → 2025-01-16 14:30 | Outpatient (BNVA) | payer OTHER, SELFPAY | PROVIDERS: PCP Internal Medicine; Visit Provider Internal Medicine | DX: Z00.01 Encounter for general adult medical examination with abnormal findings (principal); F41.9 Anxiety disorder, unspecified; G43.909 Migraine, unspecified, not intractable, without status migrainosus; L30.8 Other specified dermatitis; J45.50 Severe persistent asthma, uncomplicated; G43.009 Migraine without aura, not intractable, without status migrainosus; E55.9 Vitamin D deficiency, unspecified; E53.8 Deficiency of other specified B group vitamins | CPT/HCPCS: 96127; 99212; 99395 ==

== ENCOUNTER 2025-01-22 11:08 | Outpatient (AMB) | payer OTHER, SELFPAY ==
[2025-01-22 11:10] VITALS: BP 102/66; PULSE 80; O2SAT 100; BMI 28.1
--- NOTE | 2025-01-22 11:10 | MHC.OFFVIS ---
Vital Signs 01/22/25 11:10 Height 5 ft 3 in Weight 158 lb 8 oz BMI 28.1 BP 102/66 Blood Pressure Location Rt brachial Position Sitting Pulse 80 Pulse Source Pulse Oximeter Pulse Oximetry (%) 100 Oxygen Delivery Method Room Air Intake Visit Reasons: Asthma Allergies No Known Allergies (No Known Allergies*) Allergy (Verified 01/22/25 11:12) HPI HPI Asthma: Details: Halle is a pleasant 29 year old female, never smoker, with underlying asthma. She was last evaluated in this office December 2023 but due to insurance issues has been unable to follow-up. She reports that her asthma symptoms are exacerbated by heat and physical activity, and she has recently started using Symbicort, which she has been on for four days, unsure effectiveness at this time. She experiences shortness of breath, a dry cough, and chest tightness, but denies wheezing. The patient uses albuterol twice daily with moderate effect. She has not visited urgent care or the hospital for breathing issues in the past three to six months. She also reports a history of seasonal allergies, which exacerbate her asthma symptoms. She typically experiences bronchitis once a year during the winter, requiring prednisone treatment, but has not been hospitalized for it. [facility] Medical History Swelling of lower extremity Chronic headaches B12 deficiency Iron deficiency Fatigue Surgical History No pertinent past surgical history Family History Father No problems noted. Mother No problems noted. Sister No problems noted. Social History Housing: Apartment Patient Tobacco Use Status: Never used Tobacco e-Cigarette/Vaping Use: Never Used Current occupational status: employed Cognitive needs: No Hearing needs: No Vision needs: No Review of Systems Const Denies chills, Denies excessive sweating, Denies fever(s), Denies headache(s) and Denies night sweats Eyes Denies dry eyes, Denies irritation and Denies itchy eyes ENT Reports Normal hearing present, Denies headache(s), Denies nasal congestion, Denies nasal discharge, Denies post nasal drip and Denies sore throat Card Denies chest pain, Denies chest pain at rest, Denies chest pain with activity, Denies claudication, Denies leg edema, Denies orthopnea and Denies paroxysmal nocturnal dyspnea Resp Denies chest congestion, Denies excessive phlegm production, Denies pain on inspiration, Denies pain with cough, Denies stridor and Denies wheezing Musc Denies myalgias Neuro Reports Normal hearing present and Denies headache(s) Endo Denies excessive sweating Mitch/Lymph Denies lymphadenopathy Aller/Immun Denies itchy eyes, Denies seasonal rhinorrhea and Denies wheezing Physical Exam Vital Signs: Last Vital Signs Pulse 80 01/22/25 11:10 BP 102/66 01/22/25 11:10 Pulse Ox 100 01/22/25 11:10 Oxygen Delivery Method Room Air 01/22/25 11:10 BMI result Body Mass Index 28.1 Const General: cooperative, healthy appearing, comfortable, no acute distress, well developed and alert Orientation/consciousness: patient oriented x3 Limitations: no limitations HEENT Head: Yes normal to inspection, Yes normocephalic and Yes atraumatic Ears: hearing grossly normal bilaterally and external ears normal Eyes General: appearance normal, both eyes and all related structures Eyelids: Yes eyelids normal Sclerae: sclerae normal EOM: EOMs intact bilaterally Neck Neck: Yes normal visual inspection and Yes no lymphadenopathy Lymphatic: no lymphadenopathy noted Chest Chest palpation & inspection: normal inspection of the chest Resp Effort & Inspection: normal respiratory effort, able to speak in complete sentences, no audible wheezes, no cough, no stridor, not tachypneic, no tripod positioning and no use of accessory muscles Auscultation: clear to auscultation bilaterally Cardio Jugular venous distension: no JVD Rate: regular rate Rhythm: regular rhythm Skin Other: warm, dry General skin exam: no rashes or lesions noted Neuro General: patient oriented x3 Cranial nerves: Yes Normal hearing present Cognition (Neuro): normal cognition Gait exam (Neuro): Normal gait present Extrem General: Yes normal to inspection, Yes capillary refill normal, Yes no clubbing, cyanosis or edema and Yes no pedal edema Psych Appearance: grossly normal and well kempt Speech and movement: Normal speech and movement present and Clear speech present Affect: normal affect Attitude: cooperative Thought process: Normal thought process present Thought content: Normal thought content present Insight: Good insight present (Psych) Judgement: Good judgement present (Psych) Assessment & Plan Assessment & Plan (1) Asthma: Code(s): J45.909 - Unspecified asthma, uncomplicated Category: Medical (2) Environmental allergies: Code(s): Z91.09 - Other allergy status, other than to drugs and biological substances Category: Medical Plan Advise patient to continue Symbicort at the current dosage of 160 mcg, two puffs twice daily, and will rinse her mouth after use. She is advised to use albuterol as needed for asthma symptoms, especially in poorly ventilated or humid environments. A refill for albuterol has been sent to her pharmacy. Previously a PFT was ordered however unable to schedule due to insurance issues, will reorder PFT. Will also order allergy testing to assess for an allergic component. All questions were answered and patient is in agreement of plan. Will follow up in 10-12 weeks or sooner if needed. Orders: Orders PFT pulmonary function test Today J45.909 - Unspecified asthma, uncomplicated Immunoglobulin E Today Z91.09 - Other allergy status, other than to drugs and biological substances Resp Allergy Profile Region I Today Z91.09 - Other allergy status, other than to drugs and biological substances Medications: Refilled albuterol sulfate 90 mcg/actuation 1 inh inhalation Q4-6H PRN 1 ea 2RF shortness of breath or wheezing Coding Level of Care Code Est Pt Level 4 (46807) Diagnoses Asthma J45.909 Environmental allergies Z91.09
== END 2025-01-22 11:37 | disposition home or self-care (01) ==
LOC: HO.HPSW 11:09
PROVIDERS: PCP Internal Medicine; Visit Provider Nurse Practitioner Family
DX: J45.909 Unspecified asthma, uncomplicated (principal); Z91.09 Other allergy status, other than to drugs and biological substances
CPT/HCPCS: 99214

== ENCOUNTER → 2025-01-22 11:08 | Outpatient (BNVA) | payer OTHER, SELFPAY | PROVIDERS: PCP Internal Medicine; Visit Provider Nurse Practitioner Family | DX: R06.02 Shortness of breath (principal); J45.909 Unspecified asthma, uncomplicated; Z91.09 Other allergy status, other than to drugs and biological substances | CPT/HCPCS: 99212 ==

== ENCOUNTER 2025-01-31 08:14 | Outpatient (AMB) | payer OTHER, SELFPAY ==
--- NOTE | 2025-01-31 09:11 | A.OFFPC_ITS ---
Intake Visit Reasons: 2 week telehealth Allergies No Known Allergies (No Known Allergies*) Allergy (Verified 01/22/25 11:12) Medication List - Last Reconciled 01/31/25 by Rober Osorio MD acetaminophen (Tylenol Extra Strength) 1,000 mg PO Q6H PRN albuterol sulfate 90 mcg/actuation 1 inh inhalation Q4-6H PRN budesonide-formoterol 160-4.5 mcg/actuation (Symbicort) 2 puffs inhalation BID 30 days clobetasol 0.05% 1 appl topical BID 2 weeks Tobacco use date assessed: 01/16/25 Dental Screening Dental Screen Date: 07/19/24 HPI 2 week telehealth HPI Details History - The patient is a 29-year-old female pr esenting with chest pain. - The chest pain has been present for ap proximately one week. - The pain is described as a burning sen sation located around the sternum in the middle of the chest. - The pain is exacerbated by deep breath ing and pressure on the area. - The patient has a history of asthma, t kunal they report their breathing is currently stable and self-reports it's okay. - The patient has been taking Tylenol to alleviate the pain, with some relief, but the pain persists. - There is no reported increase in sever ity of the chest pain over the past week. Medical History: - Diagnosis of asthma - Low levels of vitamin B12 identified i n recent labs - Eczema, currently managed with topical medication Medications: - Tylenol as needed for pain - Topical cream for eczema Diagnostic Results: - Labs: Complete Blood Count (CBC) is no rmal; electrolytes, kidney function, and liver enzymes are within normal limits; cholesterol levels are very good; vitamin B12 levels are low Problem List - Asthma - Chest pain - Vitamin B12 deficiency - Eczema Patient Instructions - Begin taking prescribed vitamin B12 noel pplement, one tablet per day. - Consider using Advil or ibuprofen for chest pain relief, as it may work better than Tylenol. - Continue monitoring asthma symptoms an d seek care if breathing issues worsen. Review of Systems - General: No fever no chills - Neurological: No headaches no dizziness - Ear nose throat: No sore throat no hearing difficulty no ear pain - Cardiovascular: No syncope, no chest pain, no palpitations - Gastrointestinal: No nausea vomiting or diarrhea [facility] Medical History Swelling of lower extremity Chronic headaches B12 deficiency Iron deficiency Fatigue Surgical History No pertinent past surgical history Family History Father No problems noted. Mother No problems noted. Sister No problems noted. Social History Housing: Apartment Patient Tobacco Use Status: Never used Tobacco e-Cigarette/Vaping Use: Never Used Current occupational status: employed Cognitive needs: No Hearing needs: No Vision needs: No Questionnaire Thrive Questionnaire Date Thrive assessed: 01/15/25 THEE-7 AMB Questionnaire THEE-7 Date THEE - 7 assessed: 07/19/24 Source: Developed by Drs. Tobias Nova, Mary Muhammad, Ti Hunter and colleagues, with an educational delonte from [employer]. Physical exam (Primary Care) Tobacco/Smoking Status: Tobacco use Status Tobacco use date assessed 01/16/25 01/31/25 09:12 Patient Tobacco Use Status Never used Tobacco 01/31/25 09:12 e-Cigarette/Vaping Use Never Used 01/31/25 09:12 Thrive Assessment: Date of Thrive Assessment Date Thrive assessed 01/15/25 01/31/25 09:12 Telehealth Telehealth Telehealth Platform: [facility] Location of provider rendering services: practice address Location of patient: address on file Patient Identification confirmed using: Name, : Yes Telehealth method: video Patient verbally consented to treatment: Yes Patient verbally consented to billing insurance company: Yes Patient informed of any privacy concerns related to visit: Yes Minutes spent on Phone/Video with Pt.: 13 Coding Level of Care Code Tele Est Pt Level 3 (31479) Diagnoses Costochondritis, acute M94.0 Severe persistent asthma without complication J45.50 Asthma complication type: uncomplicated Other eczema L30.8 Eczema type: other B12 deficiency E53.8 Assessment & Plan Assessment & Plan (1) Costochondritis, acute: Code(s): M94.0 - Chondrocostal junction syndrome [[place]] Category: Medical (2) Asthma, severe persistent: Code(s): J45.50 - Severe persistent asthma, uncomplicated Category: Medical Qualifiers: Asthma complication type: uncomplicated Qualified Code(s): J45.50 - Severe persistent asthma, uncomplicated (3) Eczema: Code(s): L30.9 - Dermatitis, unspecified Category: Medical Qualifiers: Eczema type: other Qualified Code(s): L30.8 - Other specified dermatit is (4) B12 deficiency: Code(s): E53.8 - Deficiency of other specified B group vitamins Category: Medical Plan History - The patient is a 29-year-old female presenting with chest pain. - The chest pain has been present for approximately one week. - The pain is described as a burning sensation located around the sternum in the middle of the chest. - The pain is exacerbated by deep breathing and pressure on the area. - The patient has a history of asthma, though they report their breathing is currently stable and self-reports it's okay. - The patient has been taking Tylenol to alleviate the pain, with some relief, but the pain persists. - There is no reported increase in severity of the chest pain over the past week. Medical History: - Diagnosis of asthma - Low levels of vitamin B12 identified in recent labs - Eczema, currently managed with topical medication Medications: - Tylenol as needed for pain - Topical cream for eczema Diagnostic Results: - Labs: Complete Blood Count (CBC) is normal; electrolytes, kidney function, and liver enzymes are within normal limits; cholesterol levels are very good; vitamin B12 levels are low Problem List - Asthma - Chest pain - Vitamin B12 deficiency - Eczema Patient Instructions - Begin taking prescribed vitamin B12 supplement, one tablet per day. - Consider using Advil or ibuprofen for chest pain relief, as it may work better than Tylenol. - Continue monitoring asthma symptoms and seek care if breathing issues worsen. Medications: New cyanocobalamin (vitamin B-12) 1,000 mcg PO DAILY 90 tabs 0RF 90 days Refilled budesonide-formoterol 160-4.5 mcg/actuation (Symbicort) 2 puffs inhalation BID 10.2 grams 2RF 30 days
== END 2025-01-31 11:53 | disposition home or self-care (01) ==
LOC: HO.HMCC 08:14
PROVIDERS: PCP Internal Medicine; Visit Provider Internal Medicine
DX: M94.0 Chondrocostal junction syndrome [Tietze] (principal); J45.50 Severe persistent asthma, uncomplicated; L30.8 Other specified dermatitis; E53.8 Deficiency of other specified B group vitamins